=== PATIENT | male | born 1930 | race Caucasian/White ===

== ENCOUNTER 2018-06-13 14:34 | Emergency (ER) | payer MEDICARE, OTHER ==
[2018-06-13 15:04] VITALS: BP 146/70
--- NOTE | 2018-06-13 15:20 | EDM.PDOC ---
ED HPI GENERAL MEDICAL PROBLEM - General Chief Complaint: Lower Extremity Injury/Pain Stated Complaint: LT KNEE INJURY Time Seen by Provider: 06/13/18 15:06 Source of Information: Reports: Patient, Family, RN Notes Reviewed - History of Present Illness INITIAL COMMENTS - FREE TEXT/NARRATIVE: 87 year old male fell out of bed early this AM, landed on L knee and injured L small toe. was able to walk this past morning but now knee pain worsening to where he can't walk. L leg is swollen. L small toe is bruised. Also has low grade fever on arrival to ED, having chills at time of my exam. he is not coughing. Denies abd pain or voiding sx. 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 last noc Left Knee Pain Score (Numeric/FACES): 8 - Related Data Allergies Allergy/AdvReac Type Severity Reaction Status Date / Time ampicillin Allergy Cannot Verified 05/31/16 13:22 Remember hydrocodone Allergy Cannot Verified 05/31/16 13:22 Remember potassium Allergy Cannot Verified 05/31/16 13:22 Remember tramadol Allergy Cannot Verified 05/31/16 13:22 Remember Home Meds: Home Meds Benazepril HCl [Lotensin] 20 mg PO DAILY 05/19/14 [History] amLODIPine Besylate [Amlodipine Besylate] 10 mg PO DAILY 05/19/14 [History] Tamsulosin [Flomax] 0.4 mg PO BEDTIME 02/26/15 [History] Allopurinol [Zyloprim] 300 mg PO DAILY 07/07/15 [History] Multivitamin [Multivitamins] 1 tab PO DAILY 08/30/15 [History] Pantoprazole Sodium [Protonix] 40 mg PO DAILY 30 Days suspdr.pkt 09/02/15 [Rx] Aspirin 81 mg PO DAILY 09/29/15 [History] Ciprofloxacin HCl [Cipro] 500 mg PO BID #14 tablet 06/13/18 [Rx] Ezetimibe [Zetia] 10 mg PO DAILY 06/13/18 [History] Furosemide [Lasix] 40 mg PO DAILY 06/13/18 [History] Metoprolol Succinate 50 mg PO BID 06/13/18 [History] Pravastatin [Pravachol] 80 mg PO DAILY 06/13/18 [History] metFORMIN [Glucophage XR] 250 mg PO BID 06/13/18 [History] predniSONE [Prednisone] 20 mg PO BID PRN 06/13/18 [History] Past Medical History Other HEENT History: Bilateral hearing aids, glasses Cardiovascular History: Reports: CAD, High Cholesterol, Hypertension, [place] Respiratory History: Reports: Sleep Apnea Other Respiratory History: CPAP used at home, Gastrointestinal History: Reports: GERD, Hemorrhoids Genitourinary History: Reports: Renal Calculus Other Genitourinary History: Prostate cancer - seeds implanted. Musculoskeletal History: Reports: Gout, Osteoarthritis Neurological History: Reports: CVA Other Neuro History: no residual affect -improved with therapy Endocrine/Metabolic History: Reports: None Oncologic (Cancer) History: Reports: Prostate Other Oncologic History: Seeds implanted - Past Surgical History Cardiovascular Surgical History: Reports: Carotid Endarterectomy, Coronary Artery Stent GI Surgical History: Reports: Colonoscopy, Hernia, Inguinal Male Surgical History: Reports: Other (See Below) Social & Family History - Tobacco Use Smoking Status *Q: Former Smoker Used Tobacco, but Quit: Yes Month/Year Tobacco Last Used: 30 yr - Caffeine Use Caffeine Use: Reports: Coffee, Soda, Tea Other Caffeine Use: 3 cups per day - Recreational Drug Use Recreational Drug Use: No Review of Systems - Review of Systems Review Of Systems: See Below Constitutional: Reports: Chills, Fever (low grade fever on arrival to ED, not aware of prior fever) Nose: Reports: No Symptoms Mouth/Throat: Reports: No Symptoms Respiratory: Denies: Shortness of Breath, Pleuritic Chest Pain, Cough Cardiovascular: Denies: Chest Pain GI/Abdominal: Denies: Abdominal Pain, Nausea, Vomiting Musculoskeletal: Reports: Joint Pain (L knee) Skin: Reports: Bruising (L small toe) Neurological: Reports: Difficulty Walking. Denies: Numbness, Tingling ED EXAM, GENERAL - Physical Exam Exam: See Below General Appearance: Alert, Other (having shaking chills at time of my exam) Nose: Normal Inspection Throat/Mouth: Normal Inspection, Normal Oropharynx Head: Atraumatic. No: Facial Swelling Neck: Supple, Full Range of Motion Respiratory/Chest: No Respiratory Distress, Lungs Clear, Normal Breath Sounds. No: Rales, Rhonchi, Wheezing Cardiovascular: Tachycardia GI/Abdominal: Soft, Non-Tender Back Exam: No: CVA Tenderness (L), CVA Tenderness (R) Extremities: Normal Inspection, Pedal Edema (L leg, moderate), Other (moderate tenderness L knee, especially L post knee). No: Increased Warmth, Pallor, Redness Neurological: Alert, Oriented, No Motor/Sensory Deficits Skin Exam: Warm, Dry, Normal Color Course - Vital Signs Last Recorded V/S: Last Vital Signs Temp 100.1 F 06/13/18 15:02 Pulse 100 06/13/18 15:02 Resp 20 06/13/18 15:02 BP 146/70 H 06/13/18 15:02 Pulse Ox 93 L 06/13/18 15:02 - Orders/Labs/Meds Orders: Active Orders 24 hr Category Date Time Status Peripheral IV Care [RC] . DIRECTED Care 06/13/18 15:28 Active Chest 1V Frontal [CR] Stat Exams 06/13/18 15:27 Taken Knee Min 4V Lt [CR] Stat Exams 06/13/18 15:29 Taken Toes Great Toe Lt TA [CR] Stat Exams 06/13/18 15:29 Taken VL Duplex Lwr Ext Veins Ltd Lt [US] Stat Exams 06/13/18 15:28 Taken CULTURE URINE [RM] Stat Lab 06/13/18 19:16 Ordered UA W/MICROSCOPIC [URIN] Stat Lab 06/13/18 17:37 Ordered Peripheral IV Insertion Adult [OM.PC] Stat Oth 06/13/18 15:28 Ordered Labs: Laboratory Tests 06/13/18 06/13/18 06/13/18 Range/Units 15:50 15:50 15:50 WBC 12.17 H (4.23-9.07) K/mm3 RBC 4.34 L (4.63-6.08) M/mm3 Hgb 12.2 L (13.7-17.5) gm/L Hct 38.2 L (40.1-51.0) % MCV 88.0 (79.0-92.2) fl MCH 28.1 (25.7-32.2) pg MCHC 31.9 L (32.2-35.5) g/dl RDW Std Deviation 51.5 H (35.1-43.9) fL Plt Count 201 (163-337) K/mm3 MPV 11.3 (9.4-12.3) fl Neutrophils % (Manual) 88 H (40-60) % Band Neutrophils % 0 (0-10) % Lymphocytes % (Manual) 3 L (20-40) % Atypical Lymphs % 0 % Monocytes % (Manual) 9 (2-10) % Eosinophils % (Manual) 0 L (0.8-7.0) % Basophils % (Manual) 0 L (0.2-1.2) Platelet Estimate Adequate Plt Morphology Comment Normal RBC Morph Comment Normal Sodium 140 (136-145) mEq/L Potassium 4.3 (3.5-5.1) mEq/L Chloride 103 (98-107) mEq/L Carbon Dioxide 26 (21-32) mEq/L Anion Gap 15.3 H (5-15) BUN 29 H (7-18) mg/dL Creatinine 1.6 H (0.7-1.3) mg/dL Est Cr Clr Drug Dosing 26.67 mL/min Estimated GFR (MDRD) 41 (>60) mL/min BUN/Creatinine Ratio 18.1 H (14-18) Glucose 150 H (83-115) mg/dL Lactic Acid (0.4-2.0) mmol/L Calcium 9.0 (8.5-10.1) mg/dL Total Bilirubin 0.5 (0.2-1.0) mg/dL AST 28 (15-37) U/L ALT 22 (16-63) U/L Alkaline Phosphatase 87 (46-116) U/L C-Reactive Protein 8.7 H* (<1.0) mg/dL Total Protein 7.4 (6.4-8.2) g/dl Albumin 3.3 L (3.4-5.0) g/dl Globulin 4.1 gm/dL Albumin/Globulin Ratio 0.8 L (1-2) Urine Color (Yellow) Urine Appearance (Clear) Urine pH (5.0-8.0) Ur Specific Alsey (1.005-1.030) Urine Protein (Negative) Urine Glucose (UA) (Negative) Urine Ketones (Negative) Urine Occult Blood (Negative) Urine Nitrite (Negative) Urine Bilirubin (Negative) Urine Urobilinogen (0.2-1.0) Ur Leukocyte Esterase (Negative) Urine RBC (0-5) /hpf Urine WBC (0-5) /hpf Urine WBC Clumps (NOT SEEN) /hpf Ur Epithelial Cells (0-5) /hpf Urine Bacteria (FEW) /hpf Hyaline Casts (0-5) /lpf Urine Mucus (FEW) /hpf 06/13/18 06/13/18 Range/Units 15:50 17:37 WBC (4.23-9.07) K/mm3 RBC (4.63-6.08) M/mm3 Hgb (13.7-17.5) gm/L Hct (40.1-51.0) % MCV (79.0-92.2) fl MCH (25.7-32.2) pg MCHC (32.2-35.5) g/dl RDW Std Deviation (35.1-43.9) fL Plt Count (163-337) K/mm3 MPV (9.4-12.3) fl Neutrophils % (Manual) (40-60) % Band Neutrophils % (0-10) % Lymphocytes % (Manual) (20-40) % Atypical Lymphs % % Monocytes % (Manual) (2-10) % Eosinophils % (Manual) (0.8-7.0) % Basophils % (Manual) (0.2-1.2) Platelet Estimate Plt Morphology Comment RBC Morph Comment Sodium (136-145) mEq/L Potassium (3.5-5.1) mEq/L Chloride (98-107) mEq/L Carbon Dioxide (21-32) mEq/L Anion Gap (5-15) BUN (7-18) mg/dL Creatinine (0.7-1.3) mg/dL Est Cr Clr Drug Dosing mL/min Estimated GFR (MDRD) (>60) mL/min BUN/Creatinine Ratio (14-18) Glucose (83-115) mg/dL Lactic Acid 1.7 (0.4-2.0) mmol/L Calcium (8.5-10.1) mg/dL Total Bilirubin (0.2-1.0) mg/dL AST (15-37) U/L ALT (16-63) U/L Alkaline Phosphatase (46-116) U/L C-Reactive Protein (<1.0) mg/dL Total Protein (6.4-8.2) g/dl Albumin (3.4-5.0) g/dl Globulin gm/dL Albumin/Globulin Ratio (1-2) Urine Color Yellow (Yellow) Urine Appearance Clear (Clear) Urine pH 6.0 (5.0-8.0) Ur Specific Alsey 1.025 (1.005-1.030) Urine Protein 1+ H (Negative) Urine Glucose (UA) Negative (Negative) Urine Ketones Negative (Negative) Urine Occult Blood 1+ H (Negative) Urine Nitrite Negative (Negative) Urine Bilirubin Negative (Negative) Urine Urobilinogen 0.2 (0.2-1.0) Ur Leukocyte Esterase 1+ H (Negative) Urine RBC 5-10 H (0-5) /hpf Urine WBC 5-10 H (0-5) /hpf Urine WBC Clumps Few (NOT SEEN) /hpf Ur Epithelial Cells 0-5 (0-5) /hpf Urine Bacteria Few (FEW) /hpf Hyaline Casts 0-5 (0-5) /lpf Urine Mucus Few (FEW) /hpf Meds: Medications Discontinued Medications Generic Name Dose Route Start Last Admin Trade Name Freq PRN Reason Stop Dose Admin Acetaminophen 975 mg 06/13/18 15:34 06/13/18 16:08 Tylenol PO 06/13/18 15:35 975 mg NOW ONE Administration Hydromorphone HCl 0.25 mg 06/13/18 15:34 06/13/18 16:05 Dilaudid IVPUSH 06/13/18 15:35 0.25 mg ONETIME ONE Administration Ceftriaxone Sodium 1 gm/ 100 mls @ 200 mls/hr 06/13/18 18:35 06/13/18 18:50 Sodium Chloride IV 06/13/18 19:04 200 mls/hr ONETIME ONE Administration Sodium Chloride 500 mls @ 999 mls/hr 06/13/18 18:37 06/13/18 18:50 Normal Saline IV 06/13/18 19:07 999 mls/hr .BOLUS ONE Administration Sodium Chloride 10 ml 06/13/18 15:28 06/13/18 16:08 Saline Flush FLUSH 10 ml ASDIRECTED PRN Administration Keep Vein Open - Re-Assessments/Exams Free Text/Narrative Re-Assessment/Exam: 06/13/18 18:57 X rays of the knee and foot show no fx, US LLE neg for DVT. He has a low grade UTI, will give rocephin 1 gram IV and some IV fluid prior to discharge. He does feel up to going home. He does have a walker at home. Departure - Departure Time of Disposition: 19:20 Disposition: Home, Self-Care 01 Condition: Fair Clinical Impression: Fall Qualifiers: Encounter type: initial encounter Qualified Code(s): W19.XXXA - Unspecified fall, initial encounter Contusion of knee Qualifiers: Encounter type: initial encounter Laterality: left Qualified Code(s): S80.02XA - Contusion of left knee, initial encounter UTI (urinary tract infection) Qualifiers: Urinary tract infection type: acute cystitis Hematuria presence: without hematuria Qualified Code(s): N30.00 - Acute cystitis without hematuria - Discharge Information Prescriptions: Ciprofloxacin HCl [Cipro] 500 mg PO BID #14 tablet Instructions: Urinary Tract Infection, Adult Referrals: Johan Khan MD [Primary Care Provider] - Forms: ED Department Discharge Additional Instructions: drink plenty of water and tea to maintain hydration, cipro antibiotic 500 mg twice daily for 1 week. Dwight wrap L knee, use walker until knee and leg pain resolving. Follow up clinic with your regular medical provider in about 3 days if possible or first available appointment. A urine culture has been done. Results should be available in about 48 hours. Return to ED if symptoms worsening in any way. - My Orders Last 24 Hours: My Active Orders 06/13/18 15:27 Chest 1V Frontal [CR] Stat 06/13/18 15:28 Peripheral IV Care [RC] . DIRECTED VL Duplex Lwr Ext Veins Ltd Lt [US] Stat Peripheral IV Insertion Adult [OM.PC] Stat 06/13/18 15:29 Knee Min 4V Lt [CR] Stat Toes Great Toe Lt TA [CR] Stat 06/13/18 17:37 UA W/MICROSCOPIC [URIN] Stat 06/13/18 19:16 CULTURE URINE [RM] Stat - Assessment/Plan Last 24 Hours: My Active Orders 06/13/18 15:27 Chest 1V Frontal [CR] Stat 06/13/18 15:28 Peripheral IV Care [RC] . DIRECTED VL Duplex Lwr Ext Veins Ltd Lt [US] Stat Peripheral IV Insertion Adult [OM.PC] Stat 06/13/18 15:29 Knee Min 4V Lt [CR] Stat Toes Great Toe Lt TA [CR] Stat 06/13/18 17:37 UA W/MICROSCOPIC [URIN] Stat 06/13/18 19:16 CULTURE URINE [RM] Stat
[2018-06-13] MEDS ORDERED: Sodium Chloride 0.9% 10 ML Syringe FLUSH PRN (15:28)
[2018-06-13] MEDS ORDERED: HYDROmorphone 0.5 MG/0.5 ML SYRINGE IVPUSH ONE (15:34)
[2018-06-13] MEDS ORDERED: Acetaminophen 325 MG Tab PO ONE (15:34)
[2018-06-13] MEDS ORDERED: cefTRIAXone 1 GM in Sodium Chloride 0.9% 100 ML IV ONE (18:35)
[2018-06-13] MEDS ORDERED: Sodium Chloride 0.9% 500 ML IV ONE (18:37)
--- NOTE | 2018-06-15 10:02 | US ---
Left lower extremity deep venous ultrasound: Duplex and color flow imaging was obtained of the left common femoral, proximal greater saphenous, superficial femoral, popliteal, posterior tibial and peroneal veins. Right common femoral vein was also evaluated. Findings: No popliteal cyst is seen on the left side. Normal phasic flow, augmentation and compression is seen. Impression: 1. No evidence of deep venous thrombosis within the left lower extremity or within the right common femoral vein. Left popliteal fossa shows no ultrasound abnormality. Diagnostic code #1 I agree with preliminary report issued by [facility] ([facility] report finalized on 06/13/18, 6:57 PM Central Time)
--- NOTE | 2018-06-15 10:02 | CR ---
Left fifth toe: Three views of the left fifth toe were obtained. Fracture is felt to be present within the corner base of the distal phalanx as well as within the distal corner of the proximal phalanx. Intra-articular extension is noted of both fractures. Alignment appears to remain anatomic. No additional bony abnormality is seen other than osteopenia. Soft tissue swelling is noted. Impression: 1. Nondisplaced fractures as described above. 2. Osteopenia and soft tissue swelling is noted. Diagnostic code #3
--- NOTE | 2018-06-15 10:02 | CR ---
Left knee: Four portable views of the left knee were obtained. Comparison: No prior knee exam. Mild medial joint space narrowing is seen. Lateral joint space is preserved. Soft tissue swelling is noted. No joint effusion is seen. Osteopenia is noted. Minimal vascular calcification is present. No acute fracture or other abnormality is appreciated. Impression: 1. Findings as noted above. No acute bony abnormality is identified. Diagnostic code #2
--- NOTE | 2018-06-15 10:02 | CR ---
Chest: Portable view of the chest was obtained. Comparison: Prior chest x-ray of 07/08/15. Lung markings are mildly increased which appear fairly stable from previous exam. Heart size accentuated from portable technique. Tortuous thoracic aorta is seen. Bony structures appear unremarkable for the patient's age. Impression: 1. Increased lung markings are felt to be fairly stable from prior chest x-ray. Nothing acute is appreciated. Diagnostic code #2
== END 2018-06-13 19:30 | disposition home or self-care (01) ==
LOC: JD.ED 14:34
DX: S80.02XA Contusion of left knee, initial encounter (principal); N30.00 Acute cystitis without hematuria; I10 Essential (primary) hypertension; E78.00 Pure hypercholesterolemia, unspecified; I25.2 Old myocardial infarction; I25.10 Atherosclerotic heart disease of native coronary artery without angina pectoris; K21.9 Gastro-esophageal reflux disease without esophagitis; Z88.0 Allergy status to penicillin; Z88.5 Allergy status to narcotic agent; Z88.8 Allergy status to other drugs, medicaments and biological substances; Z79.899 Other long term (current) drug therapy; Z79.84 Long term (current) use of oral hypoglycemic drugs; Z86.73 Personal history of transient ischemic attack (TIA), and cerebral infarction without residual deficits; Z87.891 Personal history of nicotine dependence; W19.XXXA Unspecified fall, initial encounter
CPT/HCPCS: 36415; 71045; 73564; 73660; 80053; 81001; 83605; 85007; 85027; 86140; 87086; 93971; 96365; 96375; 99284; A9270; J0696; J1170; J7030; J7040; J7050

== ENCOUNTER 2018-11-26 12:51 | Emergency (ER) | payer MEDICARE, OTHER ==
--- NOTE | 2018-11-26 13:32 | EDM.PDOC ---
ED HPI GENERAL MEDICAL PROBLEM - General Chief Complaint: Genitourinary Problem Stated Complaint: UNABLE TO URINATE Time Seen by Provider: 11/26/18 13:32 Source of Information: Reports: Patient History Limitations: Reports: No Limitations - History of Present Illness INITIAL COMMENTS - FREE TEXT/NARRATIVE: 88-year-old male presents the ED with acute urinary retention. He was seen earlier this morning and was having trouble voiding but when she got to the ED he spontaneously was able to void. Since going home he voided twice but since that time i.e. 10:30 he has been unable to void at all. Has diffuse lower abdominal discomfort. Intermittent cramping pain. Was in the parking lot he did get a gush of urine come out of the bladder which soaked his pants. He has had previous prostate cancer treated with cesium seed implant. Doesn't have a Rain catheter twice in the past. Onset: Today Onset Date: 11/26/18 Duration: Hour(s): Location: Reports: Abdomen Quality: Reports: Ache (Diffuse lower abdominal pain with inability to pass his urine.), Pressure, Other Severity: Moderate (Occasional cramping pain) Improves with: Reports: None ( 7 on a 10) Worsens with: Reports: None Context: Reports: Other (Spontaneous occurrence). Denies: Activity, Exercise, Lifting, Sick Contact, Trauma Associated Symptoms: Reports: No Other Symptoms, Nausea/Vomiting. 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) (No recent changes to any was medications.) Lower Pelvic Pain Score (Numeric/FACES): 8 - Related Data Allergies Allergy/AdvReac Type Severity Reaction Status Date / Time ampicillin Allergy Cannot Verified 11/26/18 13:26 Remember hydrocodone Allergy Cannot Verified 11/26/18 13:26 Remember potassium Allergy Cannot Verified 11/26/18 13:26 Remember tramadol Allergy Cannot Verified 11/26/18 13:26 Remember Home Meds: Home Meds Benazepril HCl [Lotensin] 20 mg PO DAILY 05/19/14 [History] amLODIPine Besylate [Amlodipine Besylate] 10 mg PO DAILY 05/19/14 [History] Tamsulosin [Flomax] 0.4 mg PO BEDTIME 02/26/15 [History] Allopurinol [Zyloprim] 300 mg PO DAILY 07/07/15 [History] Multivitamin [Multivitamins] 1 tab PO DAILY 08/30/15 [History] Pantoprazole Sodium [Protonix] 40 mg PO DAILY 30 Days suspdr.pkt 09/02/15 [Rx] Ezetimibe [Zetia] 10 mg PO DAILY 06/13/18 [History] Furosemide [Lasix] 40 mg PO DAILY 06/13/18 [History] Metoprolol Succinate 50 mg PO BID 06/13/18 [History] Pravastatin [Pravachol] 80 mg PO DAILY 06/13/18 [History] metFORMIN [Glucophage XR] 250 mg PO BID 06/13/18 [History] predniSONE [Prednisone] 20 mg PO BID PRN 06/13/18 [History] Aspirin [Ecotrin] 81 mg PO DAILY 11/26/18 [History] Nitroglycerin [Nitrostat] 0.4 mg SL ASDIRECTED PRN 11/26/18 [History] Vit C/Gonzales & Celery Ex/Grp E [Tart Gonzales] 1 cap PO DAILY 11/26/18 [History] Past Medical History Other HEENT History: Bilateral hearing aids, glasses Cardiovascular History: Reports: CAD, High Cholesterol, Hypertension, PA, Stents (Has [address] Respiratory History: Reports: Sleep Apnea Other Respiratory History: CPAP used at home, Gastrointestinal History: Reports: GERD, Hemorrhoids Genitourinary History: Reports: Renal Calculus Other Genitourinary History: Prostate cancer - seeds implanted. Musculoskeletal History: Reports: Gout, Osteoarthritis Neurological History: Reports: CVA Other Neuro History: no residual affect -improved with therapy Endocrine/Metabolic History: Reports: None Oncologic (Cancer) History: Reports: Prostate Other Oncologic History: Seeds implanted - Past Surgical History Cardiovascular Surgical History: Reports: Carotid Endarterectomy, Coronary Artery Stent GI Surgical History: Reports: Colonoscopy, Hernia, Inguinal Male Surgical History: Reports: Other (See Below) Social & Family History - Caffeine Use Caffeine Use: Reports: Coffee, Soda, Tea Other Caffeine Use: 3 cups per day - Living Situation & Occupation Living situation: Reports: Occupation: Retired ED ROS GENERAL - Review of Systems Review Of Systems: See Below Constitutional: Reports: Fatigue (From not sleeping much last night.). Denies: Fever, Chills, Malaise, Weakness HEENT: Reports: Glasses Respiratory: Reports: Shortness of Breath. Denies: Wheezing, Pleuritic Chest Pain, Cough Cardiovascular: Reports: No Symptoms, Blood Pressure Problem Endocrine: Reports: Fatigue GI/Abdominal: Reports: Abdominal Pain, Other (Bowels work normally this morning) . Denies: Constipation (See history of present illness.), Diarrhea : Reports: Frequency, Urinary Retention Musculoskeletal: Reports: Back Pain, Joint Pain Skin: Reports: No Symptoms (Knees hips and neck at times) Neurological: Reports: No Symptoms Psychiatric: Reports: No Symptoms Hematologic/Lymphatic: Reports: No Symptoms Immunologic: Reports: No Symptoms ED EXAM, RENAL/ - Physical Exam Exam: See Below Exam Limited By: No Limitations General Appearance: Alert, WD/WN, Moderate Distress. No: Anxious Eye Exam: Bilateral Eye: Normal Inspection Throat/Mouth: Normal Inspection, Normal Lips, Normal Oropharynx, Other (Upper dentures) Neck: Normal Inspection, Supple, Non-Tender, Full Range of Motion. No: Carotid Bruit, Lymphadenopathy (L), Lymphadenopathy (R) Respiratory/Chest: No Respiratory Distress, Lungs Clear, Normal Breath Sounds, No Accessory Muscle Use, Respiratory Distress Cardiovascular: Normal Peripheral Pulses (Mild tachypnea and 18/m but sats are only 92% on room air.), Regular Rate, Rhythm, No Edema, No Gallop GI/Abdominal: No Organomegaly, Distended (Dullness to percussion up past the umbilicus with tenderness and firmness to the abdomen below the umbilicus to the suprapubic symphysis compatible with bladder distention.), Abnormal Bowel Sounds (Bowel sounds are very quiet sent.) (Male) Exam: No Hernia Extremities: Normal Inspection, Normal Range of Motion, Other Neurological: Alert, Oriented (Evidence of posterior 30 changes both knees and hips.), CN II-XII Intact, Normal Cognition Psychiatric: Normal Affect, Anxious, Other (In obvious discomfort.) EKG INTERPRETATION EKG Date: 11/26/18 Time: 18:03 Rhythm: Other (Frequent unifocal PVCs) Rate (Beats/Min): 94 [place]: Normal P-Wave: Present (Borderline first-degree AV block) QRS: Other (Upon her branch block pattern. Left ventricular hypertrophy pattern. Q waves V1 to V5 suspect old anteroseptal myocardial infarction) ST-T: Other (Decreased voltage in the limb leads.) QT: Prolonged (QT interval is borderline prolonged.) EKG Interpretation Comments: Abnormal ECG Course - Vital Signs Last Recorded V/S: Last Vital Signs Temp 36.8 C 11/26/18 17:55 Pulse 85 11/26/18 13:19 Resp 20 11/26/18 17:55 BP 135/81 11/26/18 17:55 Pulse Ox 96 11/26/18 17:55 - Orders/Labs/Meds Orders: Active Orders 24 hr Category Date Time Status Bladder Scan [RC] ASDIRECTED Care 11/26/18 13:37 Active EKG Documentation Completion [RC] STAT Care 11/26/18 17:48 Active Rain Catheter Insertion [Insert Urinary Catheter] [OM. Care 11/26/18 13:45 Ordered PC] Q24H Urinary Catheter Assessment [RC] ASDIRECTED Care 11/26/18 13:41 Active Chest 1V Frontal [CR] Stat Exams 11/26/18 17:48 Taken COMPREHENSIVE METABOLIC PN,CMP [CHEM] Stat Lab 11/26/18 18:10 Received CRP [C-REACTIVE PROTEIN] [CHEM] Stat Lab 11/26/18 18:10 Received CULTURE URINE [RM] Stat Lab 11/26/18 14:28 Received MAGNESIUM [CHEM] Stat Lab 11/26/18 18:10 Received PRO B-TYPE NATRIUR PEPT,BNPPRO [CHEM] Stat Lab 11/26/18 18:10 Received PSA SCREEN [CHEM] Stat Lab 11/26/18 18:10 Received Sodium Chloride 0.9% [Normal Saline] 1,000 ml Med 11/26/18 15:00 Active IV ASDIRECTED Medication Orders Sodium Chloride (Normal Saline) 1,000 mls @ 125 mls/hr IV ASDIRECTED ABRAHAM Last Admin: 11/26/18 15:45 Dose: 125 mls/hr Labs: Laboratory Tests 11/26/18 11/26/18 Range/Units 14:28 18:10 WBC 9.07 (4.23-9.07) K/mm3 RBC 4.43 L (4.63-6.08) M/mm3 Hgb 12.1 L (13.7-17.5) gm/L Hct 38.1 L (40.1-51.0) % MCV 86.0 (79.0-92.2) fl MCH 27.3 (25.7-32.2) pg MCHC 31.8 L (32.2-35.5) g/dl RDW Std Deviation 50.6 H (35.1-43.9) fL Plt Count 250 (163-337) K/mm3 MPV 10.4 (9.4-12.3) fl Neutrophils % (Manual) 80 H (40-60) % Band Neutrophils % 2 (0-10) % Lymphocytes % (Manual) 9 L (20-40) % Atypical Lymphs % 0 % Monocytes % (Manual) 7 (2-10) % Eosinophils % (Manual) 2 (0.8-7.0) % Basophils % (Manual) 0 L (0.2-1.2) Platelet Estimate Adequate Poikilocytosis 1+ slight Anisocytosis 1+ slight Ovalocytes 1+ slight RBC Morph Comment Not Reportable Urine Color Yellow (Yellow) Urine Appearance Slt cloudy H (Clear) Urine pH 6.0 (5.0-8.0) Ur Specific [place] 1.020 (1.005-1.030) Urine Protein 2+ H (Negative) Urine Glucose (UA) Negative (Negative) Urine Ketones Negative (Negative) Urine Occult Blood 2+ H (Negative) Urine Nitrite Negative (Negative) Urine Bilirubin Negative (Negative) Urine Urobilinogen 0.2 (0.2-1.0) Ur Leukocyte Esterase Negative (Negative) Urine RBC 75-100 H (0-5) /hpf Urine WBC 10-20 H (0-5) /hpf Urine WBC Clumps Occasional (NOT SEEN) /hpf Ur Epithelial Cells 0-5 (0-5) /hpf Urine Bacteria Few (FEW) /hpf Urine Mucus Few (FEW) /hpf Meds: Medications Generic Name Dose Route Start Last Admin Trade Name Freq PRN Reason Stop Dose Admin Sodium Chloride 1,000 mls @ 125 mls/hr 11/26/18 15:00 11/26/18 15:45 Normal Saline IV 125 mls/hr ASDIRECTED ABRAHAM Administration Discontinued Medications Generic Name Dose Route Start Last Admin Trade Name Freq PRN Reason Stop Dose Admin Fentanyl 100 mcg 11/26/18 14:56 11/26/18 16:08 Sublimaze IVPUSH 11/26/18 14:57 100 mcg ONETIME ONE Administration Fentanyl Confirm 11/26/18 17:18 Sublimaze Administered 11/26/18 17:19 Dose 100 mcg .ROUTE .STK-MED ONE Hydromorphone HCl 1 mg 11/26/18 14:55 11/26/18 15:45 Dilaudid IVPUSH 11/26/18 14:56 1 mg ONETIME ONE Administration Ceftriaxone Sodium 1 gm/ 100 mls @ 200 mls/hr 11/26/18 17:42 11/26/18 18:07 Sodium Chloride IV 11/26/18 18:11 200 mls/hr ONETIME ONE Administration Lidocaine HCl 10 ml 11/26/18 13:41 11/26/18 13:47 Xylocaine 2% Jelly MUCMEM 11/26/18 13:42 10 ml ONETIME ONE Administration Lidocaine/Epinephrine Confirm 11/26/18 17:15 Xylocaine 1% With Epinephrine 1:100,000 Administered 11/26/18 17:16 Dose 20 ml .ROUTE .STK-MED ONE Metoclopramide HCl 7.5 mg 11/26/18 14:55 11/26/18 15:45 Reglan IVPUSH 11/26/18 14:56 7.5 mg ONETIME ONE Administration Midazolam HCl 5 mg 11/26/18 14:56 Versed 1 Mg/Ml IVPUSH 11/26/18 14:57 ONETIME ONE Midazolam HCl 5 mg 11/26/18 15:45 11/26/18 16:08 Versed 5 Mg/Ml IV 11/26/18 15:46 5 mg ONETIME ONE Administration - Radiology Interpretation Free Text/Narrative:: 88-year-old male presents the ED with acute urinary retention. Patient states he was here earlier this morning with urinary retention but was able to get his bladder working and therefore he did not go home with a Rain catheter. Attempts to place a Rain catheter apparently did not meet with much success. He denies any blood per urethra. He said previous prostate cancer treated by cesium seed implant many years ago. He has had urinary retention only once in the past. Presents once again with inability to void since 10:30 this morning and has been drinking plenty of fluids. Clinically the bladder is distended up past the umbilicus. Plan urogenital to numb the urethra. Will attempt to place a 14-gauge or 16-gauge Coude tipped Rain catheter. - Re-Assessments/Exams Free Text/Narrative Re-Assessment/Exam: 11/26/18 15:05: Patient simply found it too painful to try and pass Rain catheter even with the aid of lidocaine gel per urethra. I will therefore attempt to do this under conscious sedation with the aid of Versed and fentanyl. I will begin to give him Dilaudid 1 mg IV now and Reglan 7.5 mg. 15- 20 minutes we will proceed with conscious sedation procedure with potential passage of 16-gauge coud tip Rain catheter. He is only able to drip a bit of urine. Has a constant sense of urge to void. 11/26/18: 17:20: Under conscious sedation attempts to place a coud-tipped 16- gauge and 14-gauge Rain catheter failed. Patient still expressed a good deal of pain with this attempted procedure and therefore received conscious sedation with Versed 3 mg IV and fentanyl 50 g IV. The attempt to pass a Rain catheter was then abandoned. Attempts to place a suprapubic catheter with a kit that I am not familiar with was carried out. This was done under ultrasound guidance. Local anesthetic was utilized to anesthetize the abdominal wall down to the urinary bladder. Attempted to place a dilator into the urinary bladder in 2 locations and did get urine flow but unable to aspirate continued urine and no continuous urinary flow from these very firm dilators occurred. I felt very comfortable therefore leaving this firm dilators in place and it did not appear to be providing adequate drainage of urine. You're for procedure was abandoned. I was able to enter the bladder and get mild urinary return. However attempts to place the dilators and get good return failed. I also could not aspirate a substantial amount of urine. I did not feel comfortable leaving these dilators in place as they are very rigid. Both guidewires unfortunately had fallen off the table and therefore I had to abandon the procedure since we don't have any further suprapubic catheter kits available to us. The urinalysis done earlier did reveal a urinary tract infection and urine culture has been ordered. Patient will save Rocephin 1 g IV. He will require transferred to [place] and they prefer to go to [facility] as he has seen Dr. Lawler many times in the past. I will make appropriate arrangements 11/26/18 17:57 spoke with on-call urologist Dr. Foreman at [facility] in [place] and he is accepted care. Patient is to be transferred to the ER for potential catheter placement. 11/26/18 18:24 Patient will be sent per [facility] since he only requires BLS care oxygen per nasal cannula 2 L and a saline lock. He is to be seen at the ER at [facility]. 11/26/18 18:39 chest x-ray done portably is essentially unchanged from previous chest x-rays. It gives a appearance of diffuse vascular congestion. There is a hazy infiltrate along the right hemidiaphragm which appears to be slightly elevated. His is unchanged from previous chest x-rays. This most likely represents fluid cardiac silhouette is moderately enlarged with tortuous thoracic aorta. Copy of CXR sent by PACS to [facility] in [place] [facility]. 11/26/18 18:47 Part of his labs are back. Total white count is 9.07 with 80% neutrophils and 2 band cells reported. Hemoglobin is 12.1 with hematocrit of 38.1. Platelet count is 250,000. Urinalysis showed slightly cloudy. 2+ proteinuria 2+ occult blood. Negative nitrates. Negative leukocyte esterase.. However 75-100 RBCs per high-power field and 10-20 WBCs per high-power field with white blood cell clumps appreciated. Urine culture ordered. 11/26/18 19:14 Chemistry is now back. Sodium is 141 with potassium slightly low at 3.2. Chloride 105 with a bicarbonate of 26. And a gap is 13.2. B1 was 27 with a riding of 1.4. GFR is estimated at 48. Glucose was 187. Calcium 8.5. Magnesium 2.0. Liver function normal. C-reactive protein is 2.0. BNP is 5090. Lasix was withheld at this time until a Rain catheter gets placed. Of note the BNP correlates with his chest x-ray which suggests diffuse vascular congestion. Routine 6.6 with an albumin fraction of 3.0. Say screen was less than 0.1. Departure - Departure Time of Disposition: 18:50 Disposition: DC/Tfer to Acute Hospital 02 Condition: Fair Clinical Impression: Acute urinary retention, UTI, Urinary tract infectious disease, Prostate cancer Urinary tract infection Qualifiers: Urinary tract infection type: acute cystitis Hematuria presence: without hematuria Qualified Code(s): N30.00 - Acute cystitis without hematuria - Discharge Information *PRESCRIPTION DRUG MONITORING PROGRAM REVIEWED*: Not Applicable *COPY OF PRESCRIPTION DRUG MONITORING REPORT IN PATIENT MING: Not Applicable Referrals: Johan Khan MD [Primary Care Provider] - Forms: ED Department Discharge Additional Instructions: Patient presented with acute urinary retention. Significant urgency and can only dribble a small amount of urine. Urinalysis obtained in the ED which suggested an infective process and culture was ordered. Initial bladder ultrasound suggested 550 mils in the urinary bladder. Patient was only able to dribble a small amount of urine. Attempts to place Rain catheter with the aid of lidocaine gel and conscious sedation failed. This was with the use of both a 16-gauge coud-tip as well as a 14-gauge coud tipped catheter. Attempts to place a suprapubic catheter also failed after 2 attempts. Could not sustain good urine drainage after placement of bladder dilators both a #8 in #10 Welsh were utilized. These were quite rigid and did not provide satisfactory urine drainage. Therefore patient was sent to [facility] in [place] where he is to be seen by urology services--Dr. Foreman has accepted care and will see him in the ED. I would be to attempt a Rain catheter placement in the emergency department. Patient has received Rocephin 1 g IV for suspect urinary tract infection and post procedure with multiple attempted catheterization today and suprapubic catheterization. - My Orders Last 24 Hours: My Active Orders 11/26/18 13:37 Bladder Scan [RC] ASDIRECTED 11/26/18 13:41 Urinary Catheter Assessment [RC] ASDIRECTED 11/26/18 13:45 Rain Catheter Insertion [Insert Urinary Catheter] [OM.PC] Q24H 11/26/18 14:28 CULTURE URINE [RM] Stat 11/26/18 15:00 Sodium Chloride 0.9% [Normal Saline] 1,000 ml IV ASDIRECTED 11/26/18 17:48 EKG Documentation Completion [RC] STAT Chest 1V Frontal [CR] Stat 11/26/18 18:10 COMPREHENSIVE METABOLIC PN,CMP [CHEM] Stat CRP [C-REACTIVE PROTEIN] [CHEM] Stat MAGNESIUM [CHEM] Stat PRO B-TYPE NATRIUR PEPT,BNPPRO [CHEM] Stat PSA SCREEN [CHEM] Stat - Assessment/Plan Last 24 Hours: My Active Orders 11/26/18 13:37 Bladder Scan [RC] ASDIRECTED 11/26/18 13:41 Urinary Catheter Assessment [RC] ASDIRECTED 11/26/18 13:45 Rain Catheter Insertion [Insert Urinary Catheter] [OM.PC] Q24H 11/26/18 14:28 CULTURE URINE [RM] Stat 11/26/18 15:00 Sodium Chloride 0.9% [Normal Saline] 1,000 ml IV ASDIRECTED 11/26/18 17:48 EKG Documentation Completion [RC] STAT Chest 1V Frontal [CR] Stat 11/26/18 18:10 COMPREHENSIVE METABOLIC PN,CMP [CHEM] Stat CRP [C-REACTIVE PROTEIN] [CHEM] Stat MAGNESIUM [CHEM] Stat PRO B-TYPE NATRIUR PEPT,BNPPRO [CHEM] Stat PSA SCREEN [CHEM] Stat
[2018-11-26] MEDS ORDERED: Lidocaine 2% Jelly 10 ML Urojet MUCMEM ONE (13:41)
[2018-11-26] MEDS ORDERED: Metoclopramide 10 MG/2 ML SDV IVPUSH ONE (14:55)
[2018-11-26] MEDS ORDERED: HYDROmorphone 1 MG/ML Syringe IVPUSH ONE (14:55)
[2018-11-26] MEDS ORDERED: Midazolam 1 MG/ML 5 ML SDV IVPUSH ONE ×2 (14:56→20:07)
[2018-11-26] MEDS ORDERED: fentaNYL 100 MCG/2 ML SDV IVPUSH ONE ×2 (14:56→19:52)
[2018-11-26] MEDS ORDERED: Sodium Chloride 0.9% 1,000 ML IV SCH (15:00)
[2018-11-26] MEDS ORDERED: Midazolam 5 MG/ML 5 ML MDV IV ONE (15:45)
[2018-11-26] MEDS ORDERED: Lidocaine 1% with EPINEPHrine 1:100,000 20 ML MDV ONE (17:15)
[2018-11-26] MEDS ORDERED: fentaNYL 100 MCG/2 ML SDV ONE (17:18)
[2018-11-26] MEDS ORDERED: cefTRIAXone 1 GM in Sodium Chloride 0.9% 100 ML IV ONE (17:42)
[2018-11-26 17:57] VITALS: BP 135/81
[2018-11-26] MEDS ORDERED: Lidocaine 1% with EPINEPHrine 1:100,000 20 ML MDV INJECT ONE (19:52)
[2018-11-26] MEDS ORDERED: Midazolam 1 MG/ML 2 ML SDV IVPUSH ONE (19:53)
--- NOTE | 2018-11-27 08:38 | CR ---
Chest: Portable view of the chest was obtained. Comparison: Prior chest x-ray of 06/13/18. Lung markings are increased which appear fairly stable from previous exam. Heart size at the upper limits of normal. Mild right basilar atelectasis is seen. Tortuous thoracic aorta is noted. Bony structures are grossly intact. Impression: 1. Mild right basilar atelectasis. 2. Other findings as described above appear stable from previous exam. Diagnostic code #2
== END 2018-11-26 18:55 ==
LOC: JD.ED 12:51
DX: N30.00 Acute cystitis without hematuria (principal); C61 Malignant neoplasm of prostate; I25.10 Atherosclerotic heart disease of native coronary artery without angina pectoris; E78.00 Pure hypercholesterolemia, unspecified; I10 Essential (primary) hypertension; Z95.5 Presence of coronary angioplasty implant and graft; Z88.8 Allergy status to other drugs, medicaments and biological substances; Z88.0 Allergy status to penicillin; Z88.5 Allergy status to narcotic agent; Z79.899 Other long term (current) drug therapy; R33.9 Retention of urine, unspecified; K21.9 Gastro-esophageal reflux disease without esophagitis; I25.2 Old myocardial infarction; Z88.1 Allergy status to other antibiotic agents; Z88.6 Allergy status to analgesic agent
CPT/HCPCS: 36415; 51102; 51798; 71045; 80053; 81001; 83735; 83880; 85007; 85027; 86140; 87086; 93005; 96361; 96365; 96375; 96376; 99152; 99153; 99283; 99285; G0103; J0696; J1170; J2250; J2765; J3010; J7030; J7040; 51702; 93010

== ENCOUNTER 2019-01-14 23:21 | Inpatient (IN) | payer MEDICARE, OTHER ==
[2019-01-15] MEDS ORDERED: Furosemide 40 MG/4 ML VIAL IVPUSH ONE (00:54)
--- NOTE | 2019-01-15 01:00 | EDM.PDOC ---
ED HPI GENERAL MEDICAL PROBLEM - General Chief Complaint: Respiratory Problem Stated Complaint: SHORT OF BREATH Time Seen by Provider: 01/14/19 23:46 Source of Information: Reports: Patient, Family (), RN Notes Reviewed History Limitations: Reports: No Limitations - History of Present Illness INITIAL COMMENTS - FREE TEXT/NARRATIVE: The patient states that he has felt short of breath, even at rest, for the past few days. He has orthopnea, but does not like using pillows, and so continues to sleep flat. His symptoms became worse around 22:00 tonight, while in bed, and his thought that he was wheezing, wherefore he was brought to the ED. The patient reports a slight cough productive of a tannish sputum. No recent fever, but he has had occasional chills. No recent chest pain. No recent nausea , vomiting, constipation, diarrhea, or urinary symptoms. The patient has a known history of CHF, for which she takes oral Lasix. He states that he has been urinating a lot recently, including today. The patient's PCP is Dr. Khan. The patient's Senior Windows Engineer is Dr. Lucero. The patient's Urologist is Dr. Lawler. - Related Data Allergies Allergy/AdvReac Type Severity Reaction Status Date / Time ampicillin Allergy Cannot Verified 01/14/19 23:28 Remember hydrocodone Allergy Cannot Verified 01/14/19 23:28 Remember potassium Allergy Cannot Verified 01/14/19 23:28 Remember tramadol Allergy Cannot Verified 01/14/19 23:28 Remember Home Meds: Home Meds Benazepril HCl [Lotensin] 20 mg PO DAILY 05/19/14 [History] amLODIPine Besylate [Amlodipine Besylate] 10 mg PO DAILY 05/19/14 [History] Tamsulosin [Flomax] 0.4 mg PO BEDTIME 02/26/15 [History] Allopurinol [Zyloprim] 300 mg PO DAILY 07/07/15 [History] Multivitamin [Multivitamins] 1 tab PO DAILY 08/30/15 [History] Pantoprazole Sodium [Protonix] 40 mg PO DAILY 30 Days suspdr.pkt 09/02/15 [Rx] Ezetimibe [Zetia] 10 mg PO DAILY 06/13/18 [History] Furosemide [Lasix] 40 mg PO DAILY 06/13/18 [History] Metoprolol Succinate 50 mg PO BID 06/13/18 [History] Pravastatin [Pravachol] 80 mg PO DAILY 06/13/18 [History] metFORMIN [Glucophage XR] 250 mg PO BID 06/13/18 [History] predniSONE [Prednisone] 20 mg PO BID PRN 06/13/18 [History] Aspirin [Ecotrin] 81 mg PO DAILY 11/26/18 [History] Nitroglycerin [Nitrostat] 0.4 mg SL ASDIRECTED PRN 11/26/18 [History] Vit C/Gonzales & Celery Ex/Grp E [Tart Gonzales] 1 cap PO DAILY 11/26/18 [History] Past Medical History HEENT History: Reports: Hard of Hearing, Impaired Vision Other HEENT History: Bilateral hearing aids, glasses Cardiovascular History: Reports: CAD, Heart Failure, High Cholesterol, Hypertension, NE Respiratory History: Reports: Sleep Apnea (nightly CPAP 4 or 5) Gastrointestinal History: Reports: GERD, Hemorrhoids Genitourinary History: Reports: BPH, Chronic Renal Insuffiency, Renal Calculus Musculoskeletal History: Reports: Gout (suspected), Osteoarthritis Neurological History: Reports: CVA (transient left hemiparesis, since resolved) Endocrine/Metabolic History: Reports: Diabetes, Type II Oncologic (Cancer) History: Reports: Prostate - Past Surgical History Cardiovascular Surgical History: Reports: Carotid Endarterectomy (right), Coronary Artery Stent (x 2) GI Surgical History: Reports: Colonoscopy, Hernia, Inguinal (right) Male Surgical History: Reports: Other (See Below) (Radioactive prostate seeding) Social & Family History - Tobacco Use Smoking Status *Q: Never Smoker Tobacco Use Within Last Twelve Months: Smokeless Tobacco (Quit chewing tobacco around 1984) Second Hand Smoke Exposure: No - Caffeine Use Caffeine Use: Reports: Coffee, Soda, Tea Other Caffeine Use: 3 cups per day - Alcohol Use Alcohol Use History: No - Recreational Drug Use Recreational Drug Use: No - Living Situation & Occupation Living situation: Reports: , with Spouse Occupation: Retired ED ROS GENERAL - Review of Systems Review Of Systems: ROS reveals no pertinent complaints other than HPI. ED EXAM, GENERAL - Physical Exam Exam: See Below Exam Limited By: No Limitations General Appearance: Alert, WD/WN, No Apparent Distress Eye Exam: Bilateral Eye: EOMI, Normal Inspection Ears: Normal External Exam, Hearing Grossly Normal Nose: Normal Inspection Throat/Mouth: Normal Inspection, Normal Lips, Normal Voice, No Airway Compromise Head: Atraumatic, Normocephalic Neck: Normal Inspection, Full Range of Motion Respiratory/Chest: No Respiratory Distress, Lungs Clear, Normal Breath Sounds, No Accessory Muscle Use, Other (The patient was examined while sitting up. Some wheezes were noted after he was supine for awhile.). No: Decreased Breath Sounds, Crackles, Rhonchi, Wheezing, Prolonged Expiration Cardiovascular: Normal Peripheral Pulses, Regular Rate, Rhythm, No Gallop, No JVD, No Murmur, No Rub Peripheral Pulses: 4+: Radial (L), Radial (R) GI/Abdominal: Normal Bowel Sounds, Soft, Non-Tender, No Organomegaly, No Distention, No Abnormal Bruit, No Mass, Other (Obese) (Male) Exam: Deferred Rectal (Males) Exam: Deferred Back Exam: Normal Inspection, Full Range of Motion, NT Extremities: Normal Inspection, Normal Range of Motion, Normal Capillary Refill , Other (Trace bilateral pretibial edema) Neurological: Alert, Oriented, Normal Cognition, No Motor/Sensory Deficits Psychiatric: Normal Affect Skin Exam: Warm, Dry, Intact, Normal Color, No Rash EKG INTERPRETATION EKG Date: 01/14/19 Time: 23:41 Rhythm: NSR Rate (Beats/Min): 80 [place]: Normal P-Wave: Present QRS: LBBB ST-T: Normal QT: Prolonged (QTc 494 ms) Comparison: No Change (11/26/2019) Course - Vital Signs Last Recorded V/S: Last Vital Signs Temp 36.6 C 01/14/19 23:25 Pulse 88 01/14/19 23:25 Resp 19 01/14/19 23:25 BP 130/74 01/14/19 23:25 Pulse Ox 90 L 01/14/19 23:25 - Orders/Labs/Meds Orders: Active Orders 24 hr Category Date Time Status EKG 12 Lead [EKG Documentation Completion] [RC] STAT Care 01/14/19 23:47 Active Chest 2V [CR] Stat Exams 01/14/19 23:51 Taken CULTURE BLOOD [BC] Stat Lab 01/14/19 23:51 Received CULTURE BLOOD [BC] Stat Lab 01/14/19 23:51 Received Blood Culture x2 Reflex Set [OM.PC] Stat Oth 01/14/19 23:51 Ordered Labs: Laboratory Tests 01/14/19 01/14/19 01/14/19 Range/Units 23:35 23:35 23:35 WBC 7.37 (4.23-9.07) K/mm3 RBC 4.51 L (4.63-6.08) M/mm3 Hgb 12.0 L (13.7-17.5) gm/L Hct 38.7 L (40.1-51.0) % MCV 85.8 (79.0-92.2) fl MCH 26.6 (25.7-32.2) pg MCHC 31.0 L (32.2-35.5) g/dl RDW Std Deviation 52.5 H (35.1-43.9) fL Plt Count 216 (163-337) K/mm3 MPV 10.7 (9.4-12.3) fl Neutrophils % (Manual) 68 H (40-60) % Band Neutrophils % 2 (0-10) % Lymphocytes % (Manual) 13 L (20-40) % Atypical Lymphs % 0 % Monocytes % (Manual) 11 H (2-10) % Eosinophils % (Manual) 6 (0.8-7.0) % Basophils % (Manual) 0 L (0.2-1.2) Platelet Estimate Adequate Plt Morphology Comment Normal Hypochromasia 1+ slight Anisocytosis 1+ slight Ovalocytes 1+ slight RBC Morph Comment Not Reportable D-Dimer, Quantitative 1.01 H (0.19-0.50) mg/L Puncture Site ABG pH (7.35-7.45) ABG pCO2 (35.0-45.0) mmHg ABG pO2 (80.0-100.0) mmHg ABG HCO3 (22.0-26.0) meq/L ABG O2 Saturation (96.0-97.0) % ABG Base Excess (-2-2.0) A-a Gradient mmHg O2 Delivery Device FiO2 (21.00-100.00) % Sodium 143 (136-145) mEq/L Potassium 3.7 (3.5-5.1) mEq/L Chloride 106 (98-107) mEq/L Carbon Dioxide 28 (21-32) mEq/L Anion Gap 12.7 (5-15) BUN 23 H (7-18) mg/dL Creatinine 1.4 H (0.7-1.3) mg/dL Est Cr Clr Drug Dosing 35.96 mL/min Estimated GFR (MDRD) 48 (>60) mL/min BUN/Creatinine Ratio 16.4 (14-18) Glucose 123 H (83-115) mg/dL Lactic Acid (0.4-2.0) mmol/L Calcium 9.3 (8.5-10.1) mg/dL Total Bilirubin 0.3 (0.2-1.0) mg/dL AST 19 (15-37) U/L ALT 19 (16-63) U/L Alkaline Phosphatase 79 (46-116) U/L Troponin I 0.032 (0.00-0.056) ng/mL NT-Pro-B Natriuret Pep (0-450) pg/mL Total Protein 6.8 (6.4-8.2) g/dl Albumin 3.1 L (3.4-5.0) g/dl Globulin 3.7 gm/dL Albumin/Globulin Ratio 0.8 L (1-2) 01/14/19 01/15/19 01/15/19 Range/Units 23:35 00:10 00:10 WBC (4.23-9.07) K/mm3 RBC (4.63-6.08) M/mm3 Hgb (13.7-17.5) gm/L Hct (40.1-51.0) % MCV (79.0-92.2) fl MCH (25.7-32.2) pg MCHC (32.2-35.5) g/dl RDW Std Deviation (35.1-43.9) fL Plt Count (163-337) K/mm3 MPV (9.4-12.3) fl Neutrophils % (Manual) (40-60) % Band Neutrophils % (0-10) % Lymphocytes % (Manual) (20-40) % Atypical Lymphs % % Monocytes % (Manual) (2-10) % Eosinophils % (Manual) (0.8-7.0) % Basophils % (Manual) (0.2-1.2) Platelet Estimate Plt Morphology Comment Hypochromasia Anisocytosis Ovalocytes RBC Morph Comment D-Dimer, Quantitative (0.19-0.50) mg/L Puncture Site Rt radial ABG pH 7.42 (7.35-7.45) ABG pCO2 41.1 (35.0-45.0) mmHg ABG pO2 38.0 L* (80.0-100.0) mmHg ABG HCO3 26.1 H (22.0-26.0) meq/L ABG O2 Saturation 63.5 L (96.0-97.0) % ABG Base Excess 1.9 (-2-2.0) A-a Gradient 45 mmHg O2 Delivery Device Room air FiO2 21.00 (21.00-100.00) % Sodium (136-145) mEq/L Potassium (3.5-5.1) mEq/L Chloride (98-107) mEq/L Carbon Dioxide (21-32) mEq/L Anion Gap (5-15) BUN (7-18) mg/dL Creatinine (0.7-1.3) mg/dL Est Cr Clr Drug Dosing mL/min Estimated GFR (MDRD) (>60) mL/min BUN/Creatinine Ratio (14-18) Glucose (83-115) mg/dL Lactic Acid 0.8 (0.4-2.0) mmol/L Calcium (8.5-10.1) mg/dL Total Bilirubin (0.2-1.0) mg/dL AST (15-37) U/L ALT (16-63) U/L Alkaline Phosphatase (46-116) U/L Troponin I (0.00-0.056) ng/mL NT-Pro-B Natriuret Pep 5773 H (0-450) pg/mL Total Protein (6.4-8.2) g/dl Albumin (3.4-5.0) g/dl Globulin gm/dL Albumin/Globulin Ratio (1-2) Meds: Medications Discontinued Medications Generic Name Dose Route Start Last Admin Trade Name Freq PRN Reason Stop Dose Admin Furosemide 40 mg 01/15/19 00:54 01/15/19 01:09 Lasix IVPUSH 01/15/19 00:55 40 mg NOW ONE Administration - Re-Assessments/Exams Free Text/Narrative Re-Assessment/Exam: 01/15/19 00:55 2-view chest radiograph reviewed. There is cardiomegaly and pulmonary vascular congestion, consistent with decompensated CHF. No pleural effusions. No focal infiltrate. No pneumothorax. Formal read per the Radiologist pending. The patient's ABG shows significant hypoxemia, however, this is not correlating with the patient's pulse oximeter, therefore this is likely a mixed venous sample. The patient's pro-BNP is elevated at 5773, however, the patient's BUN/Cr are elevated at 23/1.4. The patient's BUN/Cr was 27/1.4 on 11/26/2018. The patient's D-dimer is mildly elevated at 1.01, most likely due to his renal insufficiency. I do not clinically suspect a pulmonary embolus. Based on the patient's low-normal oxygen saturation and chest x-ray consistent with decompensated CHF, I have ordered 40 mg IV Lasix. 01/15/19 01:15 Test results discussed with the patient and his . As above, the patient appears to be suffering from decompensated CHF. I recommended that the patient be admitted to the hospital to make sure that his diuresis is successful, and the patient agreed. Case then discussed with Dr. Driscoll at 01:09. She agreed to admit the patient to telemetry. I will write bridge orders, that will include a basic metabolic panel and magnesium level to be drawn in the morning. Since the patient is on CPAP at home, for his HELADIO, I will also write for some CPAP tonight. Departure - Departure Time of Disposition: 01:16 Disposition: Admitted As Inpatient 67 Condition: Fair Clinical Impression: CHF exacerbation, Chronic renal insufficiency - Discharge Information *PRESCRIPTION DRUG MONITORING PROGRAM REVIEWED*: Not Applicable *COPY OF PRESCRIPTION DRUG MONITORING REPORT IN PATIENT MING: Not Applicable Referrals: Johan Khan MD [Primary Care Provider] - - My Orders Last 24 Hours: My Active Orders 01/14/19 23:47 EKG 12 Lead [EKG Documentation Completion] [RC] STAT 01/14/19 23:51 Chest 2V [CR] Stat CULTURE BLOOD [BC] Stat CULTURE BLOOD [BC] Stat Blood Culture x2 Reflex Set [OM.PC] Stat - Assessment/Plan Last 24 Hours: My Active Orders 01/14/19 23:47 EKG 12 Lead [EKG Documentation Completion] [RC] STAT 01/14/19 23:51 Chest 2V [CR] Stat CULTURE BLOOD [BC] Stat CULTURE BLOOD [BC] Stat Blood Culture x2 Reflex Set [OM.PC] Stat
[2019-01-15] MEDS: Furosemide 100 MG in Sodium Chloride 0.9% 90 ML IV SCH (03:59)
[2019-01-15] MEDS ORDERED: hydrALAZINE 20 MG/ML SDV IVPUSH PRN ×2 (06:45→09:50)
[2019-01-15] MEDS ORDERED: Metoprolol Tartrate 5 MG/5 ML SDV IVPUSH PRN (06:45)
--- NOTE | 2019-01-15 06:47 | PCM.HP ---
H&P History of Present Illness - General Date of Service: 01/15/19 Admit Problem/Dx: Admission Diagnosis/Problem Admission Diagnosis/Problem CHF, Congestive heart failure Source of Information: Patient, Old Records, Provider, RN, RN Notes Reviewed History Limitations: Reports: No Limitations - Related Data Allergies/Adverse Reactions: Allergies Allergy/AdvReac Type Severity Reaction Status Date / Time ampicillin Allergy Cannot Verified 01/15/19 03:19 Remember potassium Allergy Cannot Verified 01/15/19 03:19 Remember hydrocodone AdvReac Cannot Verified 01/15/19 03:58 Remember tramadol AdvReac Cannot Verified 01/15/19 03:58 Remember Home Medications: Home Meds Benazepril HCl [Lotensin] 20 mg PO DAILY 05/19/14 [History] amLODIPine Besylate [Amlodipine Besylate] 10 mg PO DAILY 05/19/14 [History] Tamsulosin [Flomax] 0.4 mg PO BEDTIME 02/26/15 [History] Allopurinol [Zyloprim] 300 mg PO DAILY 07/07/15 [History] Multivitamin [Multivitamins] 1 tab PO DAILY 08/30/15 [History] Pantoprazole Sodium [Protonix] 40 mg PO DAILY 30 Days suspdr.pkt 09/02/15 [Rx] Ezetimibe [Zetia] 10 mg PO DAILY 06/13/18 [History] Furosemide [Lasix] 40 mg PO DAILY 06/13/18 [History] Metoprolol Succinate 50 mg PO BID 06/13/18 [History] Pravastatin [Pravachol] 80 mg PO DAILY 06/13/18 [History] metFORMIN [Glucophage XR] 250 mg PO BID 06/13/18 [History] predniSONE [Prednisone] 20 mg PO BID PRN 06/13/18 [History] Aspirin [Ecotrin] 81 mg PO DAILY 11/26/18 [History] Nitroglycerin [Nitrostat] 0.4 mg SL ASDIRECTED PRN 11/26/18 [History] Vit C/Gonzales & Celery Ex/Grp E [Tart Gonzales] 1 cap PO DAILY 11/26/18 [History] Past Medical History HEENT History: Reports: Hard of Hearing, Impaired Vision Other HEENT History: Bilateral hearing aids, glasses Cardiovascular History: Reports: CAD, Heart Failure, High Cholesterol, Hypertension, [place] Respiratory History: Reports: Sleep Apnea Other Respiratory History: cpap used at home Gastrointestinal History: Reports: GERD, Hemorrhoids Genitourinary History: Reports: BPH, Chronic Renal Insuffiency, Renal Calculus Other Genitourinary History: Prostate cancer - seeds implanted. Musculoskeletal History: Reports: Gout, Osteoarthritis Neurological History: Reports: CVA Other Neuro History: no residual affect -improved with therapy Endocrine/Metabolic History: Reports: Diabetes, Type II Oncologic (Cancer) History: Reports: Prostate Other Oncologic History: seeds implanted - Infectious Disease History Infectious Disease History: Reports: None - Past Surgical History HEENT Surgical History: Reports: Cataract Surgery Cardiovascular Surgical History: Reports: Carotid Endarterectomy, Coronary Artery Stent GI Surgical History: Reports: Colonoscopy, Hernia, Inguinal Male Surgical History: Reports: Other (See Below) Other Male Surgeries/Procedures: prostate cancer - seeds Social & Family History - Tobacco Use Smoking Status *Q: Never Smoker Second Hand Smoke Exposure: No - Caffeine Use Caffeine Use: Reports: Coffee Other Caffeine Use: 3 cups/day - Recreational Drug Use Recreational Drug Use: No - Living Situation & Occupation Living situation: Reports: , with Spouse Occupation: Retired Exam - Vital Signs Vital Signs: Last Vital Signs Temp 97.9 F 01/14/19 23:25 Pulse 88 01/14/19 23:25 Resp 19 01/14/19 23:25 BP 130/74 01/14/19 23:25 Pulse Ox 90 L 01/14/19 23:25 Weight: 168 lb 11.68 oz - Patient Data Lab Results Last 24 hrs: Laboratory Results - last 24 hr 01/14/19 01/14/19 01/14/19 Range/Units 23:35 23:35 23:35 WBC 7.37 (4.23-9.07) K/mm3 RBC 4.51 L (4.63-6.08) M/mm3 Hgb 12.0 L (13.7-17.5) gm/L Hct 38.7 L (40.1-51.0) % MCV 85.8 (79.0-92.2) fl MCH 26.6 (25.7-32.2) pg MCHC 31.0 L (32.2-35.5) g/dl RDW Std Deviation 52.5 H (35.1-43.9) fL Plt Count 216 (163-337) K/mm3 MPV 10.7 (9.4-12.3) fl Neut % (Auto) (34.0-67.9) % Lymph % (Auto) (21.8-53.1) % Pitt % (Auto) (5.3-12.2) % Eos % (Auto) (0.8-7.0) Baso % (Auto) (0.1-1.2) % Neut # (Auto) (1.78-5.38) K/mm3 Lymph # (Auto) (1.32-3.57) K/mm3 Pitt # (Auto) (0.30-0.82) K/mm3 Eos # (Auto) (0.04-0.54) K/mm3 Baso # (Auto) (0.01-0.08) K/mm3 Neutrophils % (Manual) 68 H (40-60) % Band Neutrophils % 2 (0-10) % Lymphocytes % (Manual) 13 L (20-40) % Atypical Lymphs % 0 % Monocytes % (Manual) 11 H (2-10) % Eosinophils % (Manual) 6 (0.8-7.0) % Basophils % (Manual) 0 L (0.2-1.2) Platelet Estimate Adequate Plt Morphology Comment Normal Hypochromasia 1+ slight Anisocytosis 1+ slight Ovalocytes 1+ slight RBC Morph Comment Not Reportable D-Dimer, Quantitative 1.01 H (0.19-0.50) mg/L Puncture Site ABG pH (7.35-7.45) ABG pCO2 (35.0-45.0) mmHg ABG pO2 (80.0-100.0) mmHg ABG HCO3 (22.0-26.0) meq/L ABG O2 Saturation (96.0-97.0) % ABG Base Excess (-2-2.0) A-a Gradient mmHg O2 Delivery Device FiO2 (21.00-100.00) % Sodium 143 (136-145) mEq/L Potassium 3.7 (3.5-5.1) mEq/L Chloride 106 (98-107) mEq/L Carbon Dioxide 28 (21-32) mEq/L Anion Gap 12.7 (5-15) BUN 23 H (7-18) mg/dL Creatinine 1.4 H (0.7-1.3) mg/dL Est Cr Clr Drug Dosing 35.96 mL/min Estimated GFR (MDRD) 48 (>60) mL/min BUN/Creatinine Ratio 16.4 (14-18) Glucose 123 H (83-115) mg/dL Lactic Acid (0.4-2.0) mmol/L Calcium 9.3 (8.5-10.1) mg/dL Total Bilirubin 0.3 (0.2-1.0) mg/dL AST 19 (15-37) U/L ALT 19 (16-63) U/L Alkaline Phosphatase 79 (46-116) U/L Troponin I 0.032 (0.00-0.056) ng/mL NT-Pro-B Natriuret Pep (0-450) pg/mL Total Protein 6.8 (6.4-8.2) g/dl Albumin 3.1 L (3.4-5.0) g/dl Globulin 3.7 gm/dL Albumin/Globulin Ratio 0.8 L (1-2) Mycoplasma pneumon IgM (NEGATIVE) 01/14/19 01/14/19 01/15/19 Range/Units 23:35 23:35 00:10 WBC (4.23-9.07) K/mm3 RBC (4.63-6.08) M/mm3 Hgb (13.7-17.5) gm/L Hct (40.1-51.0) % MCV (79.0-92.2) fl MCH (25.7-32.2) pg MCHC (32.2-35.5) g/dl RDW Std Deviation (35.1-43.9) fL Plt Count (163-337) K/mm3 MPV (9.4-12.3) fl Neut % (Auto) (34.0-67.9) % Lymph % (Auto) (21.8-53.1) % Pitt % (Auto) (5.3-12.2) % Eos % (Auto) (0.8-7.0) Baso % (Auto) (0.1-1.2) % Neut # (Auto) (1.78-5.38) K/mm3 Lymph # (Auto) (1.32-3.57) K/mm3 Pitt # (Auto) (0.30-0.82) K/mm3 Eos # (Auto) (0.04-0.54) K/mm3 Baso # (Auto) (0.01-0.08) K/mm3 Neutrophils % (Manual) (40-60) % Band Neutrophils % (0-10) % Lymphocytes % (Manual) (20-40) % Atypical Lymphs % % Monocytes % (Manual) (2-10) % Eosinophils % (Manual) (0.8-7.0) % Basophils % (Manual) (0.2-1.2) Platelet Estimate Plt Morphology Comment Hypochromasia Anisocytosis Ovalocytes RBC Morph Comment D-Dimer, Quantitative (0.19-0.50) mg/L Puncture Site Rt radial ABG pH 7.42 (7.35-7.45) ABG pCO2 41.1 (35.0-45.0) mmHg ABG pO2 38.0 L* (80.0-100.0) mmHg ABG HCO3 26.1 H (22.0-26.0) meq/L ABG O2 Saturation 63.5 L (96.0-97.0) % ABG Base Excess 1.9 (-2-2.0) A-a Gradient 45 mmHg O2 Delivery Device Room air FiO2 21.00 (21.00-100.00) % Sodium (136-145) mEq/L Potassium (3.5-5.1) mEq/L Chloride (98-107) mEq/L Carbon Dioxide (21-32) mEq/L Anion Gap (5-15) BUN (7-18) mg/dL Creatinine (0.7-1.3) mg/dL Est Cr Clr Drug Dosing mL/min Estimated GFR (MDRD) (>60) mL/min BUN/Creatinine Ratio (14-18) Glucose (83-115) mg/dL Lactic Acid (0.4-2.0) mmol/L Calcium (8.5-10.1) mg/dL Total Bilirubin (0.2-1.0) mg/dL AST (15-37) U/L ALT (16-63) U/L Alkaline Phosphatase (46-116) U/L Troponin I (0.00-0.056) ng/mL NT-Pro-B Natriuret Pep 5773 H (0-450) pg/mL Total Protein (6.4-8.2) g/dl Albumin (3.4-5.0) g/dl Globulin gm/dL Albumin/Globulin Ratio (1-2) Mycoplasma pneumon IgM Negative (NEGATIVE) 01/15/19 01/15/19 Range/Units 00:10 06:15 WBC 6.64 (4.23-9.07) K/mm3 RBC 4.57 L (4.63-6.08) M/mm3 Hgb 11.9 L (13.7-17.5) gm/L Hct 39.2 L (40.1-51.0) % MCV 85.8 (79.0-92.2) fl MCH 26.0 (25.7-32.2) pg MCHC 30.4 L (32.2-35.5) g/dl RDW Std Deviation 52.8 H (35.1-43.9) fL Plt Count 220 (163-337) K/mm3 MPV 10.6 (9.4-12.3) fl Neut % (Auto) 66.7 (34.0-67.9) % Lymph % (Auto) 13.1 L (21.8-53.1) % Pitt % (Auto) 14.6 H (5.3-12.2) % Eos % (Auto) 5.1 (0.8-7.0) Baso % (Auto) 0.5 (0.1-1.2) % Neut # (Auto) 4.43 (1.78-5.38) K/mm3 Lymph # (Auto) 0.87 L (1.32-3.57) K/mm3 Pitt # (Auto) 0.97 H (0.30-0.82) K/mm3 Eos # (Auto) 0.34 (0.04-0.54) K/mm3 Baso # (Auto) 0.03 (0.01-0.08) K/mm3 Neutrophils % (Manual) (40-60) % Band Neutrophils % (0-10) % Lymphocytes % (Manual) (20-40) % Atypical Lymphs % % Monocytes % (Manual) (2-10) % Eosinophils % (Manual) (0.8-7.0) % Basophils % (Manual) (0.2-1.2) Platelet Estimate Plt Morphology Comment Hypochromasia Anisocytosis Ovalocytes RBC Morph Comment D-Dimer, Quantitative (0.19-0.50) mg/L Puncture Site ABG pH (7.35-7.45) ABG pCO2 (35.0-45.0) mmHg ABG pO2 (80.0-100.0) mmHg ABG HCO3 (22.0-26.0) meq/L ABG O2 Saturation (96.0-97.0) % ABG Base Excess (-2-2.0) A-a Gradient mmHg O2 Delivery Device FiO2 (21.00-100.00) % Sodium (136-145) mEq/L Potassium (3.5-5.1) mEq/L Chloride (98-107) mEq/L Carbon Dioxide (21-32) mEq/L Anion Gap (5-15) BUN (7-18) mg/dL Creatinine (0.7-1.3) mg/dL Est Cr Clr Drug Dosing mL/min Estimated GFR (MDRD) (>60) mL/min BUN/Creatinine Ratio (14-18) Glucose (83-115) mg/dL Lactic Acid 0.8 (0.4-2.0) mmol/L Calcium (8.5-10.1) mg/dL Total Bilirubin (0.2-1.0) mg/dL AST (15-37) U/L ALT (16-63) U/L Alkaline Phosphatase (46-116) U/L Troponin I (0.00-0.056) ng/mL NT-Pro-B Natriuret Pep (0-450) pg/mL Total Protein (6.4-8.2) g/dl Albumin (3.4-5.0) g/dl Globulin gm/dL Albumin/Globulin Ratio (1-2) Mycoplasma pneumon IgM (NEGATIVE) Result Diagrams: 01/15/19 06:15 01/14/19 23:35 [place] Results Last 24 hrs: Microbiology 01/15/19 04:04 Influenza Type A Antigen Screen - Final Nasal, Right NEGATIVE INFLUENZA A VIRUS AG Influenza Type B Antigen Screen - Final NEGATIVE INFLUENZA B VIRUS AG Orders Last 24hrs: Active Orders 24 hr Category Date Time Status Patient Status [ADT] Routine ADT 01/15/19 01:32 Active Accu Check [Blood Glucose Check, Bedside] [RC] Care 01/15/19 06:43 Ordered QIDACANDBED Cardiac Monitoring [RC] CONTINUOUS Care 01/15/19 06:40 Ordered Height and Weight [RC] DAILY Care 01/15/19 06:39 Ordered Intake and Output [RC] QSHIFT Care 01/15/19 06:40 Ordered Oxygen Therapy [RC] PRN Care 01/15/19 06:40 Ordered Pulse Oximetry [RC] PRN Care 01/15/19 06:40 Ordered Up With Assistance [RC] QSHIFT Care 01/15/19 02:20 Active VTE/DVT Education [RC] PER UNIT ROUTINE Care 01/15/19 06:40 Ordered Vital Signs [RC] Q6H Care 01/15/19 06:40 Ordered Consult to Case Management/Tie Inspector [CONS] Cons 01/15/19 06:39 Ordered Routine Consult to Diabetic Nurse Specialist [CONS] Routine Cons 01/15/19 03:25 Active Consult to Lift Builder Whole [CONS] Routine Cons 01/15/19 06:39 Ordered Consult to Spiritual Care [CONS] Routine Cons 01/15/19 06:39 Ordered OT Evaluation and Treatment [CONS] Routine Cons 01/15/19 06:39 Ordered PT Evaluation and Treatment [CONS] Routine Cons 01/15/19 06:39 Ordered 2 Gram Sodium Diet [DIET] Diet 01/15/19 Breakfast Active Fluid Restriction [DIET] Diet 01/15/19 Breakfast Active CXR [Chest 2V] [CR] Routine Exams 01/16/19 08:00 Ordered Chest 2V [CR] Stat Exams 01/14/19 23:51 Taken Echo Comp wo Cont [US] Routine Exams 01/15/19 05:30 Ordered BASIC METABOLIC PANEL,BMP [CHEM] AM Lab 01/16/19 05:11 Ordered BASIC METABOLIC PANEL,BMP [CHEM] AM Lab 01/17/19 05:11 Ordered BASIC METABOLIC PANEL,BMP [CHEM] AM Lab 01/18/19 05:11 Ordered BASIC METABOLIC PANEL,BMP [CHEM] AM Lab 01/19/19 05:11 Ordered BASIC METABOLIC PANEL,BMP [CHEM] Routine Lab 01/15/19 06:15 Received C-REACTIVE PROTEIN [CHEM] Routine Lab 01/15/19 06:15 Received CBC WITH AUTO DIFF [HEME] AM Lab 01/16/19 05:11 Ordered CBC WITH AUTO DIFF [HEME] AM Lab 01/17/19 05:11 Ordered CBC WITH AUTO DIFF [HEME] AM Lab 01/18/19 05:11 Ordered CBC WITH AUTO DIFF [HEME] AM Lab 01/19/19 05:11 Ordered CULTURE BLOOD [BC] Stat Lab 01/14/19 23:51 Received CULTURE BLOOD [BC] Stat Lab 01/14/19 23:51 Received LACTIC ACID [CHEM] Routine Lab 01/15/19 06:15 Received MAGNESIUM [CHEM] AM Lab 01/16/19 05:11 Ordered MAGNESIUM [CHEM] AM Lab 01/17/19 05:11 Ordered MAGNESIUM [CHEM] AM Lab 01/18/19 05:11 Ordered MAGNESIUM [CHEM] AM Lab 01/19/19 05:11 Ordered MAGNESIUM [CHEM] Routine Lab 01/15/19 06:15 Received PRO B-TYPE NATRIUR PEPT,BNPPRO [CHEM] DAILY Lab 01/16/19 05:11 Ordered PRO B-TYPE NATRIUR PEPT,BNPPRO [CHEM] DAILY Lab 01/17/19 05:11 Ordered PRO B-TYPE NATRIUR PEPT,BNPPRO [CHEM] DAILY Lab 01/18/19 05:11 Ordered PRO B-TYPE NATRIUR PEPT,BNPPRO [CHEM] DAILY Lab 01/19/19 05:11 Ordered PRO B-TYPE NATRIUR PEPT,BNPPRO [CHEM] Routine Lab 01/15/19 06:15 Received RESPIRATORY PANEL Routine Lab 01/15/19 06:45 Ordered TROPONIN I [CHEM] Routine Lab 01/15/19 06:15 Received Furosemide [Lasix] 100 mg Med 01/15/19 03:15 Active Sodium Chloride 0.9% [Normal Saline] 90 ml IV ASDIRECTED Insulin Lispro [HumaLOG] Med 01/15/19 07:00 Ordered See Protocol SUBCUT QIDACANDBED Metoprolol Tartrate [Lopressor] Med 01/15/19 06:45 Ordered 5 mg IVPUSH Q4H PRN hydrALAZINE [Apresoline] Med 01/15/19 06:45 Ordered 10 mg IVPUSH Q4H PRN Blood Culture x2 Reflex Set [OM.PC] Stat Oth 01/14/19 23:51 Ordered CPAP [RESPCARE] Routine Oth 01/15/19 06:16 Active Resuscitation Status Routine Resus Stat 01/15/19 02:17 Ordered Medication Orders Hydralazine HCl (Apresoline) 10 mg IVPUSH Q4H PRN PRN Reason: Hypertension Furosemide 100 mg/ Sodium (Chloride) 100 mls @ 4 mls/hr IV ASDIRECTED ABRAHAM; Protocol Last Admin: 01/15/19 03:59 Dose: 4 mg/hr, 4 mls/hr Insulin Human Lispro (Humalog) 0 unit SUBCUT QIDACANDBED ON LICENSE OF [facility]; Protocol Metoprolol Tartrate (Lopressor) 5 mg IVPUSH Q4H PRN PRN Reason: Tachycardia
[2019-01-15] MEDS: Insulin Lispro 100 UNIT/ML 10 ML VIAL SUBCUT SCH ×4 (07:48→21:03)
[2019-01-15] MEDS ORDERED: Nitroglycerin 0.4 MG Tab.SL SL PRN (07:56)
[2019-01-15] MEDS ORDERED: predniSONE 20 MG Tab PO PRN (07:56)
[2019-01-15] MEDS ORDERED: amLODIPine 10 MG Tab PO SCH (09:00)
[2019-01-15] MEDS ORDERED: Metoprolol Succinate 50 MG Tab.ER PO SCH (09:00)
[2019-01-15] MEDS: Allopurinol 100 MG Tab PO SCH (10:51)
[2019-01-15] MEDS: Multivitamins,Therapeutic Tab PO SCH (10:52)
[2019-01-15] MEDS: Aspirin 81 MG Tab.EC PO SCH (10:52)
[2019-01-15] MEDS: Enoxaparin 40 MG/0.4 ML Syringe SUBCUT SCH (10:52)
[2019-01-15] MEDS: Metoprolol Succinate 25 MG Tab.ER PO SCH ×2 (11:15→21:07)
--- NOTE | 2019-01-15 12:12 | PCM.HP ---
H&P History of Present Illness - General Date of Service: 01/15/19 Admit Problem/Dx: Admission Diagnosis/Problem Admission Diagnosis/Problem CHF, Congestive heart failure Source of Information: Patient, Family, Provider - History of Present Illness Initial Comments - Free Text/Narative: 88 year old male with PMH of CAD, PVD as well as CHF presents with progressive SOB. He described PND, orthopnea but denies pre-syncopal/syncopal episodes. There has also been no chest pain. Weight gain was unknown, he denies significant LE edema. NYHA functional class is unknown. He was last seen by his PCP less than 4 weeks ago. Cardiology provider addressed the need for a PPM /AICD in July 2018, however they are still undecided. The patient's code status is full code. Onset of Symptoms: Reports: Gradual Symptom Onset Date: 01/10/19 Duration of Symptoms: Reports: Day(s):, Getting Worse Location: Reports: Generalized Quality: Reports: Same as Previous Episode Severity: Moderate Improves with: Reports: Medication Worsens with: Reports: Movement Associated Symptoms: Reports: Cough, Malaise, Shortness of Breath, Weakness - Related Data Allergies/Adverse Reactions: Allergies Allergy/AdvReac Type Severity Reaction Status Date / Time ampicillin Allergy Cannot Verified 01/15/19 03:19 Remember potassium Allergy Cannot Verified 01/15/19 03:19 Remember hydrocodone AdvReac Cannot Verified 01/15/19 03:58 Remember tramadol AdvReac Cannot Verified 01/15/19 03:58 Remember Home Medications: Home Meds Benazepril HCl [Lotensin] 20 mg PO DAILY 05/19/14 [History] amLODIPine Besylate [Amlodipine Besylate] 10 mg PO DAILY 05/19/14 [History] Tamsulosin [Flomax] 0.4 mg PO BEDTIME 02/26/15 [History] Allopurinol [Zyloprim] 300 mg PO DAILY 07/07/15 [History] Multivitamin [Multivitamins] 1 tab PO DAILY 08/30/15 [History] Pantoprazole Sodium [Protonix] 40 mg PO DAILY 30 Days suspdr.pkt 09/02/15 [Rx] Ezetimibe [Zetia] 10 mg PO DAILY 06/13/18 [History] Furosemide [Lasix] 40 mg PO DAILY 06/13/18 [History] Metoprolol Succinate 50 mg PO BID 06/13/18 [History] Pravastatin [Pravachol] 80 mg PO DAILY 06/13/18 [History] metFORMIN [Glucophage XR] 250 mg PO BID 06/13/18 [History] predniSONE [Prednisone] 20 mg PO BID PRN 06/13/18 [History] Aspirin [Ecotrin] 81 mg PO DAILY 11/26/18 [History] Nitroglycerin [Nitrostat] 0.4 mg SL ASDIRECTED PRN 11/26/18 [History] Vit C/Gonzales & Celery Ex/Grp E [Tart Gonzales] 1 cap PO DAILY 11/26/18 [History] Past Medical History HEENT History: Reports: Hard of Hearing, Impaired Vision Other HEENT History: Bilateral hearing aids, glasses Cardiovascular History: Reports: CAD, Heart Failure, High Cholesterol, Hypertension, [place] Respiratory History: Reports: Sleep Apnea Other Respiratory History: cpap used at home Gastrointestinal History: Reports: GERD, Hemorrhoids Genitourinary History: Reports: BPH, Chronic Renal Insuffiency, Renal Calculus Other Genitourinary History: Prostate cancer - seeds implanted. Musculoskeletal History: Reports: Gout, Osteoarthritis Neurological History: Reports: CVA Other Neuro History: no residual affect -improved with therapy Endocrine/Metabolic History: Reports: Diabetes, Type II Oncologic (Cancer) History: Reports: Prostate Other Oncologic History: seeds implanted - Infectious Disease History Infectious Disease History: Reports: None - Past Surgical History HEENT Surgical History: Reports: Cataract Surgery Cardiovascular Surgical History: Reports: Carotid Endarterectomy, Coronary Artery Stent GI Surgical History: Reports: Colonoscopy, Hernia, Inguinal Male Surgical History: Reports: Other (See Below) Other Male Surgeries/Procedures: prostate cancer - seeds Social & Family History - Tobacco Use Smoking Status *Q: Never Smoker Second Hand Smoke Exposure: No - Caffeine Use Caffeine Use: Reports: Coffee Other Caffeine Use: 3 cups/day - Recreational Drug Use Recreational Drug Use: No - Living Situation & Occupation Living situation: Reports: , with Spouse Occupation: Retired H&P Review of Systems - Review of Systems: Review Of Systems: See Below General: Reports: Weakness, Fatigue, Weight Gain HEENT: Reports: No Symptoms Pulmonary: Reports: Shortness of Breath Cardiovascular: Reports: Palpitations, Lightheadedness Gastrointestinal: Reports: No Symptoms Genitourinary: Reports: No Symptoms Musculoskeletal: Reports: No Symptoms Skin: Reports: No Symptoms Psychiatric: Reports: No Symptoms Neurological: Reports: No Symptoms Hematologic/Lymphatic: Reports: No Symptoms Immunologic: Reports: No Symptoms Exam - Exam Exam: See Below - Vital Signs Vital Signs: Last Vital Signs Temp 36.4 C 01/15/19 05:18 Pulse 79 01/15/19 05:18 Resp 22 H 01/15/19 05:18 BP 130/84 01/15/19 05:18 Pulse Ox 93 L 01/15/19 05:18 Weight: 76.535 kg - Exam Quality Assessment: Supplemental Oxygen, DVT Prophylaxis General: Alert, Oriented, Cooperative, Mild Distress HEENT: EOMI, Nares Patent, Normal Nasal Septum, Pupils Equal, Pupils Reactive, PERRLA Neck: Trachea Midline Lungs: Normal Respiratory Effort, Decreased Breath Sounds, Wheezing Cardiovascular: Regular Rate GI/Abdominal Exam: Normal Bowel Sounds, Soft, Non-Tender, No Organomegaly, No Distention (Male) Exam: Deferred Rectal (Males) Exam: Deferred Back Exam: Normal Inspection Extremities: Non-Tender, Slow Capillary Refill Skin: Warm Neurological: Cranial Nerves Intact Neuro Extensive - Mental Status: Alert, Oriented x3 Neuro Extensive - Motor, Sensory, Reflexes: CN II-XII Intact Psychiatric: Alert, Normal Affect, Normal Mood - Patient Data Lab Results Last 24 hrs: Laboratory Results - last 24 hr 01/14/19 01/14/19 01/14/19 Range/Units 23:35 23:35 23:35 WBC 7.37 (4.23-9.07) K/mm3 RBC 4.51 L (4.63-6.08) M/mm3 Hgb 12.0 L (13.7-17.5) gm/L Hct 38.7 L (40.1-51.0) % MCV 85.8 (79.0-92.2) fl MCH 26.6 (25.7-32.2) pg MCHC 31.0 L (32.2-35.5) g/dl RDW Std Deviation 52.5 H (35.1-43.9) fL Plt Count 216 (163-337) K/mm3 MPV 10.7 (9.4-12.3) fl Neut % (Auto) (34.0-67.9) % Lymph % (Auto) (21.8-53.1) % Sevier % (Auto) (5.3-12.2) % Eos % (Auto) (0.8-7.0) Baso % (Auto) (0.1-1.2) % Neut # (Auto) (1.78-5.38) K/mm3 Lymph # (Auto) (1.32-3.57) K/mm3 [place] # (Auto) (0.30-0.82) K/mm3 Eos # (Auto) (0.04-0.54) K/mm3 Baso # (Auto) (0.01-0.08) K/mm3 Neutrophils % (Manual) 68 H (40-60) % Band Neutrophils % 2 (0-10) % Lymphocytes % (Manual) 13 L (20-40) % Atypical Lymphs % 0 % Monocytes % (Manual) 11 H (2-10) % Eosinophils % (Manual) 6 (0.8-7.0) % Basophils % (Manual) 0 L (0.2-1.2) Platelet Estimate Adequate Plt Morphology Comment Normal Hypochromasia 1+ slight Anisocytosis 1+ slight Ovalocytes 1+ slight RBC Morph Comment Not Reportable D-Dimer, Quantitative 1.01 H (0.19-0.50) mg/L Puncture Site ABG pH (7.35-7.45) ABG pCO2 (35.0-45.0) mmHg ABG pO2 (80.0-100.0) mmHg ABG HCO3 (22.0-26.0) meq/L ABG O2 Saturation (96.0-97.0) % ABG Base Excess (-2-2.0) A-a Gradient mmHg O2 Delivery Device FiO2 (21.00-100.00) % Sodium 143 (136-145) mEq/L Potassium 3.7 (3.5-5.1) mEq/L Chloride 106 (98-107) mEq/L Carbon Dioxide 28 (21-32) mEq/L Anion Gap 12.7 (5-15) BUN 23 H (7-18) mg/dL Creatinine 1.4 H (0.7-1.3) mg/dL Est Cr Clr Drug Dosing 35.96 mL/min Estimated GFR (MDRD) 48 (>60) mL/min BUN/Creatinine Ratio 16.4 (14-18) Glucose 123 H (83-115) mg/dL POC Glucose (83-110) mg/dL Lactic Acid (0.4-2.0) mmol/L Calcium 9.3 (8.5-10.1) mg/dL Magnesium (1.8-2.4) mg/dl Total Bilirubin 0.3 (0.2-1.0) mg/dL AST 19 (15-37) U/L ALT 19 (16-63) U/L Alkaline Phosphatase 79 (46-116) U/L Troponin I 0.032 (0.00-0.056) ng/mL C-Reactive Protein (<1.0) mg/dL NT-Pro-B Natriuret Pep (0-450) pg/mL Total Protein 6.8 (6.4-8.2) g/dl Albumin 3.1 L (3.4-5.0) g/dl Globulin 3.7 gm/dL Albumin/Globulin Ratio 0.8 L (1-2) Mycoplasma pneumon IgM (NEGATIVE) 01/14/19 01/14/19 01/15/19 Range/Units 23:35 23:35 00:10 WBC (4.23-9.07) K/mm3 RBC (4.63-6.08) M/mm3 Hgb (13.7-17.5) gm/L Hct (40.1-51.0) % MCV (79.0-92.2) fl MCH (25.7-32.2) pg MCHC (32.2-35.5) g/dl RDW Std Deviation (35.1-43.9) fL Plt Count (163-337) K/mm3 MPV (9.4-12.3) fl Neut % (Auto) (34.0-67.9) % Lymph % (Auto) (21.8-53.1) % Sevier % (Auto) (5.3-12.2) % Eos % (Auto) (0.8-7.0) Baso % (Auto) (0.1-1.2) % Neut # (Auto) (1.78-5.38) K/mm3 Lymph # (Auto) (1.32-3.57) K/mm3 Sevier # (Auto) (0.30-0.82) K/mm3 Eos # (Auto) (0.04-0.54) K/mm3 Baso # (Auto) (0.01-0.08) K/mm3 Neutrophils % (Manual) (40-60) % Band Neutrophils % (0-10) % Lymphocytes % (Manual) (20-40) % Atypical Lymphs % % Monocytes % (Manual) (2-10) % Eosinophils % (Manual) (0.8-7.0) % Basophils % (Manual) (0.2-1.2) Platelet Estimate Plt Morphology Comment Hypochromasia Anisocytosis Ovalocytes RBC Morph Comment D-Dimer, Quantitative (0.19-0.50) mg/L Puncture Site Rt radial ABG pH 7.42 (7.35-7.45) ABG pCO2 41.1 (35.0-45.0) mmHg ABG pO2 38.0 L* (80.0-100.0) mmHg ABG HCO3 26.1 H (22.0-26.0) meq/L ABG O2 Saturation 63.5 L (96.0-97.0) % ABG Base Excess 1.9 (-2-2.0) A-a Gradient 45 mmHg O2 Delivery Device Room air FiO2 21.00 (21.00-100.00) % Sodium (136-145) mEq/L Potassium (3.5-5.1) mEq/L Chloride (98-107) mEq/L Carbon Dioxide (21-32) mEq/L Anion Gap (5-15) BUN (7-18) mg/dL Creatinine (0.7-1.3) mg/dL Est Cr Clr Drug Dosing mL/min Estimated GFR (MDRD) (>60) mL/min BUN/Creatinine Ratio (14-18) Glucose (83-115) mg/dL POC Glucose (83-110) mg/dL Lactic Acid (0.4-2.0) mmol/L Calcium (8.5-10.1) mg/dL Magnesium (1.8-2.4) mg/dl Total Bilirubin (0.2-1.0) mg/dL AST (15-37) U/L ALT (16-63) U/L Alkaline Phosphatase (46-116) U/L Troponin I (0.00-0.056) ng/mL C-Reactive Protein (<1.0) mg/dL NT-Pro-B Natriuret Pep 5773 H (0-450) pg/mL Total Protein (6.4-8.2) g/dl Albumin (3.4-5.0) g/dl Globulin gm/dL Albumin/Globulin Ratio (1-2) Mycoplasma pneumon IgM Negative (NEGATIVE) 01/15/19 01/15/19 01/15/19 Range/Units 00:10 06:15 06:15 WBC 6.64 (4.23-9.07) K/mm3 RBC 4.57 L (4.63-6.08) M/mm3 Hgb 11.9 L (13.7-17.5) gm/L Hct 39.2 L (40.1-51.0) % MCV 85.8 (79.0-92.2) fl MCH 26.0 (25.7-32.2) pg MCHC 30.4 L (32.2-35.5) g/dl RDW Std Deviation 52.8 H (35.1-43.9) fL Plt Count 220 (163-337) K/mm3 MPV 10.6 (9.4-12.3) fl Neut % (Auto) 66.7 (34.0-67.9) % Lymph % (Auto) 13.1 L (21.8-53.1) % Sevier % (Auto) 14.6 H (5.3-12.2) % Eos % (Auto) 5.1 (0.8-7.0) Baso % (Auto) 0.5 (0.1-1.2) % Neut # (Auto) 4.43 (1.78-5.38) K/mm3 Lymph # (Auto) 0.87 L (1.32-3.57) K/mm3 Sevier # (Auto) 0.97 H (0.30-0.82) K/mm3 Eos # (Auto) 0.34 (0.04-0.54) K/mm3 Baso # (Auto) 0.03 (0.01-0.08) K/mm3 Neutrophils % (Manual) (40-60) % Band Neutrophils % (0-10) % Lymphocytes % (Manual) (20-40) % Atypical Lymphs % % Monocytes % (Manual) (2-10) % Eosinophils % (Manual) (0.8-7.0) % Basophils % (Manual) (0.2-1.2) Platelet Estimate Plt Morphology Comment Hypochromasia Anisocytosis Ovalocytes RBC Morph Comment D-Dimer, Quantitative (0.19-0.50) mg/L Puncture Site ABG pH (7.35-7.45) ABG pCO2 (35.0-45.0) mmHg ABG pO2 (80.0-100.0) mmHg ABG HCO3 (22.0-26.0) meq/L ABG O2 Saturation (96.0-97.0) % ABG Base Excess (-2-2.0) A-a Gradient mmHg O2 Delivery Device FiO2 (21.00-100.00) % Sodium 143 (136-145) mEq/L Potassium 3.3 L (3.5-5.1) mEq/L Chloride 105 (98-107) mEq/L Carbon Dioxide 27 (21-32) mEq/L Anion Gap 14.3 (5-15) BUN 23 H (7-18) mg/dL Creatinine 1.3 (0.7-1.3) mg/dL Est Cr Clr Drug Dosing 38.73 mL/min Estimated GFR (MDRD) 52 (>60) mL/min BUN/Creatinine Ratio 17.7 (14-18) Glucose 104 (83-115) mg/dL POC Glucose (83-110) mg/dL Lactic Acid 0.8 (0.4-2.0) mmol/L Calcium 8.9 (8.5-10.1) mg/dL Magnesium 2.0 (1.8-2.4) mg/dl Total Bilirubin (0.2-1.0) mg/dL AST (15-37) U/L ALT (16-63) U/L Alkaline Phosphatase (46-116) U/L Troponin I 0.029 (0.00-0.056) ng/mL C-Reactive Protein 1.9 H* (<1.0) mg/dL NT-Pro-B Natriuret Pep (0-450) pg/mL Total Protein (6.4-8.2) g/dl Albumin (3.4-5.0) g/dl Globulin gm/dL Albumin/Globulin Ratio (1-2) Mycoplasma pneumon IgM (NEGATIVE) 01/15/19 01/15/19 01/15/19 Range/Units 06:15 06:15 07:43 WBC (4.23-9.07) K/mm3 RBC (4.63-6.08) M/mm3 Hgb (13.7-17.5) gm/L Hct (40.1-51.0) % MCV (79.0-92.2) fl MCH (25.7-32.2) pg MCHC (32.2-35.5) g/dl RDW Std Deviation (35.1-43.9) fL Plt Count (163-337) K/mm3 MPV (9.4-12.3) fl Neut % (Auto) (34.0-67.9) % Lymph % (Auto) (21.8-53.1) % Sevier % (Auto) (5.3-12.2) % Eos % (Auto) (0.8-7.0) Baso % (Auto) (0.1-1.2) % Neut # (Auto) (1.78-5.38) K/mm3 Lymph # (Auto) (1.32-3.57) K/mm3 Sevier # (Auto) (0.30-0.82) K/mm3 Eos # (Auto) (0.04-0.54) K/mm3 Baso # (Auto) (0.01-0.08) K/mm3 Neutrophils % (Manual) (40-60) % Band Neutrophils % (0-10) % Lymphocytes % (Manual) (20-40) % Atypical Lymphs % % Monocytes % (Manual) (2-10) % Eosinophils % (Manual) (0.8-7.0) % Basophils % (Manual) (0.2-1.2) Platelet Estimate Plt Morphology Comment Hypochromasia Anisocytosis Ovalocytes RBC Morph Comment D-Dimer, Quantitative (0.19-0.50) mg/L Puncture Site ABG pH (7.35-7.45) ABG pCO2 (35.0-45.0) mmHg ABG pO2 (80.0-100.0) mmHg ABG HCO3 (22.0-26.0) meq/L ABG O2 Saturation (96.0-97.0) % ABG Base Excess (-2-2.0) A-a Gradient mmHg O2 Delivery Device FiO2 (21.00-100.00) % Sodium (136-145) mEq/L Potassium (3.5-5.1) mEq/L Chloride (98-107) mEq/L Carbon Dioxide (21-32) mEq/L Anion Gap (5-15) BUN (7-18) mg/dL Creatinine (0.7-1.3) mg/dL Est Cr Clr Drug Dosing mL/min Estimated GFR (MDRD) (>60) mL/min BUN/Creatinine Ratio (14-18) Glucose (83-115) mg/dL POC Glucose 112 H (83-110) mg/dL Lactic Acid 0.8 (0.4-2.0) mmol/L Calcium (8.5-10.1) mg/dL Magnesium (1.8-2.4) mg/dl Total Bilirubin (0.2-1.0) mg/dL AST (15-37) U/L ALT (16-63) U/L Alkaline Phosphatase (46-116) U/L Troponin I (0.00-0.056) ng/mL C-Reactive Protein (<1.0) mg/dL NT-Pro-B Natriuret Pep 6079 H (0-450) pg/mL Total Protein (6.4-8.2) g/dl Albumin (3.4-5.0) g/dl Globulin gm/dL Albumin/Globulin Ratio (1-2) Mycoplasma pneumon IgM (NEGATIVE) 01/15/19 Range/Units 10:50 WBC (4.23-9.07) K/mm3 RBC (4.63-6.08) M/mm3 Hgb (13.7-17.5) gm/L Hct (40.1-51.0) % MCV (79.0-92.2) fl MCH (25.7-32.2) pg MCHC (32.2-35.5) g/dl RDW Std Deviation (35.1-43.9) fL Plt Count (163-337) K/mm3 MPV (9.4-12.3) fl Neut % (Auto) (34.0-67.9) % Lymph % (Auto) (21.8-53.1) % Sevier % (Auto) (5.3-12.2) % Eos % (Auto) (0.8-7.0) Baso % (Auto) (0.1-1.2) % Neut # (Auto) (1.78-5.38) K/mm3 Lymph # (Auto) (1.32-3.57) K/mm3 Sevier # (Auto) (0.30-0.82) K/mm3 Eos # (Auto) (0.04-0.54) K/mm3 Baso # (Auto) (0.01-0.08) K/mm3 Neutrophils % (Manual) (40-60) % Band Neutrophils % (0-10) % Lymphocytes % (Manual) (20-40) % Atypical Lymphs % % Monocytes % (Manual) (2-10) % Eosinophils % (Manual) (0.8-7.0) % Basophils % (Manual) (0.2-1.2) Platelet Estimate Plt Morphology Comment Hypochromasia Anisocytosis Ovalocytes RBC Morph Comment D-Dimer, Quantitative (0.19-0.50) mg/L Puncture Site ABG pH (7.35-7.45) ABG pCO2 (35.0-45.0) mmHg ABG pO2 (80.0-100.0) mmHg ABG HCO3 (22.0-26.0) meq/L ABG O2 Saturation (96.0-97.0) % ABG Base Excess (-2-2.0) A-a Gradient mmHg O2 Delivery Device FiO2 (21.00-100.00) % Sodium (136-145) mEq/L Potassium (3.5-5.1) mEq/L Chloride (98-107) mEq/L Carbon Dioxide (21-32) mEq/L Anion Gap (5-15) BUN (7-18) mg/dL Creatinine (0.7-1.3) mg/dL Est Cr Clr Drug Dosing mL/min Estimated GFR (MDRD) (>60) mL/min BUN/Creatinine Ratio (14-18) Glucose (83-115) mg/dL POC Glucose 112 H (83-110) mg/dL Lactic Acid (0.4-2.0) mmol/L Calcium (8.5-10.1) mg/dL Magnesium (1.8-2.4) mg/dl Total Bilirubin (0.2-1.0) mg/dL AST (15-37) U/L ALT (16-63) U/L Alkaline Phosphatase (46-116) U/L Troponin I (0.00-0.056) ng/mL C-Reactive Protein (<1.0) mg/dL NT-Pro-B Natriuret Pep (0-450) pg/mL Total Protein (6.4-8.2) g/dl Albumin (3.4-5.0) g/dl Globulin gm/dL Albumin/Globulin Ratio (1-2) Mycoplasma pneumon IgM (NEGATIVE) Result Diagrams: 01/15/19 06:15 01/15/19 06:15 [place] Results Last 24 hrs: Microbiology 01/15/19 04:04 Influenza Type A Antigen Screen - Final Nasal, Right NEGATIVE INFLUENZA A VIRUS AG Influenza Type B Antigen Screen - Final NEGATIVE INFLUENZA B VIRUS AG Problem List Initiated/Reviewed/Updated: Yes Orders Last 24hrs: Active Orders 24 hr Category Date Time Status Patient Status [ADT] Routine ADT 01/15/19 01:32 Active Accu Check [Blood Glucose Check, Bedside] [RC] Care 01/15/19 06:43 Active QIDACANDBED Cardiac Monitoring [RC] CONTINUOUS Care 01/15/19 06:40 Active Height and Weight [RC] DAILY Care 01/15/19 06:39 Active Intake and Output [RC] QSHIFT Care 01/15/19 06:40 Active Oxygen Therapy [RC] PRN Care 01/15/19 06:40 Active Pulse Oximetry [RC] PRN Care 01/15/19 06:40 Active Up With Assistance [RC] QSHIFT Care 01/15/19 02:20 Active VTE/DVT Education [RC] BID Care 01/15/19 06:40 Active Vital Signs [RC] Q4HR Care 01/15/19 06:40 Active Consult to Case Management/High Lighter [CONS] Cons 01/15/19 06:39 Active Routine Consult to Diabetic Nurse Specialist [CONS] Routine Cons 01/15/19 03:25 Active Consult to Asphalt Tamper [CONS] Routine Cons 01/15/19 06:39 Active Consult to Spiritual Care [CONS] Routine Cons 01/15/19 06:39 Active OT Evaluation and Treatment [CONS] Routine Cons 01/15/19 06:39 Active PT Evaluation and Treatment [CONS] Routine Cons 01/15/19 06:39 Active 2 Gram Sodium Diet [DIET] Diet 01/15/19 Breakfast Active Fluid Restriction [DIET] Diet 01/15/19 Breakfast Active CXR [Chest 2V] [CR] Routine Exams 01/16/19 08:00 Ordered Chest 2V [CR] Stat Exams 01/14/19 23:51 Taken BASIC METABOLIC PANEL,BMP [CHEM] AM Lab 01/16/19 05:11 Ordered BASIC METABOLIC PANEL,BMP [CHEM] AM Lab 01/17/19 05:11 Ordered BASIC METABOLIC PANEL,BMP [CHEM] AM Lab 01/18/19 05:11 Ordered BASIC METABOLIC PANEL,BMP [CHEM] AM Lab 01/19/19 05:11 Ordered CBC WITH AUTO DIFF [HEME] AM Lab 01/16/19 05:11 Ordered CBC WITH AUTO DIFF [HEME] AM Lab 01/17/19 05:11 Ordered CBC WITH AUTO DIFF [HEME] AM Lab 01/18/19 05:11 Ordered CBC WITH AUTO DIFF [HEME] AM Lab 01/19/19 05:11 Ordered CULTURE BLOOD [BC] Stat Lab 01/14/19 23:51 Received CULTURE BLOOD [BC] Stat Lab 01/14/19 23:51 Received MAGNESIUM [CHEM] AM Lab 01/16/19 05:11 Ordered MAGNESIUM [CHEM] AM Lab 01/17/19 05:11 Ordered MAGNESIUM [CHEM] AM Lab 01/18/19 05:11 Ordered MAGNESIUM [CHEM] AM Lab 01/19/19 05:11 Ordered PRO B-TYPE NATRIUR PEPT,BNPPRO [CHEM] DAILY Lab 01/16/19 05:11 Ordered PRO B-TYPE NATRIUR PEPT,BNPPRO [CHEM] DAILY Lab 01/17/19 05:11 Ordered PRO B-TYPE NATRIUR PEPT,BNPPRO [CHEM] DAILY Lab 01/18/19 05:11 Ordered PRO B-TYPE NATRIUR PEPT,BNPPRO [CHEM] DAILY Lab 01/19/19 05:11 Ordered RESPIRATORY PANEL Routine Lab 01/15/19 11:10 Received Allopurinol [Zyloprim] Med 01/15/19 09:00 Active 300 mg PO DAILY Aspirin [Halfprin] Med 01/15/19 09:00 Active 81 mg PO DAILY Enoxaparin [Lovenox] Med 01/15/19 09:00 Active 40 mg SUBCUT DAILY Furosemide [Lasix] 100 mg Med 01/15/19 03:15 Active Sodium Chloride 0.9% [Normal Saline] 90 ml IV ASDIRECTED Insulin Lispro [HumaLOG] Med 01/15/19 07:00 Active See Protocol SUBCUT QIDACANDBED Metoprolol Succinate [Toprol XL] Med 01/15/19 11:00 Active 25 mg PO BID Metoprolol Tartrate [Lopressor] Med 01/15/19 06:45 Active 5 mg IVPUSH Q4H PRN Multivitamins,Therapeutic [Thera] Med 01/15/19 09:00 Active 1 each PO DAILY Nitroglycerin [Nitrostat] Med 01/15/19 07:56 Active 0.4 mg SL ASDIRECTED PRN Tamsulosin [Flomax] Med 01/15/19 21:00 Active 0.4 mg PO BEDTIME hydrALAZINE [Apresoline] Med 01/15/19 09:50 Active 20 mg IVPUSH Q6H PRN Blood Culture x2 Reflex Set [OM.PC] Stat Oth 01/14/19 23:51 Ordered CPAP [RESPCARE] Routine Oth 01/15/19 06:16 Active Resuscitation Status Routine Resus Stat 01/15/19 02:17 Ordered Medication Orders Allopurinol (Zyloprim) 300 mg PO DAILY [facility] Last Admin: 01/15/19 10:51 Dose: 300 mg Aspirin (Halfprin) 81 mg PO DAILY [facility] Last Admin: 01/15/19 10:52 Dose: 81 mg Enoxaparin Sodium (Lovenox) 40 mg SUBCUT DAILY [facility] Last Admin: 01/15/19 10:52 Dose: 40 mg Hydralazine HCl (Apresoline) 20 mg IVPUSH Q6H PRN PRN Reason: Hypertension Furosemide 100 mg/ Sodium (Chloride) 100 mls @ 4 mls/hr IV ASDIRECTED [facility]; Protocol Last Admin: 01/15/19 03:59 Dose: 4 mg/hr, 4 mls/hr Insulin Human Lispro (Humalog) 0 unit SUBCUT QIDACANDBED [facility]; Protocol Last Admin: 01/15/19 10:52 Dose: Not Given Admin: 01/15/19 07:48 Dose: Not Given Metoprolol Succinate (Toprol Xl) 25 mg PO BID [facility] Metoprolol Tartrate (Lopressor) 5 mg IVPUSH Q4H PRN PRN Reason: Tachycardia Multivitamins (Thera) 1 each PO DAILY [facility] Last Admin: 01/15/19 10:52 Dose: 1 each Nitroglycerin (Nitrostat) 0.4 mg SL ASDIRECTED PRN PRN Reason: Chest Pain Tamsulosin HCl (Flomax) 0.4 mg PO BEDTIME [facility] Assessment/Plan Comment:: Impression: Acute decompensated CHF Hx of CAD/FL with PCI Cardiomyopathy, LVEF currently TBD. 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
--- NOTE | 2019-01-15 12:13 | CR ---
Chest: Two views of the chest were obtained. Comparison: Prior chest x-ray of 11/26/18. Increasing lung markings noted from prior study. Heart size is normal. Tortuous thoracic aorta is seen. Surgical clips are seen within the right side of the neck. Impression: 1. Increasing lung markings from prior study either due to bronchitis or pulmonary vascular congestion. 2. Heart does not appear enlarged. Diagnostic code #3
[2019-01-15] MEDS: Spironolactone 25 MG Tab PO SCH (14:06)
[2019-01-15] MEDS ORDERED: Potassium Chloride 10 MEQ in Premix Bag 1 BAG IV SCH (14:15)
[2019-01-15] MEDS ORDERED: Potassium Chloride 20 MEQ Tab.ER PO ONE (14:45)
[2019-01-15] MEDS ORDERED: Ondansetron 4 MG/2 ML SDV IVPUSH PRN (16:26)
[2019-01-15] MEDS: Tamsulosin 0.4 MG Cap.ER PO SCH (21:08)
[2019-01-16] MEDS: Furosemide 100 MG in Sodium Chloride 0.9% 90 ML IV SCH (02:37)
[2019-01-16] MEDS: Aspirin 81 MG Tab.EC PO SCH (09:43)
[2019-01-16] MEDS: Spironolactone 25 MG Tab PO SCH (09:43)
[2019-01-16] MEDS: Insulin Lispro 100 UNIT/ML 10 ML VIAL SUBCUT SCH ×4 (09:43→21:35)
[2019-01-16] MEDS: Multivitamins,Therapeutic Tab PO SCH (09:43)
[2019-01-16] MEDS: Metoprolol Succinate 25 MG Tab.ER PO SCH ×2 (09:44→21:34)
[2019-01-16] MEDS: Allopurinol 100 MG Tab PO SCH (09:45)
[2019-01-16] MEDS: Enoxaparin 40 MG/0.4 ML Syringe SUBCUT SCH (09:46)
--- NOTE | 2019-01-16 09:46 | CR ---
Chest: 2 views of the chest were obtained. Comparison: Prior chest x-ray of 01/15/19. Parenchymal density noted within the right lung base possibly due to lobulated hemidiaphragm. Areas of increased density are noted within the left lung base possibly due small pleural effusion as well as atelectasis. Central lung markings are increased which appear slightly improved from prior exam. Heart size at the upper limits of normal. Upper mediastinum is normal. Impression: 1. Lung markings improved from previous chest x-ray but remain mildly increased. 2. Probable small left-sided pleural effusion and mild left basilar atelectasis. 3. Lobulated right hemidiaphragm being more accentuated than seen on prior study due to increased lordotic positioning on current study. Diagnostic code #3
--- NOTE | 2019-01-16 12:44 | PCM.PN ---
- General Info Date of Service: 01/16/19 Functional Status: Reports: Pain Controlled, Tolerating Diet, Ambulating, Urinating - Review of Systems General: Reports: Weakness HEENT: Reports: No Symptoms Pulmonary: Reports: Shortness of Breath Cardiovascular: Reports: No Symptoms Gastrointestinal: Reports: No Symptoms Genitourinary: Reports: No Symptoms Musculoskeletal: Reports: No Symptoms Skin: Reports: No Symptoms Neurological: Reports: No Symptoms Psychiatric: Reports: No Symptoms - Patient Data Vitals - Most Recent: Last Vital Signs Temp 36.2 C 01/16/19 07:40 Pulse 85 01/16/19 09:44 Resp 16 01/16/19 07:40 BP 116/64 01/16/19 09:44 Pulse Ox 94 L 01/16/19 07:40 Weight - Most Recent: 74.661 kg I&O - Last 24 Hours: Intake & Output 01/15/19 01/16/19 01/16/19 22:59 06:59 14:59 Intake Total 410 452 340 Output Total 823 7515 Balance -415 -7362 340 Lab Results Last 24 Hours: Laboratory Results - last 24 hr 01/15/19 01/15/19 01/15/19 Range/Units 11:10 16:30 20:53 WBC (4.23-9.07) K/mm3 RBC (4.63-6.08) M/mm3 Hgb (13.7-17.5) gm/L Hct (40.1-51.0) % MCV (79.0-92.2) fl MCH (25.7-32.2) pg MCHC (32.2-35.5) g/dl RDW Std Deviation (35.1-43.9) fL Plt Count (163-337) K/mm3 MPV (9.4-12.3) fl Neut % (Auto) (34.0-67.9) % Lymph % (Auto) (21.8-53.1) % [place] % (Auto) (5.3-12.2) % Eos % (Auto) (0.8-7.0) Baso % (Auto) (0.1-1.2) % Neut # (Auto) (1.78-5.38) K/mm3 Lymph # (Auto) (1.32-3.57) K/mm3 [place] # (Auto) (0.30-0.82) K/mm3 Eos # (Auto) (0.04-0.54) K/mm3 Baso # (Auto) (0.01-0.08) K/mm3 Manual Slide Review Sodium (136-145) mEq/L Potassium (3.5-5.1) mEq/L Chloride (98-107) mEq/L Carbon Dioxide (21-32) mEq/L Anion Gap (5-15) BUN (7-18) mg/dL Creatinine (0.7-1.3) mg/dL Est Cr Clr Drug Dosing mL/min Estimated GFR (MDRD) (>60) mL/min BUN/Creatinine Ratio (14-18) Glucose (83-115) mg/dL POC Glucose 156 H 108 (83-110) mg/dL Calcium (8.5-10.1) mg/dL Magnesium (1.8-2.4) mg/dl NT-Pro-B Natriuret Pep (0-450) pg/mL Adenovirus (PCR) Not detected (Not Detected) B. pertussis DNA (PCR) Not detected (Not Detected) B.parapertussis DNA PCR Not detected (Not Detected) C. pneumoniae DNA (PCR) Not detected (Not Detected) Coronavirus (PCR) Not detected (Not Detected) Human Metapneumovir PCR Not detected (Not Detected) Influenza A (RT-PCR) Not detected (Not Detected) Influenza B (RT-PCR) Not detected (Not Detected) M. pneumoniae (PCR) Not detected (Not Detected) Parainfluen 1,2,3,4 PCR Not detected (Not Detected) RSV (PCR) Not detected (Not Detected) Entero/Rhino (PCR) Not detected (Not Detected) 01/16/19 01/16/19 01/16/19 Range/Units 06:24 06:24 06:24 WBC 5.31 (4.23-9.07) K/mm3 RBC 4.16 L (4.63-6.08) M/mm3 Hgb 11.0 L (13.7-17.5) gm/L Hct 35.9 L (40.1-51.0) % MCV 86.3 (79.0-92.2) fl MCH 26.4 (25.7-32.2) pg MCHC 30.6 L (32.2-35.5) g/dl RDW Std Deviation 52.5 H (35.1-43.9) fL Plt Count 204 (163-337) K/mm3 MPV 10.8 (9.4-12.3) fl Neut % (Auto) 62.3 (34.0-67.9) % Lymph % (Auto) 13.2 L (21.8-53.1) % [place] % (Auto) 17.1 H (5.3-12.2) % Eos % (Auto) 7.0 (0.8-7.0) Baso % (Auto) 0.4 (0.1-1.2) % Neut # (Auto) 3.31 (1.78-5.38) K/mm3 Lymph # (Auto) 0.70 L (1.32-3.57) K/mm3 [place] # (Auto) 0.91 H (0.30-0.82) K/mm3 Eos # (Auto) 0.37 (0.04-0.54) K/mm3 Baso # (Auto) 0.02 (0.01-0.08) K/mm3 Manual Slide Review Abnormal smear Sodium 144 (136-145) mEq/L Potassium 3.6 (3.5-5.1) mEq/L Chloride 106 (98-107) mEq/L Carbon Dioxide 30 (21-32) mEq/L Anion Gap 11.6 (5-15) BUN 24 H (7-18) mg/dL Creatinine 1.3 (0.7-1.3) mg/dL Est Cr Clr Drug Dosing 38.87 mL/min Estimated GFR (MDRD) 52 (>60) mL/min BUN/Creatinine Ratio 18.5 H (14-18) Glucose 98 (83-115) mg/dL POC Glucose (83-110) mg/dL Calcium 8.3 L (8.5-10.1) mg/dL Magnesium 2.0 (1.8-2.4) mg/dl NT-Pro-B Natriuret Pep 5252 H (0-450) pg/mL Adenovirus (PCR) (Not Detected) B. pertussis DNA (PCR) (Not Detected) B.parapertussis DNA PCR (Not Detected) C. pneumoniae DNA (PCR) (Not Detected) Coronavirus (PCR) (Not Detected) Human Metapneumovir PCR (Not Detected) Influenza A (RT-PCR) (Not Detected) Influenza B (RT-PCR) (Not Detected) M. pneumoniae (PCR) (Not Detected) Parainfluen 1,2,3,4 PCR (Not Detected) RSV (PCR) (Not Detected) Entero/Rhino (PCR) (Not Detected) 01/16/19 01/16/19 Range/Units 06:29 11:34 WBC (4.23-9.07) K/mm3 RBC (4.63-6.08) M/mm3 Hgb (13.7-17.5) gm/L Hct (40.1-51.0) % MCV (79.0-92.2) fl MCH (25.7-32.2) pg MCHC (32.2-35.5) g/dl RDW Std Deviation (35.1-43.9) fL Plt Count (163-337) K/mm3 MPV (9.4-12.3) fl Neut % (Auto) (34.0-67.9) % Lymph % (Auto) (21.8-53.1) % [place] % (Auto) (5.3-12.2) % Eos % (Auto) (0.8-7.0) Baso % (Auto) (0.1-1.2) % Neut # (Auto) (1.78-5.38) K/mm3 Lymph # (Auto) (1.32-3.57) K/mm3 [place] # (Auto) (0.30-0.82) K/mm3 Eos # (Auto) (0.04-0.54) K/mm3 Baso # (Auto) (0.01-0.08) K/mm3 Manual Slide Review Sodium (136-145) mEq/L Potassium (3.5-5.1) mEq/L Chloride (98-107) mEq/L Carbon Dioxide (21-32) mEq/L Anion Gap (5-15) BUN (7-18) mg/dL Creatinine (0.7-1.3) mg/dL Est Cr Clr Drug Dosing mL/min Estimated GFR (MDRD) (>60) mL/min BUN/Creatinine Ratio (14-18) Glucose (83-115) mg/dL POC Glucose 108 116 H (83-110) mg/dL Calcium (8.5-10.1) mg/dL Magnesium (1.8-2.4) mg/dl NT-Pro-B Natriuret Pep (0-450) pg/mL Adenovirus (PCR) (Not Detected) B. pertussis DNA (PCR) (Not Detected) B.parapertussis DNA PCR (Not Detected) C. pneumoniae DNA (PCR) (Not Detected) Coronavirus (PCR) (Not Detected) Human Metapneumovir PCR (Not Detected) Influenza A (RT-PCR) (Not Detected) Influenza B (RT-PCR) (Not Detected) M. pneumoniae (PCR) (Not Detected) Parainfluen 1,2,3,4 PCR (Not Detected) RSV (PCR) (Not Detected) Entero/Rhino (PCR) (Not Detected) [place] Results Last 24 Hours: Microbiology 01/15/19 00:25 Aerobic Blood Culture - Preliminary Blood - Venous - Lab Draw NO GROWTH AFTER 1 DAY Anaerobic Blood Culture - Preliminary NO GROWTH AFTER 1 DAY 01/15/19 00:10 Aerobic Blood Culture - Preliminary Blood - Venous NO GROWTH AFTER 1 DAY Anaerobic Blood Culture - Preliminary NO GROWTH AFTER 1 DAY Med Orders - Current: Current Medications Allopurinol (Zyloprim) 300 mg PO DAILY [facility] Last Admin: 01/16/19 09:45 Dose: 300 mg Aspirin (Halfprin) 81 mg PO DAILY [facility] Last Admin: 01/16/19 09:43 Dose: 81 mg Enoxaparin Sodium (Lovenox) 40 mg SUBCUT DAILY [facility] Last Admin: 01/16/19 09:46 Dose: 40 mg Hydralazine HCl (Apresoline) 20 mg IVPUSH Q6H PRN PRN Reason: Hypertension Furosemide 100 mg/ Sodium (Chloride) 100 mls @ 4 mls/hr IV ASDIRECTED [facility]; Protocol Last Admin: 01/16/19 02:37 Dose: 4 mg/hr, 4 mls/hr Insulin Human Lispro (Humalog) 0 unit SUBCUT QIDACANDBED [facility]; Protocol Last Admin: 01/16/19 11:50 Dose: Not Given Metoprolol Succinate (Toprol Xl) 25 mg PO BID [facility] Last Admin: 01/16/19 09:44 Dose: 25 mg Metoprolol Tartrate (Lopressor) 5 mg IVPUSH Q4H PRN PRN Reason: Tachycardia Multivitamins (Thera) 1 each PO DAILY [facility] Last Admin: 01/16/19 09:43 Dose: 1 each Nitroglycerin (Nitrostat) 0.4 mg SL ASDIRECTED PRN PRN Reason: Chest Pain Ondansetron HCl (Zofran) 4 mg IVPUSH Q4HR PRN PRN Reason: Nausea/Vomiting Last Admin: 01/15/19 16:33 Dose: 4 mg Spironolactone (Aldactone) 25 mg PO DAILY [facility] Last Admin: 01/16/19 09:43 Dose: 25 mg Tamsulosin HCl (Flomax) 0.4 mg PO BEDTIME [facility] Last Admin: 01/15/19 21:08 Dose: 0.4 mg Discontinued Medications Amlodipine Besylate (Norvasc) 10 mg PO DAILY [facility] Last Admin: 01/15/19 15:53 Dose: Not Given Furosemide (Lasix) 40 mg IVPUSH NOW ONE Stop: 01/15/19 00:55 Last Admin: 01/15/19 01:09 Dose: 40 mg Hydralazine HCl (Apresoline) 10 mg IVPUSH Q4H PRN PRN Reason: Hypertension Potassium Chloride 10 meq/ (Premix) 100 mls @ 100 mls/hr IV Q1H [facility] Stop: 01/15/19 18:14 Last Admin: 01/15/19 15:54 Dose: Not Given Metoprolol Succinate (Toprol Xl) 50 mg PO BID [facility] Last Admin: 01/15/19 15:53 Dose: Not Given Potassium Chloride (Klor-Con M20) 40 meq PO ONETIME ONE Stop: 01/15/19 14:46 Last Admin: 01/15/19 15:20 Dose: 40 meq Prednisone (Prednisone) 20 mg PO BID PRN PRN Reason: gout - Exam Quality Assessment: Supplemental Oxygen, Urine Catheter, DVT Prophylaxis General: Alert, Oriented, Cooperative, No Acute Distress HEENT: Pupils Equal, Pupils Reactive, EOMI Neck: Trachea Midline Lungs: Normal Respiratory Effort, Decreased Breath Sounds Cardiovascular: Regular Rate, Irregular Rhythm GI/Abdominal Exam: Normal Bowel Sounds, Soft, Non-Tender, No Organomegaly, No Distention (Male) Exam: Deferred Back Exam: Normal Inspection Extremities: Normal Inspection, Non-Tender, Normal Capillary Refill, Pedal Edema Skin: Warm Neurological: No New Focal Deficit Psy/Mental Status: Alert, Normal Affect, Normal Mood - Problem List Review Problem List Initiated/Reviewed/Updated: Yes - My Orders Last 24 Hours: My Active Orders 01/15/19 12:30 Spironolactone [Aldactone] 25 mg PO DAILY 01/15/19 14:10 Bladder Scan [RC] ASDIRECTED 01/15/19 16:26 Ondansetron [Zofran] 4 mg IVPUSH Q4HR PRN 01/16/19 11:38 Ambulate [RC] BID 01/16/19 12:20 STREP PNEUMONIAE ANTIGEN [MREF] Routine - Plan Plan:: Impression: Acute decompensated CHF; HFrEF, LVEF <30 exacerbation of systolic heart failure ICMP, needs AICD Hx of CAD/MA with PCI PVD Chronic HELADIO/CPAP HTN HLD CKD, 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 Daily labs Home meds PCP, Card EMR DVT/GI prophylaxis Droplet isolation Consult CM/PT/OT
[2019-01-16] MEDS: Tamsulosin 0.4 MG Cap.ER PO SCH (21:34)
[2019-01-17] MEDS: Furosemide 100 MG in Sodium Chloride 0.9% 90 ML IV SCH (04:27)
[2019-01-17] MEDS: Insulin Lispro 100 UNIT/ML 10 ML VIAL SUBCUT SCH ×4 (07:09→22:53)
[2019-01-17] MEDS: Allopurinol 100 MG Tab PO SCH (09:04)
[2019-01-17] MEDS: Spironolactone 25 MG Tab PO SCH (09:05)
[2019-01-17] MEDS: Aspirin 81 MG Tab.EC PO SCH (09:07)
[2019-01-17] MEDS: Multivitamins,Therapeutic Tab PO SCH (09:07)
[2019-01-17] MEDS: Metoprolol Succinate 25 MG Tab.ER PO SCH ×2 (09:08→20:32)
[2019-01-17] MEDS: Enoxaparin 40 MG/0.4 ML Syringe SUBCUT SCH (09:09)
--- NOTE | 2019-01-17 13:05 | PCM.PN ---
- General Info Date of Service: 01/17/19 Functional Status: Reports: Pain Controlled, Tolerating Diet, Ambulating, Urinating - Review of Systems General: Reports: No Symptoms HEENT: Reports: No Symptoms Pulmonary: Reports: No Symptoms Cardiovascular: Reports: No Symptoms Gastrointestinal: Reports: No Symptoms Genitourinary: Reports: No Symptoms Musculoskeletal: Reports: No Symptoms Skin: Reports: No Symptoms Neurological: Reports: No Symptoms Psychiatric: Reports: No Symptoms - Patient Data Vitals - Most Recent: Last Vital Signs Temp 36.8 C 01/17/19 12:03 Pulse 70 01/17/19 12:03 Resp 14 01/17/19 12:03 BP 117/90 01/17/19 12:03 Pulse Ox 93 L 01/17/19 12:03 Weight - Most Recent: 73.164 kg I&O - Last 24 Hours: Intake & Output 01/16/19 01/17/19 01/17/19 22:59 06:59 14:59 Intake Total 1248 441 400 Output Total 300 1375 Balance 948 -934 400 Lab Results Last 24 Hours: Laboratory Results - last 24 hr 01/16/19 01/16/19 01/17/19 Range/Units 17:23 20:14 06:17 WBC 6.17 (4.23-9.07) K/mm3 RBC 4.52 L (4.63-6.08) M/mm3 Hgb 12.1 L (13.7-17.5) gm/L Hct 38.9 L (40.1-51.0) % MCV 86.1 (79.0-92.2) fl MCH 26.8 (25.7-32.2) pg MCHC 31.1 L (32.2-35.5) g/dl RDW Std Deviation 53.5 H (35.1-43.9) fL Plt Count 202 (163-337) K/mm3 MPV 10.5 (9.4-12.3) fl Neut % (Auto) 63.9 (34.0-67.9) % Lymph % (Auto) 13.6 L (21.8-53.1) % [place] % (Auto) 14.9 H (5.3-12.2) % Eos % (Auto) 7.1 H (0.8-7.0) Baso % (Auto) 0.3 (0.1-1.2) % Neut # (Auto) 3.94 (1.78-5.38) K/mm3 Lymph # (Auto) 0.84 L (1.32-3.57) K/mm3 [place] # (Auto) 0.92 H (0.30-0.82) K/mm3 Eos # (Auto) 0.44 (0.04-0.54) K/mm3 Baso # (Auto) 0.02 (0.01-0.08) K/mm3 Sodium (136-145) mEq/L Potassium (3.5-5.1) mEq/L Chloride (98-107) mEq/L Carbon Dioxide (21-32) mEq/L Anion Gap (5-15) BUN (7-18) mg/dL Creatinine (0.7-1.3) mg/dL Est Cr Clr Drug Dosing mL/min Estimated GFR (MDRD) (>60) mL/min BUN/Creatinine Ratio (14-18) Glucose (83-115) mg/dL POC Glucose 112 H 146 H (83-110) mg/dL Calcium (8.5-10.1) mg/dL Magnesium (1.8-2.4) mg/dl NT-Pro-B Natriuret Pep (0-450) pg/mL 01/17/19 01/17/19 01/17/19 Range/Units 06:17 06:17 06:45 WBC (4.23-9.07) K/mm3 RBC (4.63-6.08) M/mm3 Hgb (13.7-17.5) gm/L Hct (40.1-51.0) % MCV (79.0-92.2) fl MCH (25.7-32.2) pg MCHC (32.2-35.5) g/dl RDW Std Deviation (35.1-43.9) fL Plt Count (163-337) K/mm3 MPV (9.4-12.3) fl Neut % (Auto) (34.0-67.9) % Lymph % (Auto) (21.8-53.1) % [place] % (Auto) (5.3-12.2) % Eos % (Auto) (0.8-7.0) Baso % (Auto) (0.1-1.2) % Neut # (Auto) (1.78-5.38) K/mm3 Lymph # (Auto) (1.32-3.57) K/mm3 [place] # (Auto) (0.30-0.82) K/mm3 Eos # (Auto) (0.04-0.54) K/mm3 Baso # (Auto) (0.01-0.08) K/mm3 Sodium 142 (136-145) mEq/L Potassium 3.9 (3.5-5.1) mEq/L Chloride 103 (98-107) mEq/L Carbon Dioxide 31 (21-32) mEq/L Anion Gap 11.9 (5-15) BUN 30 H (7-18) mg/dL Creatinine 1.3 (0.7-1.3) mg/dL Est Cr Clr Drug Dosing 38.87 mL/min Estimated GFR (MDRD) 52 (>60) mL/min BUN/Creatinine Ratio 23.1 H (14-18) Glucose 99 (83-115) mg/dL POC Glucose 103 (83-110) mg/dL Calcium 9.2 (8.5-10.1) mg/dL Magnesium 2.2 (1.8-2.4) mg/dl NT-Pro-B Natriuret Pep 3554 H (0-450) pg/mL 01/17/19 Range/Units 10:40 WBC (4.23-9.07) K/mm3 RBC (4.63-6.08) M/mm3 Hgb (13.7-17.5) gm/L Hct (40.1-51.0) % MCV (79.0-92.2) fl MCH (25.7-32.2) pg MCHC (32.2-35.5) g/dl RDW Std Deviation (35.1-43.9) fL Plt Count (163-337) K/mm3 MPV (9.4-12.3) fl Neut % (Auto) (34.0-67.9) % Lymph % (Auto) (21.8-53.1) % [place] % (Auto) (5.3-12.2) % Eos % (Auto) (0.8-7.0) Baso % (Auto) (0.1-1.2) % Neut # (Auto) (1.78-5.38) K/mm3 Lymph # (Auto) (1.32-3.57) K/mm3 [place] # (Auto) (0.30-0.82) K/mm3 Eos # (Auto) (0.04-0.54) K/mm3 Baso # (Auto) (0.01-0.08) K/mm3 Sodium (136-145) mEq/L Potassium (3.5-5.1) mEq/L Chloride (98-107) mEq/L Carbon Dioxide (21-32) mEq/L Anion Gap (5-15) BUN (7-18) mg/dL Creatinine (0.7-1.3) mg/dL Est Cr Clr Drug Dosing mL/min Estimated GFR (MDRD) (>60) mL/min BUN/Creatinine Ratio (14-18) Glucose (83-115) mg/dL POC Glucose 121 H (83-110) mg/dL Calcium (8.5-10.1) mg/dL Magnesium (1.8-2.4) mg/dl NT-Pro-B Natriuret Pep (0-450) pg/mL [place] Results Last 24 Hours: Microbiology 01/15/19 00:25 Aerobic Blood Culture - Preliminary Blood - Venous - Lab Draw NO GROWTH AFTER 2 DAYS Anaerobic Blood Culture - Preliminary NO GROWTH AFTER 2 DAYS 01/15/19 00:10 Aerobic Blood Culture - Preliminary Blood - Venous NO GROWTH AFTER 2 DAYS Anaerobic Blood Culture - Preliminary NO GROWTH AFTER 2 DAYS Med Orders - Current: Current Medications Allopurinol (Zyloprim) 300 mg PO DAILY [facility] Last Admin: 01/17/19 09:04 Dose: 300 mg Aspirin (Halfprin) 81 mg PO DAILY [facility] Last Admin: 01/17/19 09:07 Dose: 81 mg Enoxaparin Sodium (Lovenox) 40 mg SUBCUT DAILY [facility] Last Admin: 01/17/19 09:09 Dose: 40 mg Hydralazine HCl (Apresoline) 20 mg IVPUSH Q6H PRN PRN Reason: Hypertension Furosemide 100 mg/ Sodium (Chloride) 100 mls @ 4 mls/hr IV ASDIRECTED [facility]; Protocol Last Admin: 01/17/19 04:27 Dose: 4 mg/hr, 4 mls/hr Insulin Human Lispro (Humalog) 0 unit SUBCUT QIDACANDBED [facility]; Protocol Last Admin: 01/17/19 07:09 Dose: Not Given Metoprolol Succinate (Toprol Xl) 25 mg PO BID [facility] Last Admin: 01/17/19 09:08 Dose: 25 mg Metoprolol Tartrate (Lopressor) 5 mg IVPUSH Q4H PRN PRN Reason: Tachycardia Multivitamins (Thera) 1 each PO DAILY [facility] Last Admin: 01/17/19 09:07 Dose: 1 each Nitroglycerin (Nitrostat) 0.4 mg SL ASDIRECTED PRN PRN Reason: Chest Pain Ondansetron HCl (Zofran) 4 mg IVPUSH Q4HR PRN PRN Reason: Nausea/Vomiting Last Admin: 01/15/19 16:33 Dose: 4 mg Spironolactone (Aldactone) 25 mg PO DAILY [facility] Last Admin: 01/17/19 09:05 Dose: 25 mg Tamsulosin HCl (Flomax) 0.4 mg PO BEDTIME [facility] Last Admin: 01/16/19 21:34 Dose: 0.4 mg Discontinued Medications Amlodipine Besylate (Norvasc) 10 mg PO DAILY [facility] Last Admin: 01/15/19 15:53 Dose: Not Given Furosemide (Lasix) 40 mg IVPUSH NOW ONE Stop: 01/15/19 00:55 Last Admin: 01/15/19 01:09 Dose: 40 mg Hydralazine HCl (Apresoline) 10 mg IVPUSH Q4H PRN PRN Reason: Hypertension Potassium Chloride 10 meq/ (Premix) 100 mls @ 100 mls/hr IV Q1H [facility] Stop: 01/15/19 18:14 Last Admin: 01/15/19 15:54 Dose: Not Given Metoprolol Succinate (Toprol Xl) 50 mg PO BID [facility] Last Admin: 01/15/19 15:53 Dose: Not Given Potassium Chloride (Klor-Con M20) 40 meq PO ONETIME ONE Stop: 01/15/19 14:46 Last Admin: 01/15/19 15:20 Dose: 40 meq Prednisone (Prednisone) 20 mg PO BID PRN PRN Reason: gout - Exam Quality Assessment: DVT Prophylaxis General: Alert, Oriented, Cooperative, No Acute Distress HEENT: Pupils Equal, Pupils Reactive, EOMI Neck: Trachea Midline, No JVD Lungs: Normal Respiratory Effort Cardiovascular: Regular Rate, Regular Rhythm GI/Abdominal Exam: Normal Bowel Sounds, Soft, Non-Tender, No Organomegaly, No Distention (Male) Exam: Deferred Back Exam: Normal Inspection Extremities: Normal Inspection, Non-Tender, Normal Capillary Refill Skin: Warm Neurological: No New Focal Deficit, Normal Gait, Normal Speech Psy/Mental Status: Alert, Normal Affect, Normal Mood - Problem List Review Problem List Initiated/Reviewed/Updated: Yes - My Orders Last 24 Hours: My Active Orders 01/16/19 12:20 STREP PNEUMONIAE ANTIGEN [MREF] Routine 01/17/19 12:38 Communication Order [RC] ASDIRECTED 01/18/19 07:00 CXR [Chest 2V] [CR] Routine - Plan Plan:: Impression: Acute decompensated CHF; HFrEF, LVEF <30 exacerbation of systolic heart failure ICMP, needs AICD; stop Lasix drip at 1600 hour Hx of CAD/DE with PCI PVD Chronic HELADIO/CPAP HTN HLD CKD, 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 Daily labs Home meds PCP, Card EMR DVT/GI prophylaxis Droplet isolation Consult CM/PT/OT Needs cardiology follow up.
[2019-01-17] MEDS ORDERED: Magnesium Hydroxide 400 MG/5 ML Susp 30 ML Cup PO ONE (14:28)
--- NOTE | 2019-01-17 18:25 | PCM.DCSUM1 ---
Discharge Summary - Hospital Course Free Text/Narrative:: 88 year old male was treated for acutely decompensated systolic heart failure. He was on a Lasix drip, and loss over 7 pounds. The patient has a history of CAD with most recent PCI (LAD, LCX) in 2015. His EMR states that he has moderate systolic dysfunction, however, an echo on this admission documents LVEF 28%. The patient is also known to have moderate ; he has not followed up with cardiology since the summer. The patient has a LBBB, thus may be considered for BiV-AICD; he is expected to follow up with his PCP this month, January. Primary Dx Acute decompensated CHF HFrEF, LVEF 28% NYHA functional class III CAD/PVD LBBB HELADIO on CPAP HPI Initial Comments: 88 year old male with PMH of CAD, PVD as well as CHF presents with progressive SOB. He described PND, orthopnea but denies pre-syncopal/syncopal episodes. There has also been no chest pain. Weight gain was unknown, he denies significant LE edema. NYHA functional class is unknown. He was last seen by his PCP less than 4 weeks ago. Cardiology provider addressed the need for a PPM /AICD in July 2018, however they are still undecided. The patient's code status is full code. Diagnosis: Stroke: No - Discharge Data Discharge Date: 01/18/19 Discharge Disposition: Home, Self-Care 01 Condition: Good - Patient Summary/Data Consults: Consultations 01/15/19 03:25 Consult to Diabetic Nurse Specialist [CONS] Routine 01/15/19 06:39 Consult to Case Management/Manager Investigations [CONS] Routine Consult to Pressure Control Supervisor [CONS] Routine Consult to Spiritual Care [CONS] Routine OT Evaluation and Treatment [CONS] Routine PT Evaluation and Treatment [CONS] Routine - Patient Instructions Diet: Heart Healthy Diet, Diabetic Diet Fluid Restriction: 2000 mL Activity: As Tolerated Driving: Do Not Drive Showering/Bathing: May Shower Notify Provider of: Fever, Increased Pain, Nausea and/or Vomiting - Discharge Plan *PRESCRIPTION DRUG MONITORING PROGRAM REVIEWED*: Not Applicable *COPY OF PRESCRIPTION DRUG MONITORING REPORT IN PATIENT MING: Not Applicable Prescriptions/Med Rec: Spironolactone [Aldactone] 25 mg PO DAILY #30 tablet Home Medications: Home Meds Benazepril HCl [Lotensin] 20 mg PO DAILY 05/19/14 [History] amLODIPine Besylate [Amlodipine Besylate] 10 mg PO DAILY 05/19/14 [History] Tamsulosin [Flomax] 0.4 mg PO BEDTIME 02/26/15 [History] Allopurinol [Zyloprim] 300 mg PO DAILY 07/07/15 [History] Multivitamin [Multivitamins] 1 tab PO DAILY 08/30/15 [History] Pantoprazole Sodium [Protonix] 40 mg PO DAILY 30 Days suspdr.pkt 09/02/15 [Rx] Ezetimibe [Zetia] 10 mg PO DAILY 06/13/18 [History] Furosemide [Lasix] 40 mg PO DAILY 06/13/18 [History] Metoprolol Succinate 50 mg PO BID 06/13/18 [History] Pravastatin [Pravachol] 80 mg PO DAILY 06/13/18 [History] metFORMIN [Glucophage XR] 250 mg PO BID 06/13/18 [History] predniSONE [Prednisone] 20 mg PO BID PRN 06/13/18 [History] Aspirin [Ecotrin] 81 mg PO DAILY 11/26/18 [History] Nitroglycerin [Nitrostat] 0.4 mg SL ASDIRECTED PRN 11/26/18 [History] Vit C/Gonzales & Celery Ex/Grp E [Tart Gonzales] 1 cap PO DAILY 11/26/18 [History] Spironolactone [Aldactone] 25 mg PO DAILY #30 tablet 01/17/19 [Rx] Other Amb Orders: BASIC METABOLIC PANEL,BMP [CHEM] Time Frame: 01/20/19, Facility: [facility], Location: [facility] Unit - [facility] Oxygen Therapy Mode: Room Air Patient Handouts: Biventricular Pacemaker Implantation, Chronic Kidney Disease , Adult, Heart Failure Exacerbation, Heart Failure Medicines, Heart Failure Eating Plan Referrals: Johan Khan MD [Primary Care Provider] - - Discharge Summary/Plan Comment DC Time >30 min.: No Discharge Summary/Plan Comment: Impression: Acute decompensated CHF; HFrEF, LVEF <30 exacerbation of systolic heart failure ICMP, needs AICD; stop Lasix drip at 1600 hour Hx of CAD/[place] with PCI PVD Chronic HELADIO/CPAP HTN HLD CKD, 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 Daily labs Home meds PCP, Card EMR DVT/GI prophylaxis Droplet isolation Consult CM/PT/OT Needs cardiology follow up. - General Info Date of Service: 01/15/19 Functional Status: Reports: Pain Controlled, Tolerating Diet, Ambulating - Review of Systems General: Reports: No Symptoms HEENT: Reports: No Symptoms Pulmonary: Reports: No Symptoms Cardiovascular: Reports: No Symptoms Gastrointestinal: Reports: No Symptoms Genitourinary: Reports: No Symptoms Musculoskeletal: Reports: No Symptoms Skin: Reports: No Symptoms Neurological: Reports: No Symptoms Psychiatric: Reports: No Symptoms - Patient Data Vitals - Most Recent: Last Vital Signs Temp 36.6 C 01/17/19 15:34 Pulse 69 01/17/19 15:34 Resp 18 01/17/19 15:34 BP 120/73 01/17/19 15:34 Pulse Ox 97 01/17/19 15:34 Weight - Most Recent: 73.164 kg I&O - Last 24 hours: Intake & Output 01/17/19 01/17/19 01/17/19 06:59 14:59 22:59 Intake Total 441 400 446 Output Total 1375 1040 Balance -934 400 -594 Lab Results - Last 24 hrs: Laboratory Results - last 24 hr 01/16/19 01/17/19 01/17/19 Range/Units 20:14 06:17 06:17 WBC 6.17 (4.23-9.07) K/mm3 RBC 4.52 L (4.63-6.08) M/mm3 Hgb 12.1 L (13.7-17.5) gm/L Hct 38.9 L (40.1-51.0) % MCV 86.1 (79.0-92.2) fl MCH 26.8 (25.7-32.2) pg MCHC 31.1 L (32.2-35.5) g/dl RDW Std Deviation 53.5 H (35.1-43.9) fL Plt Count 202 (163-337) K/mm3 MPV 10.5 (9.4-12.3) fl Neut % (Auto) 63.9 (34.0-67.9) % Lymph % (Auto) 13.6 L (21.8-53.1) % [place] % (Auto) 14.9 H (5.3-12.2) % Eos % (Auto) 7.1 H (0.8-7.0) Baso % (Auto) 0.3 (0.1-1.2) % Neut # (Auto) 3.94 (1.78-5.38) K/mm3 Lymph # (Auto) 0.84 L (1.32-3.57) K/mm3 [place] # (Auto) 0.92 H (0.30-0.82) K/mm3 Eos # (Auto) 0.44 (0.04-0.54) K/mm3 Baso # (Auto) 0.02 (0.01-0.08) K/mm3 Sodium 142 (136-145) mEq/L Potassium 3.9 (3.5-5.1) mEq/L Chloride 103 (98-107) mEq/L Carbon Dioxide 31 (21-32) mEq/L Anion Gap 11.9 (5-15) BUN 30 H (7-18) mg/dL Creatinine 1.3 (0.7-1.3) mg/dL Est Cr Clr Drug Dosing 38.87 mL/min Estimated GFR (MDRD) 52 (>60) mL/min BUN/Creatinine Ratio 23.1 H (14-18) Glucose 99 (83-115) mg/dL POC Glucose 146 H (83-110) mg/dL Calcium 9.2 (8.5-10.1) mg/dL Magnesium 2.2 (1.8-2.4) mg/dl NT-Pro-B Natriuret Pep (0-450) pg/mL 01/17/19 01/17/19 01/17/19 Range/Units 06:17 06:45 10:40 WBC (4.23-9.07) K/mm3 RBC (4.63-6.08) M/mm3 Hgb (13.7-17.5) gm/L Hct (40.1-51.0) % MCV (79.0-92.2) fl MCH (25.7-32.2) pg MCHC (32.2-35.5) g/dl RDW Std Deviation (35.1-43.9) fL Plt Count (163-337) K/mm3 MPV (9.4-12.3) fl Neut % (Auto) (34.0-67.9) % Lymph % (Auto) (21.8-53.1) % [place] % (Auto) (5.3-12.2) % Eos % (Auto) (0.8-7.0) Baso % (Auto) (0.1-1.2) % Neut # (Auto) (1.78-5.38) K/mm3 Lymph # (Auto) (1.32-3.57) K/mm3 [place] # (Auto) (0.30-0.82) K/mm3 Eos # (Auto) (0.04-0.54) K/mm3 Baso # (Auto) (0.01-0.08) K/mm3 Sodium (136-145) mEq/L Potassium (3.5-5.1) mEq/L Chloride (98-107) mEq/L Carbon Dioxide (21-32) mEq/L Anion Gap (5-15) BUN (7-18) mg/dL Creatinine (0.7-1.3) mg/dL Est Cr Clr Drug Dosing mL/min Estimated GFR (MDRD) (>60) mL/min BUN/Creatinine Ratio (14-18) Glucose (83-115) mg/dL POC Glucose 103 121 H (83-110) mg/dL Calcium (8.5-10.1) mg/dL Magnesium (1.8-2.4) mg/dl NT-Pro-B Natriuret Pep 3554 H (0-450) pg/mL 01/17/19 Range/Units 17:25 WBC (4.23-9.07) K/mm3 RBC (4.63-6.08) M/mm3 Hgb (13.7-17.5) gm/L Hct (40.1-51.0) % MCV (79.0-92.2) fl MCH (25.7-32.2) pg MCHC (32.2-35.5) g/dl RDW Std Deviation (35.1-43.9) fL Plt Count (163-337) K/mm3 MPV (9.4-12.3) fl Neut % (Auto) (34.0-67.9) % Lymph % (Auto) (21.8-53.1) % [place] % (Auto) (5.3-12.2) % Eos % (Auto) (0.8-7.0) Baso % (Auto) (0.1-1.2) % Neut # (Auto) (1.78-5.38) K/mm3 Lymph # (Auto) (1.32-3.57) K/mm3 [place] # (Auto) (0.30-0.82) K/mm3 Eos # (Auto) (0.04-0.54) K/mm3 Baso # (Auto) (0.01-0.08) K/mm3 Sodium (136-145) mEq/L Potassium (3.5-5.1) mEq/L Chloride (98-107) mEq/L Carbon Dioxide (21-32) mEq/L Anion Gap (5-15) BUN (7-18) mg/dL Creatinine (0.7-1.3) mg/dL Est Cr Clr Drug Dosing mL/min Estimated GFR (MDRD) (>60) mL/min BUN/Creatinine Ratio (14-18) Glucose (83-115) mg/dL POC Glucose 102 (83-110) mg/dL Calcium (8.5-10.1) mg/dL Magnesium (1.8-2.4) mg/dl NT-Pro-B Natriuret Pep (0-450) pg/mL ZEYAD Results - Last 24 hrs: Microbiology 01/15/19 00:25 Aerobic Blood Culture - Preliminary Blood - Venous - Lab Draw NO GROWTH AFTER 2 DAYS Anaerobic Blood Culture - Preliminary NO GROWTH AFTER 2 DAYS 01/15/19 00:10 Aerobic Blood Culture - Preliminary Blood - Venous NO GROWTH AFTER 2 DAYS Anaerobic Blood Culture - Preliminary NO GROWTH AFTER 2 DAYS Med Orders - Current: Current Medications Allopurinol (Zyloprim) 300 mg PO DAILY [facility] Last Admin: 01/17/19 09:04 Dose: 300 mg Aspirin (Halfprin) 81 mg PO DAILY [facility] Last Admin: 01/17/19 09:07 Dose: 81 mg Enoxaparin Sodium (Lovenox) 40 mg SUBCUT DAILY [facility] Last Admin: 01/17/19 09:09 Dose: 40 mg Hydralazine HCl (Apresoline) 20 mg IVPUSH Q6H PRN PRN Reason: Hypertension Furosemide 100 mg/ Sodium (Chloride) 100 mls @ 4 mls/hr IV ASDIRECTED [facility]; Protocol Last Admin: 01/17/19 04:27 Dose: 4 mg/hr, 4 mls/hr Insulin Human Lispro (Humalog) 0 unit SUBCUT QIDACANDBED [facility]; Protocol Last Admin: 01/17/19 17:50 Dose: Not Given Metoprolol Succinate (Toprol Xl) 25 mg PO BID [facility] Last Admin: 01/17/19 09:08 Dose: 25 mg Metoprolol Tartrate (Lopressor) 5 mg IVPUSH Q4H PRN PRN Reason: Tachycardia Multivitamins (Thera) 1 each PO DAILY [facility] Last Admin: 01/17/19 09:07 Dose: 1 each Nitroglycerin (Nitrostat) 0.4 mg SL ASDIRECTED PRN PRN Reason: Chest Pain Ondansetron HCl (Zofran) 4 mg IVPUSH Q4HR PRN PRN Reason: Nausea/Vomiting Last Admin: 01/15/19 16:33 Dose: 4 mg Spironolactone (Aldactone) 25 mg PO DAILY [facility] Last Admin: 01/17/19 09:05 Dose: 25 mg Tamsulosin HCl (Flomax) 0.4 mg PO BEDTIME [facility] Last Admin: 01/16/19 21:34 Dose: 0.4 mg Discontinued Medications Amlodipine Besylate (Norvasc) 10 mg PO DAILY [facility] Last Admin: 01/15/19 15:53 Dose: Not Given Furosemide (Lasix) 40 mg IVPUSH NOW ONE Stop: 01/15/19 00:55 Last Admin: 01/15/19 01:09 Dose: 40 mg Hydralazine HCl (Apresoline) 10 mg IVPUSH Q4H PRN PRN Reason: Hypertension Potassium Chloride 10 meq/ (Premix) 100 mls @ 100 mls/hr IV Q1H [facility] Stop: 01/15/19 18:14 Last Admin: 01/15/19 15:54 Dose: Not Given Magnesium Hydroxide (Milk Of Magnesia) 30 ml PO ONETIME ONE Stop: 01/17/19 14:29 Last Admin: 01/17/19 15:36 Dose: 30 ml Metoprolol Succinate (Toprol Xl) 50 mg PO BID [facility] Last Admin: 01/15/19 15:53 Dose: Not Given Potassium Chloride (Klor-Con M20) 40 meq PO ONETIME ONE Stop: 01/15/19 14:46 Last Admin: 01/15/19 15:20 Dose: 40 meq Prednisone (Prednisone) 20 mg PO BID PRN PRN Reason: gout - Exam Quality Assessment: Reports: DVT Prophylaxis General: Reports: Alert, Oriented, Cooperative, No Acute Distress HEENT: Reports: Pupils Equal, Pupils Reactive, EOMI Neck: Reports: Trachea Midline, No JVD Lungs: Reports: Normal Respiratory Effort Cardiovascular: Reports: Regular Rate, Regular Rhythm GI/Abdominal Exam: Normal Bowel Sounds, Soft, Non-Tender, No Organomegaly, No Distention (Male) Exam: Deferred Rectal (Males) Exam: Deferred Back Exam: Reports: Normal Inspection Extremities: Normal Inspection, Non-Tender, Normal Capillary Refill Skin: Reports: Warm Neurological: Reports: No New Focal Deficit, Normal Gait, Normal Speech Psy/Mental Status: Reports: Alert, Normal Affect, Normal Mood
[2019-01-17] MEDS: Tamsulosin 0.4 MG Cap.ER PO SCH (20:32)
[2019-01-18] MEDS: Insulin Lispro 100 UNIT/ML 10 ML VIAL SUBCUT SCH (07:01)
--- NOTE | 2019-01-18 08:38 | CR ---
Chest: Two views of the chest are obtained. Comparison: Prior chest x-ray of 01/16/19. Heart size appears within normal limits. Upper mediastinum is normal. Slightly lobulated right hemidiaphragm is seen. Lung markings are mildly increased which appear chronic. Stable blunting of the lateral left costophrenic angle is seen. No acute parenchymal change is seen. Bony structures are unremarkable. Impression: 1. Incidental findings. Nothing acute is suspected on current chest x-ray. Diagnostic code #2
[2019-01-18 09:38] VITALS: BP 113/68
[2019-01-18] MEDS: Metoprolol Succinate 25 MG Tab.ER PO SCH (09:39)
[2019-01-18] MEDS: Spironolactone 25 MG Tab PO SCH (09:39)
[2019-01-18] MEDS: Allopurinol 100 MG Tab PO SCH (09:39)
[2019-01-18] MEDS: Aspirin 81 MG Tab.EC PO SCH (09:39)
[2019-01-18] MEDS: Enoxaparin 40 MG/0.4 ML Syringe SUBCUT SCH (09:39)
[2019-01-18] MEDS: Multivitamins,Therapeutic Tab PO SCH (09:39)
== END 2019-01-18 10:27 | disposition home or self-care (01) | DRG 291 ==
LOC: JD.ED 23:21 → JD.MS 01-15 01:32
PROVIDERS: ADMIT Internal Medicine Cardiovascular Disease; ATTEND Internal Medicine Cardiovascular Disease
DX: I13.0 Hypertensive heart and chronic kidney disease with heart failure and stage 1 through stage 4 chronic kidney disease, or unspecified chronic kidney disease (principal); I50.9 Heart failure, unspecified; I50.23 Acute on chronic systolic (congestive) heart failure; N18.4 Chronic kidney disease, stage 4 (severe); G47.33 Obstructive sleep apnea (adult) (pediatric); I25.10 Atherosclerotic heart disease of native coronary artery without angina pectoris; I25.5 Ischemic cardiomyopathy; E78.00 Pure hypercholesterolemia, unspecified; N18.9 Chronic kidney disease, unspecified; K21.9 Gastro-esophageal reflux disease without esophagitis; N40.0 Benign prostatic hyperplasia without lower urinary tract symptoms; E11.22 Type 2 diabetes mellitus with diabetic chronic kidney disease; E78.5 Hyperlipidemia, unspecified; I35.0 Nonrheumatic aortic (valve) stenosis; I44.7 Left bundle-branch block, unspecified; E11.51 Type 2 diabetes mellitus with diabetic peripheral angiopathy without gangrene; I73.9 Peripheral vascular disease, unspecified; M10.9 Gout, unspecified; M19.90 Unspecified osteoarthritis, unspecified site; H54.7 Unspecified visual loss; R09.02 Hypoxemia; H91.90 Unspecified hearing loss, unspecified ear; I25.2 Old myocardial infarction; Z86.73 Personal history of transient ischemic attack (TIA), and cerebral infarction without residual deficits; Z87.442 Personal history of urinary calculi; Z85.46 Personal history of malignant neoplasm of prostate; Z95.5 Presence of coronary angioplasty implant and graft; R79.1 Abnormal coagulation profile; R06.02 Shortness of breath; R06.01 Orthopnea; R05 Cough; R06.2 Wheezing; Z79.899 Other long term (current) drug therapy; Z88.1 Allergy status to other antibiotic agents; Z88.5 Allergy status to narcotic agent; Z88.8 Allergy status to other drugs, medicaments and biological substances; Z79.84 Long term (current) use of oral hypoglycemic drugs; Z79.82 Long term (current) use of aspirin; Z79.52 Long term (current) use of systemic steroids; Z87.891 Personal history of nicotine dependence
CPT/HCPCS: 71046; 82803; 83605; 87040 ×2; 93005; 96374; 99285; J1940; 36415; 36600; 51798; 80048; 80053; 82962; 83735; 83880; 84484; 85007; 85025; 85027; 85379; 86140; 86738; 87486; 87581; 87632; 87798; 87804; 87899; 93010; 93306; 97161-GP; 97165-GO; A9270-GY; J1650; J2405; J7030

== ENCOUNTER 2021-03-31 09:57 | Inpatient (IN) | payer MEDICARE, OTHER ==
[2021-03-31] MEDS ORDERED: Sodium Chloride 0.9% 10 ML Syringe FLUSH PRN (10:16)
[2021-03-31] MEDS ORDERED: Sodium Chloride 0.9% 500 ML IV ONE (10:19)
--- NOTE | 2021-03-31 10:24 | EDM.PDOC ---
ED HPI GENERAL MEDICAL PROBLEM - General Chief Complaint: Respiratory Problem Stated Complaint: [facility] Time Seen by Provider: 03/31/21 10:06 Source of Information: Reports: Patient, EMS History Limitations: Reports: No Limitations - History of Present Illness INITIAL COMMENTS - FREE TEXT/NARRATIVE: The patient presents by [facility] for cough, low oxygen saturations and light headedness. The patient said for a couple of weeks he has had generalized weakness and fatigue. He also developed a cough. He said today was much worse. When he was up he was lightheaded. He was also diaphoretic. He denies any chest pain but he said with the 2 heart attacks he had he had no pain. He also has a history of stroke. He has no shortness of breath but his oxygen saturations were 78% when EMS got there after he moved around. They put him on oxygen and he responded nicely. He is not on any oxygen at home. He has a history of coronary artery disease, congestive heart failure, NE X 2, CVA, and sleep apnea and he uses CPAP. He does not have COPD or asthma. He has no abdominal pain, nausea or vomiting. He denies fever or chills. Onset: Gradual Duration: Week(s): Severity: Moderate Improves with: Reports: Rest Worsens with: Reports: Movement Associated Symptoms: Denies: Chest Pain, Fever/Chills, Nausea/Vomiting - Related Data Allergies Allergy/AdvReac Type Severity Reaction Status Date / Time ampicillin Allergy Cannot Verified 03/31/21 10:10 Remember hydrocodone AdvReac Cannot Verified 03/31/21 10:10 Remember tramadol AdvReac Cannot Verified 03/31/21 10:10 Remember Home Meds: Home Meds Benazepril HCl [Lotensin] 10 mg PO DAILY 05/19/14 [History] Tamsulosin [Flomax] 0.4 mg PO BEDTIME 02/26/15 [History] Allopurinol [Zyloprim] 300 mg PO DAILY 07/07/15 [History] Multivitamin [Multivitamins] 1 tab PO DAILY 08/30/15 [History] Pantoprazole Sodium [Protonix] 40 mg PO DAILY 30 Days suspdr.pkt 09/02/15 [Rx] Furosemide [Lasix] 40 mg PO DAILY 06/13/18 [History] Metoprolol Succinate 50 mg PO BID 06/13/18 [History] predniSONE [Prednisone] 20 mg PO BID PRN 06/13/18 [History] Aspirin [Ecotrin EC] 81 mg PO DAILY 11/26/18 [History] C/Sourcherry/Celery/Grape Seed [Tart [place]] 1 cap PO DAILY 11/26/18 [History] Nitroglycerin [Nitrostat] 0.4 mg SL ASDIRECTED PRN 11/26/18 [History] Spironolactone [Aldactone] 25 mg PO DAILY #30 tablet 01/17/19 [Rx] Rosuvastatin [Crestor] 20 mg PO DAILY 03/31/21 [History] Past Medical History HEENT History: Reports: Hard of Hearing, Impaired Vision Other HEENT History: Bilateral hearing aids, glasses Cardiovascular History: Reports: CAD, Heart Failure, High Cholesterol, Hypertension, NE Respiratory History: Reports: Sleep Apnea Other Respiratory History: cpap used at home Gastrointestinal History: Reports: GERD, Hemorrhoids Genitourinary History: Reports: BPH, Chronic Renal Insuffiency, Renal Calculus Other Genitourinary History: Prostate cancer - seeds implanted. Musculoskeletal History: Reports: Gout, Osteoarthritis Neurological History: Reports: CVA Other Neuro History: no residual affect -improved with therapy Endocrine/Metabolic History: Reports: Diabetes, Type II Oncologic (Cancer) History: Reports: Prostate Other Oncologic History: seeds implanted - Infectious Disease History Infectious Disease History: Reports: None - Past Surgical History HEENT Surgical History: Reports: Cataract Surgery Cardiovascular Surgical History: Reports: Carotid Endarterectomy, Coronary Arter y Stent GI Surgical History: Reports: Colonoscopy, Hernia, Inguinal Male Surgical History: Reports: Other (See Below) Other Male Surgeries/Procedures: prostate cancer - seeds Social & Family History - Caffeine Use Caffeine Use: Reports: Coffee Other Caffeine Use: 3 cups/day - Living Situation & Occupation Living situation: Reports: , with Spouse Occupation: Retired ED ROS GENERAL - Review of Systems Review Of Systems: See Below Constitutional: Reports: Malaise, Weakness, Fatigue. Denies: Fever, Chills HEENT: Reports: No Symptoms Respiratory: Reports: Cough. Denies: Shortness of Breath Cardiovascular: Reports: Lightheadedness. Denies: Chest Pain Endocrine: Reports: Fatigue GI/Abdominal: Reports: No Symptoms : Reports: No Symptoms Musculoskeletal: Reports: No Symptoms ED EXAM, GENERAL - Physical Exam Exam: See Below Exam Limited By: No Limitations General Appearance: Alert, No Apparent Distress Ears: Normal External Exam Nose: Normal Inspection Head: Atraumatic, Normocephalic Neck: Normal Inspection Respiratory/Chest: No Respiratory Distress, Decreased Breath Sounds Cardiovascular: No Edema, No Murmur, Tachycardia GI/Abdominal: Soft, Non-Tender, No Organomegaly, No Mass Back Exam: Normal Inspection Extremities: Pedal Edema Neurological: Alert, Oriented, No Motor/Sensory Deficits #1 Interpretation EKG Date: 03/31/21 Time: 10:10 Rhythm: Other (Paced rhythm) Rate (Beats/Min): 140 [place]: Normal P-Wave: Absent QRS: LBBB ST-T: Normal QT: Normal Course - Vital Signs Last Recorded V/S: Last Vital Signs Temp 96.8 F L 03/31/21 10:01 Pulse 146 H 03/31/21 10:01 Resp 18 03/31/21 10:01 BP 105/59 L 03/31/21 10:01 Pulse Ox 93 L 03/31/21 10:01 - Orders/Labs/Meds Orders: Active Orders 24 hr Category Date Time Status Cardiac Monitoring [RC] . DIRECTED Care 03/31/21 10:16 Active EKG Documentation Completion [RC] STAT Care 03/31/21 10:17 Active Oxygen Therapy [RC] PRN Care 03/31/21 10:16 Active Peripheral IV Care [RC] . DIRECTED Care 03/31/21 10:17 Active Chest 1V Frontal [CR] Stat Exams 03/31/21 10:17 Taken CULTURE BLOOD [BC] Stat Lab 03/31/21 10:39 Received CULTURE BLOOD [BC] Stat Lab 03/31/21 10:49 Received Sodium Chloride 0.9% [Saline Flush] Med 03/31/21 10:16 Active 10 ml FLUSH ASDIRECTED PRN Blood Culture x2 Reflex Set [OM.PC] Stat Oth 03/31/21 10:17 Ordered Peripheral IV Insertion Adult [OM.PC] Stat Oth 03/31/21 10:16 Ordered Medication Orders Sodium Chloride (Sodium Chloride 0.9% 10 Ml Syringe) 10 ml FLUSH ASDIRECTED PRN PRN Reason: Keep Vein Open Last Admin: 03/31/21 11:02 Dose: 10 ml Documented by: DORY Labs: Laboratory Tests 0503/31/21 03/31/21 Range/Units 10:24 10:39 10:39 WBC 7.28 (4.23-9.07) K/mm3 RBC 3.27 L (4.63-6.08) M/mm3 Hgb 9.8 L D (13.7-17.5) gm/dl Hct 32.0 L (40.1-51.0) % MCV 97.9 H D (79.0-92.2) fl MCH 30.0 (25.7-32.2) pg MCHC 30.6 L (32.2-35.5) g/dl RDW Std Deviation 55.7 H (35.1-43.9) fL Plt Count 153 L (163-337) K/mm3 MPV 11.0 (9.4-12.3) fl Neut % (Auto) 86.0 H (34.0-67.9) % Lymph % (Auto) 5.2 L (21.8-53.1) % [place] % (Auto) 7.6 (5.3-12.2) % Eos % (Auto) 0.8 (0.8-7.0) Baso % (Auto) 0.3 (0.1-1.2) % Neut # (Auto) 6.26 H (1.78-5.38) K/mm3 Lymph # (Auto) 0.38 L (1.32-3.57) K/mm3 [place] # (Auto) 0.55 (0.30-0.82) K/mm3 Eos # (Auto) 0.06 (0.04-0.54) K/mm3 Baso # (Auto) 0.02 (0.01-0.08) K/mm3 Manual Slide Review Abnormal smear PT 12.3 H (9.7-12.0) SECONDS INR 1.15 APTT 25.9 (21.7-31.4) SECONDS Sodium (136-145) mEq/L Potassium (3.5-5.1) mEq/L Chloride (98-107) mEq/L Carbon Dioxide (21-32) mEq/L Anion Gap (5-15) BUN (7-18) mg/dL Creatinine (0.7-1.3) mg/dL Est Cr Clr Drug Dosing mL/min Estimated GFR (MDRD) (>60) mL/min BUN/Creatinine Ratio (14-18) Glucose (83-115) mg/dL Lactic Acid (0.4-2.0) mmol/L Calcium (8.5-10.1) mg/dL Total Bilirubin (0.2-1.0) mg/dL AST (15-37) U/L ALT (16-63) U/L Alkaline Phosphatase (46-116) U/L Troponin I (0.00-0.056) ng/mL C-Reactive Protein (<1.0) mg/dL NT-Pro-B Natriuret Pep (0-450) pg/mL Total Protein (6.4-8.2) g/dl Albumin (3.4-5.0) g/dl Globulin gm/dL Albumin/Globulin Ratio (1-2) SARS-CoV-2 RNA (DONTE) Negative (NEGATIVE) 03/31/21 03/31/21 03/31/21 Range/Units 10:39 10:39 10:39 WBC (4.23-9.07) K/mm3 RBC (4.63-6.08) M/mm3 Hgb (13.7-17.5) gm/dl Hct (40.1-51.0) % MCV (79.0-92.2) fl MCH (25.7-32.2) pg MCHC (32.2-35.5) g/dl RDW Std Deviation (35.1-43.9) fL Plt Count (163-337) K/mm3 MPV (9.4-12.3) fl Neut % (Auto) (34.0-67.9) % Lymph % (Auto) (21.8-53.1) % [place] % (Auto) (5.3-12.2) % Eos % (Auto) (0.8-7.0) Baso % (Auto) (0.1-1.2) % Neut # (Auto) (1.78-5.38) K/mm3 Lymph # (Auto) (1.32-3.57) K/mm3 [place] # (Auto) (0.30-0.82) K/mm3 Eos # (Auto) (0.04-0.54) K/mm3 Baso # (Auto) (0.01-0.08) K/mm3 Manual Slide Review PT (9.7-12.0) SECONDS INR APTT (21.7-31.4) SECONDS Sodium 138 (136-145) mEq/L Potassium 4.5 (3.5-5.1) mEq/L Chloride 104 (98-107) mEq/L Carbon Dioxide 22 (21-32) mEq/L Anion Gap 16.5 H (5-15) BUN 39 H (7-18) mg/dL Creatinine 2.1 H (0.7-1.3) mg/dL Est Cr Clr Drug Dosing 19.19 mL/min Estimated GFR (MDRD) 30 (>60) mL/min BUN/Creatinine Ratio 18.6 H (14-18) Glucose 139 H (83-115) mg/dL Lactic Acid 1.5 (0.4-2.0) mmol/L Calcium 8.5 (8.5-10.1) mg/dL Total Bilirubin 0.3 (0.2-1.0) mg/dL AST 24 (15-37) U/L ALT 24 (16-63) U/L Alkaline Phosphatase 67 (46-116) U/L Troponin I 0.044 (0.00-0.056) ng/mL C-Reactive Protein 5.1 H* (<1.0) mg/dL NT-Pro-B Natriuret Pep > 27429 H (0-450) pg/mL Total Protein 6.7 (6.4-8.2) g/dl Albumin 3.0 L (3.4-5.0) g/dl Globulin 3.7 gm/dL Albumin/Globulin Ratio 0.8 L (1-2) SARS-CoV-2 RNA (DONTE) (NEGATIVE) Meds: Medications Generic Name Dose Route Start Last Admin Trade Name Freq PRN Reason Stop Dose Admin Sodium Chloride 10 ml 03/31/21 10:16 03/31/21 11:02 Sodium Chloride 0.9% 10 Ml Syringe FLUSH 10 ml ASDIRECTED PRN Administration Keep Vein Open Discontinued Medications Generic Name Dose Route Start Last Admin Trade Name Freq PRN Reason Stop Dose Admin Sodium Chloride 500 mls @ 1,000 mls/hr 03/31/21 10:19 03/31/21 10:50 Normal Saline IV 03/31/21 10:48 1,000 mls/hr .BOLUS ONE Administration Ceftriaxone Sodium 2 gm/ 100 mls @ 200 mls/hr 03/31/21 11:34 03/31/21 11:43 Sodium Chloride IV 03/31/21 12:03 200 mls/hr ONETIME ONE Administration - Re-Assessments/Exams Free Text/Narrative Re-Assessment/Exam: 03/31/21 10:31 I ordered oxygen, IV NS 500ml bolus, CXR, labs, blood cultures, lactic acid, and EKG. His EKG shows a paced rhythm. 03/31/21 12:29 His EKG shows a paced rhythm at 140. His CXR shows an infiltrate to the right middle lobe. His WBC was normal. His Hgb was low at 9.8. His anion gap is elevated at 16.5. His creatinine is elevated at 2.1. His glucose is elevated at 139. His troponin is normal at 0.044. His CRP is elevated at 5.1. His BNP is elevated >35,000. His COVID 19 is negative. He has pneumonia and CHF exacerbation. I feel he needs to be admitted. I called Dr Tee and he agreed to the admission. Departure - Departure Time of Disposition: 12:35 Disposition: Admitted As Inpatient 67 Condition: Fair Clinical Impression: Pneumonia Qualifiers: Pneumonia type: due to unspecified organism Laterality: right Lung location: lower lobe of lung Qualified Code(s): J18.9 - Pneumonia, unspecified organism CHF (congestive heart failure) Qualifiers: Heart failure type: unspecified Heart failure chronicity: chronic Qualified Code(s): I50.9 - Heart failure, unspecified - Discharge Information Forms: ED Department Discharge Sepsis Event Note (ED) - Evaluation Sepsis Screening Result: No Definite Risk - Focused Exam Vital Signs: Vital Signs Temp Pulse Resp BP Pulse Ox 03/31/21 10:01 96.8 F L 146 H 18 105/59 L 93 L - My Orders Last 24 Hours: My Active Orders 03/31/21 10:16 Cardiac Monitoring [RC] . DIRECTED Oxygen Therapy [RC] PRN Sodium Chloride 0.9% [Saline Flush] 10 ml FLUSH ASDIRECTED PRN Peripheral IV Insertion Adult [OM.PC] Stat 03/31/21 10:17 EKG Documentation Completion [RC] STAT Peripheral IV Care [RC] . DIRECTED Chest 1V Frontal [CR] Stat Blood Culture x2 Reflex Set [OM.PC] Stat 03/31/21 10:39 CULTURE BLOOD [BC] Stat 03/31/21 10:49 CULTURE BLOOD [BC] Stat - Assessment/Plan Last 24 Hours: My Active Orders 03/31/21 10:16 Cardiac Monitoring [RC] . DIRECTED Oxygen Therapy [RC] PRN Sodium Chloride 0.9% [Saline Flush] 10 ml FLUSH ASDIRECTED PRN Peripheral IV Insertion Adult [OM.PC] Stat 03/31/21 10:17 EKG Documentation Completion [RC] STAT Peripheral IV Care [RC] . DIRECTED Chest 1V Frontal [CR] Stat Blood Culture x2 Reflex Set [OM.PC] Stat 03/31/21 10:39 CULTURE BLOOD [BC] Stat 03/31/21 10:49 CULTURE BLOOD [BC] Stat
[2021-03-31] MEDS ORDERED: cefTRIAXone 2 GM in Sodium Chloride 0.9% 100 ML IV ONE (11:34)
[2021-03-31] MEDS ORDERED: Acetaminophen 325 MG Tab PO PRN (13:09)
[2021-03-31] MEDS ORDERED: Acetaminophen/HYDROcodone 325-5 MG Tab PO PRN (13:09)
[2021-03-31] MEDS ORDERED: Promethazine 12.5 MG in Sodium Chloride 0.9% 50 ML IV PRN ×2 (13:09→13:22)
[2021-03-31] MEDS ORDERED: Morphine 2 MG/ML SYRINGE IVPUSH PRN (13:09)
[2021-03-31] MEDS ORDERED: Docusate Sodium 100 MG Cap PO PRN (13:09)
--- NOTE | 2021-03-31 13:41 | PCM.HP.2 ---
H&P History of Present Illness - General Date of Service: 03/31/21 Admit Problem/Dx: Admission Diagnosis/Problem Admission Diagnosis/Problem Pneumonia Source of Information: Patient - History of Present Illness Initial Comments - Free Text/Narative: Patient is an 89-year-old male with a history of CHF, anemia, prostate cancer, gout, history of CVA and sleep apnea on CPAP who was brought by EMS to the ER due to worsening shortness of breath, cough, lightheadedness and generalized weakness for 4 to 5 days. Otherwise the patient denies headache, chest pain, abdominal pain, nausea, vomiting, fever, chills, or diarrhea. From his chart, he has a diabetes but patient denies having diabetes. Patient was admitted to the hospital On January 15, 2019 for CHF exacerbation. On the way to the ER, he was found to have low oxygen desaturation. In the ER, chest x-ray showed right middle lobe pneumonia. - Related Data Home Medications: Home Meds Benazepril HCl [Lotensin] 10 mg PO DAILY 05/19/14 [History] Tamsulosin [Flomax] 0.4 mg PO BEDTIME 02/26/15 [History] Allopurinol [Zyloprim] 300 mg PO DAILY 07/07/15 [History] Multivitamin [Multivitamins] 1 tab PO DAILY 08/30/15 [History] Pantoprazole Sodium [Protonix] 40 mg PO DAILY 30 Days suspdr.pkt 09/02/15 [Rx] Furosemide [Lasix] 40 mg PO DAILY 06/13/18 [History] Metoprolol Succinate 50 mg PO BID 06/13/18 [History] predniSONE [Prednisone] 20 mg PO BID PRN 06/13/18 [History] Aspirin [Ecotrin EC] 81 mg PO DAILY 11/26/18 [History] C/Sourcherry/Celery/Grape Seed [[place]] 1 cap PO DAILY 11/26/18 [History] Nitroglycerin [Nitrostat] 0.4 mg SL ASDIRECTED PRN 11/26/18 [History] Spironolactone [Aldactone] 25 mg PO DAILY #30 tablet 01/17/19 [Rx] Rosuvastatin [Crestor] 20 mg PO DAILY 03/31/21 [History] Past Medical History HEENT History: Reports: Hard of Hearing, Impaired Vision Other HEENT History: Bilateral hearing aids, glasses Cardiovascular History: Reports: CAD, Heart Failure, High Cholesterol, Hypertension, [place] Respiratory History: Reports: Sleep Apnea Other Respiratory History: cpap used at home Gastrointestinal History: Reports: GERD, Hemorrhoids Genitourinary History: Reports: BPH, Chronic Renal Insuffiency, Renal Calculus Other Genitourinary History: Prostate cancer - seeds implanted. Musculoskeletal History: Reports: Gout, Osteoarthritis Neurological History: Reports: CVA Other Neuro History: no residual affect -improved with therapy Endocrine/Metabolic History: Reports: Diabetes, Type II Oncologic (Cancer) History: Reports: Prostate Other Oncologic History: seeds implanted - Infectious Disease History Infectious Disease History: Reports: None - Past Surgical History HEENT Surgical History: Reports: Cataract Surgery Cardiovascular Surgical History: Reports: Carotid Endarterectomy, Coronary Artery Stent GI Surgical History: Reports: Colonoscopy, Hernia, Inguinal Male Surgical History: Reports: Other (See Below) Other Male Surgeries/Procedures: prostate cancer - seeds Social & Family History - Family History Family Medical History: No Pertinent Family History (Denies genetic diseases in the family) - Caffeine Use Caffeine Use: Reports: Coffee Other Caffeine Use: 3 cups/day - Living Situation & Occupation Living situation: Reports: , with Spouse Occupation: Retired H&P Review of Systems - Review of Systems: Review Of Systems: See Below General: Reports: Weakness, Fatigue HEENT: Reports: No Symptoms Pulmonary: Reports: Shortness of Breath, Cough Cardiovascular: Reports: No Symptoms Gastrointestinal: Reports: No Symptoms Genitourinary: Reports: No Symptoms Musculoskeletal: Reports: No Symptoms Skin: Reports: No Symptoms Psychiatric: Reports: No Symptoms Neurological: Reports: Dizziness Hematologic/Lymphatic: Reports: No Symptoms Immunologic: Reports: No Symptoms Exam - Exam Exam: See Below - Vital Signs Vital Signs: Last Vital Signs Temp 36.0 C L 03/31/21 10:01 Pulse 146 H 03/31/21 10:01 Resp 18 03/31/21 10:01 BP 105/59 L 03/31/21 10:01 Pulse Ox 93 L 03/31/21 10:01 Weight: 68.039 kg - Exam General: Alert, Oriented, Cooperative, Mild Distress (Due to shortness of breath) HEENT: Conjunctiva Clear, EOMI, Pupils Equal, Pupils Reactive Neck: Supple, Full Range of Motion Lungs: Normal Respiratory Effort, Crackles (Right middle and lower silver), Rhonchi (Left lower lobe) Cardiovascular: Regular Rate, Regular Rhythm, Normal S1, Normal S2 GI/Abdominal Exam: Normal Bowel Sounds, Soft, Non-Tender, No Organomegaly Extremities: Normal Inspection, Normal Range of Motion, Non-Tender, Pedal Edema (1+) Skin: Warm, Dry, Intact Neurological: Normal Speech, Normal Tone, Sensation Intact, Other (Left arm and left leg seem to be weaker than right. ) Neuro Extensive - Mental Status: Alert, Oriented x3, Normal Mood/Affect Psychiatric: Alert, Normal Affect, Normal Mood - Patient Data Lab Results Last 24 hrs: Laboratory Results - last 24 hr 03/31/21 03/31/21 03/31/21 Range/Units 10:24 10:39 10:39 WBC 7.28 (4.23-9.07) K/mm3 RBC 3.27 L (4.63-6.08) M/mm3 Hgb 9.8 L D (13.7-17.5) gm/dl Hct 32.0 L (40.1-51.0) % MCV 97.9 H D (79.0-92.2) fl MCH 30.0 (25.7-32.2) pg MCHC 30.6 L (32.2-35.5) g/dl RDW Std Deviation 55.7 H (35.1-43.9) fL Plt Count 153 L (163-337) K/mm3 MPV 11.0 (9.4-12.3) fl Neut % (Auto) 86.0 H (34.0-67.9) % Lymph % (Auto) 5.2 L (21.8-53.1) % [place] % (Auto) 7.6 (5.3-12.2) % Eos % (Auto) 0.8 (0.8-7.0) Baso % (Auto) 0.3 (0.1-1.2) % Neut # (Auto) 6.26 H (1.78-5.38) K/mm3 Lymph # (Auto) 0.38 L (1.32-3.57) K/mm3 [place] # (Auto) 0.55 (0.30-0.82) K/mm3 Eos # (Auto) 0.06 (0.04-0.54) K/mm3 Baso # (Auto) 0.02 (0.01-0.08) K/mm3 Manual Slide Review Abnormal smear PT 12.3 H (9.7-12.0) SECONDS INR 1.15 APTT 25.9 (21.7-31.4) SECONDS Sodium (136-145) mEq/L Potassium (3.5-5.1) mEq/L Chloride (98-107) mEq/L Carbon Dioxide (21-32) mEq/L Anion Gap (5-15) BUN (7-18) mg/dL Creatinine (0.7-1.3) mg/dL Est Cr Clr Drug Dosing mL/min Estimated GFR (MDRD) (>60) mL/min BUN/Creatinine Ratio (14-18) Glucose (83-115) mg/dL Lactic Acid (0.4-2.0) mmol/L Calcium (8.5-10.1) mg/dL Total Bilirubin (0.2-1.0) mg/dL AST (15-37) U/L ALT (16-63) U/L Alkaline Phosphatase (46-116) U/L Troponin I (0.00-0.056) ng/mL C-Reactive Protein (<1.0) mg/dL NT-Pro-B Natriuret Pep (0-450) pg/mL Total Protein (6.4-8.2) g/dl Albumin (3.4-5.0) g/dl Globulin gm/dL Albumin/Globulin Ratio (1-2) SARS-CoV-2 RNA (DONTE) Negative (NEGATIVE) 03/31/21 03/31/21 03/31/21 Range/Units 10:39 10:39 10:39 WBC (4.23-9.07) K/mm3 RBC (4.63-6.08) M/mm3 Hgb (13.7-17.5) gm/dl Hct (40.1-51.0) % MCV (79.0-92.2) fl MCH (25.7-32.2) pg MCHC (32.2-35.5) g/dl RDW Std Deviation (35.1-43.9) fL Plt Count (163-337) K/mm3 MPV (9.4-12.3) fl Neut % (Auto) (34.0-67.9) % Lymph % (Auto) (21.8-53.1) % [place] % (Auto) (5.3-12.2) % Eos % (Auto) (0.8-7.0) Baso % (Auto) (0.1-1.2) % Neut # (Auto) (1.78-5.38) K/mm3 Lymph # (Auto) (1.32-3.57) K/mm3 [place] # (Auto) (0.30-0.82) K/mm3 Eos # (Auto) (0.04-0.54) K/mm3 Baso # (Auto) (0.01-0.08) K/mm3 Manual Slide Review PT (9.7-12.0) SECONDS INR APTT (21.7-31.4) SECONDS Sodium 138 (136-145) mEq/L Potassium 4.5 (3.5-5.1) mEq/L Chloride 104 (98-107) mEq/L Carbon Dioxide 22 (21-32) mEq/L Anion Gap 16.5 H (5-15) BUN 39 H (7-18) mg/dL Creatinine 2.1 H (0.7-1.3) mg/dL Est Cr Clr Drug Dosing 19.19 mL/min Estimated GFR (MDRD) 30 (>60) mL/min BUN/Creatinine Ratio 18.6 H (14-18) Glucose 139 H (83-115) mg/dL Lactic Acid 1.5 (0.4-2.0) mmol/L Calcium 8.5 (8.5-10.1) mg/dL Total Bilirubin 0.3 (0.2-1.0) mg/dL AST 24 (15-37) U/L ALT 24 (16-63) U/L Alkaline Phosphatase 67 (46-116) U/L Troponin I 0.044 (0.00-0.056) ng/mL C-Reactive Protein 5.1 H* (<1.0) mg/dL NT-Pro-B Natriuret Pep > 31228 H (0-450) pg/mL Total Protein 6.7 (6.4-8.2) g/dl Albumin 3.0 L (3.4-5.0) g/dl Globulin 3.7 gm/dL Albumin/Globulin Ratio 0.8 L (1-2) SARS-CoV-2 RNA (DONTE) (NEGATIVE) Result Diagrams: 03/31/21 10:39 03/31/21 10:39 Sepsis Event Note - Evaluation Sepsis Screening Result: No Definite Risk - Focused Exam Vital Signs: Vital Signs Temp Pulse Resp BP Pulse Ox 03/31/21 10:01 36.0 C L 146 H 18 105/59 L 93 L Problem List Initiated/Reviewed/Updated: Yes Orders Last 24hrs: Active Orders 24 hr Category Date Time Status Patient Status [ADT] Routine ADT 03/31/21 12:39 Active Cardiac Monitoring [RC] . DIRECTED Care 03/31/21 10:16 Active Cardiac Monitoring [RC] CONTINUOUS Care 03/31/21 13:10 Ordered EKG Documentation Completion [RC] STAT Care 03/31/21 10:17 Active Height and Weight [RC] DAILY Care 03/31/21 13:09 Ordered Intake and Output [RC] QSHIFT Care 03/31/21 13:10 Ordered Oxygen Therapy [RC] PRN Care 03/31/21 10:16 Active Oxygen Therapy [RC] PRN Care 03/31/21 13:09 Ordered Peripheral IV Care [RC] . DIRECTED Care 03/31/21 10:17 Active Pulse Oximetry [RC] CONTINUOUS Care 03/31/21 13:10 Ordered RT Aerosol Therapy [RC] ASDIRECTED Care 03/31/21 13:12 Ordered Up With Assistance [RC] ASDIRECTED Care 03/31/21 13:09 Ordered VTE/DVT Education [RC] PER UNIT ROUTINE Care 03/31/21 13:09 Ordered Vital Signs [RC] Q4H Care 03/31/21 13:09 Ordered OT Evaluation and Treatment [CONS] Routine Cons 03/31/21 13:12 Ordered PT Evaluation and Treatment [CONS] Routine Cons 03/31/21 13:12 Ordered 2 Gram Sodium Diet [DIET] Diet 03/31/21 Dinner Ordered Chest 1V Frontal [CR] Stat Exams 03/31/21 10:17 Taken CBC WITH AUTO DIFF [HEME] DAILY Lab 04/01/21 05:00 Ordered CBC WITH AUTO DIFF [HEME] DAILY Lab 04/02/21 05:00 Ordered CBC WITH AUTO DIFF [HEME] DAILY Lab 04/03/21 05:00 Ordered CBC WITH AUTO DIFF [HEME] DAILY Lab 04/04/21 05:00 Ordered CBC WITH AUTO DIFF [HEME] DAILY Lab 04/05/21 05:00 Ordered COMPREHENSIVE METABOLIC PN,CMP [CHEM] DAILY Lab 04/01/21 05:00 Ordered COMPREHENSIVE METABOLIC PN,CMP [CHEM] DAILY Lab 04/02/21 05:00 Ordered COMPREHENSIVE METABOLIC PN,CMP [CHEM] DAILY Lab 04/03/21 05:00 Ordered COMPREHENSIVE METABOLIC PN,CMP [CHEM] DAILY Lab 04/04/21 05:00 Ordered COMPREHENSIVE METABOLIC PN,CMP [CHEM] DAILY Lab 04/05/21 05:00 Ordered CULTURE BLOOD [BC] Stat Lab 03/31/21 10:39 Received CULTURE BLOOD [BC] Stat Lab 03/31/21 10:49 Received CULTURE SPUTUM + SMEAR [RM] Stat Lab 03/31/21 13:12 Ordered MAGNESIUM [CHEM] Routine Lab 03/31/21 13:12 Ordered Acetaminophen [TylenoL] Med 03/31/21 13:09 Ordered 650 mg PO Q6H PRN Acetaminophen/HYDROcodone [[place] 325-5 MG] Med 03/31/21 13:09 Ordered 1 tab PO Q6H PRN Albuterol/Ipratropium [DuoNeb 3.0-0.5 MG/3 ML] Med 03/31/21 13:09 Ordered 3 ml NEB Q4H PRN Aspirin [Halfprin] Med 04/01/21 09:00 Ordered 81 mg PO DAILY Azithromycin [Zithromax] 500 mg Med 03/31/21 13:30 Ordered Sodium Chloride 0.9% [Normal Saline (AdvBag)] 250 ml IV Q24H Docusate Sodium [Colace] Med 03/31/21 13:09 Ordered 100 mg PO BID PRN Furosemide [Lasix] Med 03/31/21 13:30 Ordered 20 mg IVPUSH BID Heparin Sodium Med 03/31/21 13:15 Ordered 5,000 units SUBCUT Q8H Metoprolol Succinate [Toprol XL] Med 03/31/21 21:00 Ordered 50 mg PO BID Morphine Med 03/31/21 13:09 Ordered 2 mg IVPUSH Q4H PRN Multivitamin [Multivitamins] Med 04/01/21 09:00 Ordered 1 tab PO DAILY Pantoprazole Sodium [Protonix] Med 04/01/21 09:00 Ordered 40 mg PO DAILY Promethazine [Phenergan] 12.5 mg Med 03/31/21 13:22 Active Sodium Chloride 0.9% [Normal Saline] 50 ml IV Q6H Rosuvastatin [Crestor] Med 04/01/21 09:00 Ordered 20 mg PO DAILY Sodium Chloride 0.9% [Saline Flush] Med 03/31/21 10:16 Active 10 ml FLUSH ASDIRECTED PRN Spironolactone [Aldactone] Med 04/01/21 09:00 Ordered 25 mg PO DAILY Tamsulosin [Flomax] Med 03/31/21 21:00 Ordered 0.4 mg PO BEDTIME cefTRIAXone [Rocephin] 2 gm Med 03/31/21 13:30 Ordered Sodium Chloride 0.9% [Normal Saline] 100 ml IV Q24H Blood Culture x2 Reflex Set [OM.PC] Stat Oth 03/31/21 10:17 Ordered Peripheral IV Insertion Adult [OM.PC] Stat Oth 03/31/21 10:16 Ordered Resuscitation Status Routine Resus Stat 03/31/21 13:09 Ordered Medication Orders Acetaminophen (Acetaminophen 325 Mg Tab) 650 mg PO Q6H PRN PRN Reason: Pain (Mild 1-3)/fever Hydrocodone Bitart/Acetaminophen (Acetaminophen/Hydrocodone 325-5 Mg Tab) 1 tab PO Q6H PRN PRN Reason: Pain (moderate 4-6) Albuterol/Ipratropium (Albuterol/Ipratropium 3.0-0.5 Mg/3 Ml Neb Soln) 3 ml NEB Q4H PRN PRN Reason: Shortness Of Breath/wheezing Aspirin (Aspirin 81 Mg Tab.Ec) 81 mg PO DAILY ABRAHAM Docusate Sodium (Docusate Sodium 100 Mg Cap) 100 mg PO BID PRN PRN Reason: Constipation Furosemide (Furosemide 20 Mg/2 Ml Vial) 20 mg IVPUSH BIDDIURETIC ABRAHAM Heparin Sodium (Porcine) (Heparin Sodium 5,000 Units/Ml Vial) 5,000 units SUB CUT Q8H ABRAHAM Ceftriaxone Sodium 2 gm/ (Sodium Chloride) 100 mls @ 200 mls/hr IV Q24H ABRAHAM Azithromycin 500 mg/ Sodium (Chloride) 250 mls @ 250 mls/hr IV Q24H ABRAHAM Promethazine HCl 12.5 mg/ (Sodium Chloride) 50.5 mls @ 100 mls/hr IV Q6H PRN PRN Reason: Nausea/Vomiting Metoprolol Succinate (Metoprolol Succinate 50 Mg Tab.Er) 50 mg PO BID [facility] Morphine Sulfate (Morphine 2 Mg/Ml Syringe) 2 mg IVPUSH Q4H PRN PRN Reason: Pain (severe 7-10) Stop: 04/01/21 13:11 Multivitamins/Minerals/Vitamin C (Multivitamin Tab) 1 tab PO DAILY [facility] Pantoprazole Sodium (Pantoprazole 40 Mg Tab.Cr) 40 mg PO ACBREAKFAST [facility] Rosuvastatin Calcium (Rosuvastatin 10 Mg Tab) 20 mg PO DAILY [facility] Sodium Chloride (Sodium Chloride 0.9% 10 Ml Syringe) 10 ml FLUSH ASDIRECTED PRN PRN Reason: Keep Vein Open Last Admin: 03/31/21 11:02 Dose: 10 ml Documented by: DORY Spironolactone (Spironolactone 25 Mg Tab) 25 mg PO DAILY ABRAHAM Tamsulosin HCl (Tamsulosin 0.4 Mg Cap.Er) 0.4 mg PO BEDTIME ABRAHAM Assessment/Plan Comment:: Patient is an 89-year-old male with a history of CHF, anemia, prostate cancer, gout, history of CVA and sleep apnea on CPAP who was brought by EMS to the ER due to worsening shortness of breath, cough, lightheadedness and generalized weakness for 4 to 5 days. Assessment: Acute hypoxic respiratory failure Systolic CHF exacerbation Pneumonia, cap? CAD, s/p stenting Anemia Thrombocytopenia ARCHANA or ARCHANA on CKD, creatinine 1.3 on 01/18/2021 Prostate cancer Gout Hx of CVA Sleep apnea on CPAP Plan: 1. Patient will be admitted as an inpatient to telemetry. 2. Etiology for acute respiratory failure could be due to CHF exacerbation. Pulse ox and oxygen therapy to keep patient oxygen saturation greater than 92% 3. LVEF < 30 on 01/15/2019 when he was admitted to the hospital for CHF exacerbation BNP 25624 Echocardiogram Lasix 40 mg IV was given in the ER Lasix 20 mg IV twice daily Intake and output Daily weight Repeat electrolytes and renal function 4. CXR showed an infiltrate to the right middle lob. I would like to treat his pneumonia as community acquired pneumonia Azithromycin and ceftriaxone Inhalers COVID-19 negative Blood culture and sputum culture 5. Continue aspirin and statin 6. Repeat CBC in morning for anemia and thrombocytopenia 7. Avoid nephrotoxic meds. Repeat the renal function morning 8. Follow with the PCP and oncologist for prostate cancer 9. Allopurinol is on hold due to poor renal function. May resume when kidney function improved 10. Continue CPAP for sleep apnea 11. DVT prophylaxis: Heparin 12. CODE STATUS: Full 13. Disposition: PT OT - Mortality Measure Prognosis:: Poor
[2021-03-31] MEDS: guaiFENesin 100 MG/5 ML Soln 10 ML UD Cup PO PRN ×2 (14:59→22:49)
[2021-03-31] MEDS: Azithromycin 500 MG in Sodium Chloride 0.9% 250 ML IV SCH (15:02)
[2021-03-31] MEDS: Furosemide 20 MG/2 ML VIAL IVPUSH SCH (15:05)
[2021-03-31] MEDS: Heparin Sodium 5,000 Units/ML Vial SUBCUT SCH ×2 (15:12→21:23)
[2021-03-31] MEDS: Albuterol/Ipratropium 3.0-0.5 MG/3 ML Neb Soln NEB PRN (20:18)
[2021-03-31] MEDS: Metoprolol Succinate 50 MG Tab.ER PO SCH (20:34)
[2021-03-31] MEDS: Tamsulosin 0.4 MG Cap.ER PO SCH (20:38)
[2021-04-01] MEDS: Albuterol/Ipratropium 3.0-0.5 MG/3 ML Neb Soln NEB PRN ×4 (06:07→20:12)
[2021-04-01 06:33] LABS: HEMOGLOBIN A1C 6.7 %
[2021-04-01] MEDS: Heparin Sodium 5,000 Units/ML Vial SUBCUT SCH ×3 (06:49→23:03)
[2021-04-01] MEDS: Pantoprazole 40 MG Tab.CR PO SCH (06:50)
[2021-04-01] MEDS: Furosemide 20 MG/2 ML VIAL IVPUSH SCH ×2 (06:50→13:17)
[2021-04-01] MEDS ORDERED: Spironolactone 25 MG Tab PO SCH (09:00)
[2021-04-01] MEDS: Multivitamin Tab PO SCH (09:16)
[2021-04-01] MEDS: Metoprolol Succinate 50 MG Tab.ER PO SCH ×2 (09:16→20:08)
[2021-04-01] MEDS: Aspirin 81 MG Tab.EC PO SCH (09:17)
[2021-04-01] MEDS: Rosuvastatin 10 MG Tab PO SCH (09:17)
--- NOTE | 2021-04-01 09:24 | PCM.PN ---
- General Info Date of Service: 04/01/21 Subjective Update: Overnight no events reported per patient nursing staff, patient is lying in recliner in no acute distress. Patient does have some shortness of breath with ambulation. He is tolerating diuresis well. - Review of Systems General: Reports: No Symptoms HEENT: Reports: No Symptoms Pulmonary: Reports: No Symptoms Cardiovascular: Reports: Dyspnea on Exertion, Edema Gastrointestinal: Reports: No Symptoms Genitourinary: Reports: No Symptoms Musculoskeletal: Reports: No Symptoms - Patient Data Vitals - Most Recent: Last Vital Signs Temp 98.4 F 04/01/21 07:38 Pulse 109 H 04/01/21 09:16 Resp 14 04/01/21 07:38 BP 134/76 04/01/21 09:16 Pulse Ox 97 04/01/21 07:38 Weight - Most Recent: 176 lb 12.8 oz I&O - Last 24 Hours: Intake & Output 03/31/21 04/01/21 04/01/21 22:59 06:59 14:59 Intake Total 710 700 Output Total 200 400 Balance 510 300 Lab Results Last 24 Hours: Laboratory Results - last 24 hr 03/31/21 03/31/21 03/31/21 Range/Units 10:24 10:39 10:39 WBC 7.28 (4.23-9.07) K/mm3 RBC 3.27 L (4.63-6.08) M/mm3 Hgb 9.8 L D (13.7-17.5) gm/dl Hct 32.0 L (40.1-51.0) % MCV 97.9 H D (79.0-92.2) fl MCH 30.0 (25.7-32.2) pg MCHC 30.6 L (32.2-35.5) g/dl RDW Std Deviation 55.7 H (35.1-43.9) fL Plt Count 153 L (163-337) K/mm3 MPV 11.0 (9.4-12.3) fl Neut % (Auto) 86.0 H (34.0-67.9) % Lymph % (Auto) 5.2 L (21.8-53.1) % Coffey % (Auto) 7.6 (5.3-12.2) % Eos % (Auto) 0.8 (0.8-7.0) Baso % (Auto) 0.3 (0.1-1.2) % Neut # (Auto) 6.26 H (1.78-5.38) K/mm3 Lymph # (Auto) 0.38 L (1.32-3.57) K/mm3 Coffey # (Auto) 0.55 (0.30-0.82) K/mm3 Eos # (Auto) 0.06 (0.04-0.54) K/mm3 Baso # (Auto) 0.02 (0.01-0.08) K/mm3 Manual Slide Review Abnormal smear PT 12.3 H (9.7-12.0) SECONDS INR 1.15 APTT 25.9 (21.7-31.4) SECONDS Sodium (136-145) mEq/L Potassium (3.5-5.1) mEq/L Chloride (98-107) mEq/L Carbon Dioxide (21-32) mEq/L Anion Gap (5-15) BUN (7-18) mg/dL Creatinine (0.7-1.3) mg/dL Est Cr Clr Drug Dosing mL/min Estimated GFR (MDRD) (>60) mL/min BUN/Creatinine Ratio (14-18) Glucose (83-115) mg/dL Hemoglobin A1c ( - 5.6) % Lactic Acid (0.4-2.0) mmol/L Calcium (8.5-10.1) mg/dL Magnesium (1.8-2.4) mg/dl Total Bilirubin (0.2-1.0) mg/dL AST (15-37) U/L ALT (16-63) U/L Alkaline Phosphatase (46-116) U/L Troponin I (0.00-0.056) ng/mL C-Reactive Protein (<1.0) mg/dL NT-Pro-B Natriuret Pep (0-450) pg/mL Total Protein (6.4-8.2) g/dl Albumin (3.4-5.0) g/dl Globulin gm/dL Albumin/Globulin Ratio (1-2) SARS-CoV-2 RNA (DONTE) Negative (NEGATIVE) 03/31/21 03/31/21 03/31/21 Range/Units 10:39 10:39 10:39 WBC (4.23-9.07) K/mm3 RBC (4.63-6.08) M/mm3 Hgb (13.7-17.5) gm/dl Hct (40.1-51.0) % MCV (79.0-92.2) fl MCH (25.7-32.2) pg MCHC (32.2-35.5) g/dl RDW Std Deviation (35.1-43.9) fL Plt Count (163-337) K/mm3 MPV (9.4-12.3) fl Neut % (Auto) (34.0-67.9) % Lymph % (Auto) (21.8-53.1) % Coffey % (Auto) (5.3-12.2) % Eos % (Auto) (0.8-7.0) Baso % (Auto) (0.1-1.2) % Neut # (Auto) (1.78-5.38) K/mm3 Lymph # (Auto) (1.32-3.57) K/mm3 Coffey # (Auto) (0.30-0.82) K/mm3 Eos # (Auto) (0.04-0.54) K/mm3 Baso # (Auto) (0.01-0.08) K/mm3 Manual Slide Review PT (9.7-12.0) SECONDS INR APTT (21.7-31.4) SECONDS Sodium 138 (136-145) mEq/L Potassium 4.5 (3.5-5.1) mEq/L Chloride 104 (98-107) mEq/L Carbon Dioxide 22 (21-32) mEq/L Anion Gap 16.5 H (5-15) BUN 39 H (7-18) mg/dL Creatinine 2.1 H (0.7-1.3) mg/dL Est Cr Clr Drug Dosing 19.19 mL/min Estimated GFR (MDRD) 30 (>60) mL/min BUN/Creatinine Ratio 18.6 H (14-18) Glucose 139 H (83-115) mg/dL Hemoglobin A1c ( - 5.6) % Lactic Acid 1.5 (0.4-2.0) mmol/L Calcium 8.5 (8.5-10.1) mg/dL Magnesium (1.8-2.4) mg/dl Total Bilirubin 0.3 (0.2-1.0) mg/dL AST 24 (15-37) U/L ALT 24 (16-63) U/L Alkaline Phosphatase 67 (46-116) U/L Troponin I 0.044 (0.00-0.056) ng/mL C-Reactive Protein 5.1 H* (<1.0) mg/dL NT-Pro-B Natriuret Pep > 19422 H (0-450) pg/mL Total Protein 6.7 (6.4-8.2) g/dl Albumin 3.0 L (3.4-5.0) g/dl Globulin 3.7 gm/dL Albumin/Globulin Ratio 0.8 L (1-2) SARS-CoV-2 RNA (DONTE) (NEGATIVE) 03/31/21 04/01/21 04/01/21 Range/Units 10:39 04:52 04:52 WBC 8.94 (4.23-9.07) K/mm3 RBC 3.07 L (4.63-6.08) M/mm3 Hgb 9.3 L (13.7-17.5) gm/dl Hct 29.8 L (40.1-51.0) % MCV 97.1 H (79.0-92.2) fl MCH 30.3 (25.7-32.2) pg MCHC 31.2 L (32.2-35.5) g/dl RDW Std Deviation 55.6 H (35.1-43.9) fL Plt Count 129 L (163-337) K/mm3 MPV 11.8 (9.4-12.3) fl Neut % (Auto) 79.6 H (34.0-67.9) % Lymph % (Auto) 5.7 L (21.8-53.1) % Coffey % (Auto) 14.1 H (5.3-12.2) % Eos % (Auto) 0.2 L (0.8-7.0) Baso % (Auto) 0.2 (0.1-1.2) % Neut # (Auto) 7.11 H (1.78-5.38) K/mm3 Lymph # (Auto) 0.51 L (1.32-3.57) K/mm3 Coffey # (Auto) 1.26 H (0.30-0.82) K/mm3 Eos # (Auto) 0.02 L (0.04-0.54) K/mm3 Baso # (Auto) 0.02 (0.01-0.08) K/mm3 Manual Slide Review Abnormal smear PT (9.7-12.0) SECONDS INR APTT (21.7-31.4) SECONDS Sodium 140 (136-145) mEq/L Potassium 4.5 (3.5-5.1) mEq/L Chloride 106 (98-107) mEq/L Carbon Dioxide 21 (21-32) mEq/L Anion Gap 17.5 H (5-15) BUN 44 H (7-18) mg/dL Creatinine 2.1 H (0.7-1.3) mg/dL Est Cr Clr Drug Dosing 19.19 mL/min Estimated GFR (MDRD) 30 (>60) mL/min BUN/Creatinine Ratio 21.0 H (14-18) Glucose 133 H (83-115) mg/dL Hemoglobin A1c ( - 5.6) % Lactic Acid (0.4-2.0) mmol/L Calcium 8.3 L (8.5-10.1) mg/dL Magnesium 2.4 (1.8-2.4) mg/dl Total Bilirubin 0.3 (0.2-1.0) mg/dL AST 26 (15-37) U/L ALT 20 (16-63) U/L Alkaline Phosphatase 61 (46-116) U/L Troponin I (0.00-0.056) ng/mL C-Reactive Protein (<1.0) mg/dL NT-Pro-B Natriuret Pep (0-450) pg/mL Total Protein 6.6 (6.4-8.2) g/dl Albumin 3.0 L (3.4-5.0) g/dl Globulin 3.6 gm/dL Albumin/Globulin Ratio 0.8 L (1-2) SARS-CoV-2 RNA (DONTE) (NEGATIVE) 04/01/21 Range/Units 04:52 WBC (4.23-9.07) K/mm3 RBC (4.63-6.08) M/mm3 Hgb (13.7-17.5) gm/dl Hct (40.1-51.0) % MCV (79.0-92.2) fl MCH (25.7-32.2) pg MCHC (32.2-35.5) g/dl RDW Std Deviation (35.1-43.9) fL Plt Count (163-337) K/mm3 MPV (9.4-12.3) fl Neut % (Auto) (34.0-67.9) % Lymph % (Auto) (21.8-53.1) % Coffey % (Auto) (5.3-12.2) % Eos % (Auto) (0.8-7.0) Baso % (Auto) (0.1-1.2) % Neut # (Auto) (1.78-5.38) K/mm3 Lymph # (Auto) (1.32-3.57) K/mm3 Coffey # (Auto) (0.30-0.82) K/mm3 Eos # (Auto) (0.04-0.54) K/mm3 Baso # (Auto) (0.01-0.08) K/mm3 Manual Slide Review PT (9.7-12.0) SECONDS INR APTT (21.7-31.4) SECONDS Sodium (136-145) mEq/L Potassium (3.5-5.1) mEq/L Chloride (98-107) mEq/L Carbon Dioxide (21-32) mEq/L Anion Gap (5-15) BUN (7-18) mg/dL Creatinine (0.7-1.3) mg/dL Est Cr Clr Drug Dosing mL/min Estimated GFR (MDRD) (>60) mL/min BUN/Creatinine Ratio (14-18) Glucose (83-115) mg/dL Hemoglobin A1c 6.7 H ( - 5.6) % Lactic Acid (0.4-2.0) mmol/L Calcium (8.5-10.1) mg/dL Magnesium (1.8-2.4) mg/dl Total Bilirubin (0.2-1.0) mg/dL AST (15-37) U/L ALT (16-63) U/L Alkaline Phosphatase (46-116) U/L Troponin I (0.00-0.056) ng/mL C-Reactive Protein (<1.0) mg/dL NT-Pro-B Natriuret Pep (0-450) pg/mL Total Protein (6.4-8.2) g/dl Albumin (3.4-5.0) g/dl Globulin gm/dL Albumin/Globulin Ratio (1-2) SARS-CoV-2 RNA (DONTE) (NEGATIVE) [place] Results Last 24 Hours: Microbiology 03/31/21 21:00 Gram Stain - Preliminary Sputum - Expectorated Med Orders - Current: Current Medications Acetaminophen (Acetaminophen 325 Mg Tab) 650 mg PO Q6H PRN PRN Reason: Pain (Mild 1-3)/fever Hydrocodone Bitart/Acetaminophen (Acetaminophen/Hydrocodone 325-5 Mg Tab) 1 tab PO Q6H PRN PRN Reason: Pain (moderate 4-6) Last Admin: 04/01/21 00:39 Dose: 1 tab Documented by: Albuterol/Ipratropium (Albuterol/Ipratropium 3.0-0.5 Mg/3 Ml Neb Soln) 3 ml NEB Q4H PRN PRN Reason: Shortness Of Breath/wheezing Last Admin: 04/01/21 06:07 Dose: 3 ml Documented by: Aspirin (Aspirin 81 Mg Tab.Ec) 81 mg PO DAILY [facility] Last Admin: 04/01/21 09:17 Dose: 81 mg Documented by: Docusate Sodium (Docusate Sodium 100 Mg Cap) 100 mg PO BID PRN PRN Reason: Constipation Furosemide (Furosemide 20 Mg/2 Ml Vial) 20 mg IVPUSH BIDDIURETIC [facility] Last Admin: 04/01/21 06:50 Dose: 20 mg Documented by: Guaifenesin (Guaifenesin 100 Mg/5 Ml Soln 10 Ml Ud Cup) 200 mg PO Q6H PRN PRN Reason: Cough Last Admin: 03/31/21 22:49 Dose: 200 mg Documented by: Heparin Sodium (Porcine) (Heparin Sodium 5,000 Units/Ml Vial) 5,000 units SUBCUT Q8H [facility] Last Admin: 04/01/21 06:49 Dose: 5,000 units Documented by: Ceftriaxone Sodium 2 gm/ (Sodium Chloride) 100 mls @ 200 mls/hr IV Q24H [facility] Azithromycin 500 mg/ Sodium (Chloride) 250 mls @ 250 mls/hr IV Q24H [facility] Last Admin: 03/31/21 15:02 Dose: 250 mls/hr Documented by: Promethazine HCl 12.5 mg/ (Sodium Chloride) 50.5 mls @ 100 mls/hr IV Q6H PRN PRN Reason: Nausea/Vomiting Metoprolol Succinate (Metoprolol Succinate 50 Mg Tab.Er) 50 mg PO BID [facility] Last Admin: 04/01/21 09:16 Dose: 50 mg Documented by: Morphine Sulfate (Morphine 2 Mg/Ml Syringe) 2 mg IVPUSH Q4H PRN PRN Reason: Pain (severe 7-10) Stop: 04/01/21 13:11 Multivitamins/Minerals/Vitamin C (Multivitamin Tab) 1 tab PO DAILY [facility] Last Admin: 04/01/21 09:16 Dose: 1 tab Documented by: Pantoprazole Sodium (Pantoprazole 40 Mg Tab.Cr) 40 mg PO ACBREAKFAST [facility] Last Admin: 04/01/21 06:50 Dose: 40 mg Documented by: Rosuvastatin Calcium (Rosuvastatin 10 Mg Tab) 20 mg PO DAILY [facility] Last Admin: 04/01/21 09:17 Dose: 20 mg Documented by: Sodium Chloride (Sodium Chloride 0.9% 10 Ml Syringe) 10 ml FLUSH ASDIRECTED PRN PRN Reason: Keep Vein Open Last Admin: 03/31/21 11:02 Dose: 10 ml Documented by: Tamsulosin HCl (Tamsulosin 0.4 Mg Cap.Er) 0.4 mg PO BEDTIME [facility] Last Admin: 03/31/21 20:38 Dose: 0.4 mg Documented by: Discontinued Medications Sodium Chloride (Normal Saline) 500 mls @ 1,000 mls/hr IV .BOLUS ONE Stop: 03/31/21 10:48 Last Admin: 03/31/21 10:50 Dose: 1,000 mls/hr Documented by: Ceftriaxone Sodium 2 gm/ (Sodium Chloride) 100 mls @ 200 mls/hr IV ONETIME ONE Stop: 03/31/21 12:03 Last Admin: 03/31/21 11:43 Dose: 200 mls/hr Documented by: Spironolactone (Spironolactone 25 Mg Tab) 25 mg PO DAILY [facility] - Exam General: Alert, Oriented HEENT: Pupils Equal Neck: Supple Lungs: Crackles, Wheezing Cardiovascular: Regular Rate, Regular Rhythm, Murmurs (1/6 systolic murmur ) GI/Abdominal Exam: Normal Bowel Sounds, Soft, Non-Tender Extremities: Normal Inspection, Pedal Edema Skin: Warm, Dry, Intact Neurological: Normal Speech Psy/Mental Status: Alert, Normal Affect - Patient Data Lab Results Last 24 hrs: Laboratory Results - last 24 hr 03/31/21 03/31/21 03/31/21 Range/Units 10:24 10:39 10:39 WBC 7.28 (4.23-9.07) K/mm3 RBC 3.27 L (4.63-6.08) M/mm3 Hgb 9.8 L D (13.7-17.5) gm/dl Hct 32.0 L (40.1-51.0) % MCV 97.9 H D (79.0-92.2) fl MCH 30.0 (25.7-32.2) pg MCHC 30.6 L (32.2-35.5) g/dl RDW Std Deviation 55.7 H (35.1-43.9) fL Plt Count 153 L (163-337) K/mm3 MPV 11.0 (9.4-12.3) fl Neut % (Auto) 86.0 H (34.0-67.9) % Lymph % (Auto) 5.2 L (21.8-53.1) % Coffey % (Auto) 7.6 (5.3-12.2) % Eos % (Auto) 0.8 (0.8-7.0) Baso % (Auto) 0.3 (0.1-1.2) % Neut # (Auto) 6.26 H (1.78-5.38) K/mm3 Lymph # (Auto) 0.38 L (1.32-3.57) K/mm3 Coffey # (Auto) 0.55 (0.30-0.82) K/mm3 Eos # (Auto) 0.06 (0.04-0.54) K/mm3 Baso # (Auto) 0.02 (0.01-0.08) K/mm3 Manual Slide Review Abnormal smear PT 12.3 H (9.7-12.0) SECONDS INR 1.15 APTT 25.9 (21.7-31.4) SECONDS Sodium (136-145) mEq/L Potassium (3.5-5.1) mEq/L Chloride (98-107) mEq/L Carbon Dioxide (21-32) mEq/L Anion Gap (5-15) BUN (7-18) mg/dL Creatinine (0.7-1.3) mg/dL Est Cr Clr Drug Dosing mL/min Estimated GFR (MDRD) (>60) mL/min BUN/Creatinine Ratio (14-18) Glucose (83-115) mg/dL Hemoglobin A1c ( - 5.6) % Lactic Acid (0.4-2.0) mmol/L Calcium (8.5-10.1) mg/dL Magnesium (1.8-2.4) mg/dl Total Bilirubin (0.2-1.0) mg/dL AST (15-37) U/L ALT (16-63) U/L Alkaline Phosphatase (46-116) U/L Troponin I (0.00-0.056) ng/mL C-Reactive Protein (<1.0) mg/dL NT-Pro-B Natriuret Pep (0-450) pg/mL Total Protein (6.4-8.2) g/dl Albumin (3.4-5.0) g/dl Globulin gm/dL Albumin/Globulin Ratio (1-2) SARS-CoV-2 RNA (DONTE) Negative (NEGATIVE) 03/31/21 03/31/21 03/31/21 Range/Units 10:39 10:39 10:39 WBC (4.23-9.07) K/mm3 RBC (4.63-6.08) M/mm3 Hgb (13.7-17.5) gm/dl Hct (40.1-51.0) % MCV (79.0-92.2) fl MCH (25.7-32.2) pg MCHC (32.2-35.5) g/dl RDW Std Deviation (35.1-43.9) fL Plt Count (163-337) K/mm3 MPV (9.4-12.3) fl Neut % (Auto) (34.0-67.9) % Lymph % (Auto) (21.8-53.1) % Coffey % (Auto) (5.3-12.2) % Eos % (Auto) (0.8-7.0) Baso % (Auto) (0.1-1.2) % Neut # (Auto) (1.78-5.38) K/mm3 Lymph # (Auto) (1.32-3.57) K/mm3 Coffey # (Auto) (0.30-0.82) K/mm3 Eos # (Auto) (0.04-0.54) K/mm3 Baso # (Auto) (0.01-0.08) K/mm3 Manual Slide Review PT (9.7-12.0) SECONDS INR APTT (21.7-31.4) SECONDS Sodium 138 (136-145) mEq/L Potassium 4.5 (3.5-5.1) mEq/L Chloride 104 (98-107) mEq/L Carbon Dioxide 22 (21-32) mEq/L Anion Gap 16.5 H (5-15) BUN 39 H (7-18) mg/dL Creatinine 2.1 H (0.7-1.3) mg/dL Est Cr Clr Drug Dosing 19.19 mL/min Estimated GFR (MDRD) 30 (>60) mL/min BUN/Creatinine Ratio 18.6 H (14-18) Glucose 139 H (83-115) mg/dL Hemoglobin A1c ( - 5.6) % Lactic Acid 1.5 (0.4-2.0) mmol/L Calcium 8.5 (8.5-10.1) mg/dL Magnesium (1.8-2.4) mg/dl Total Bilirubin 0.3 (0.2-1.0) mg/dL AST 24 (15-37) U/L ALT 24 (16-63) U/L Alkaline Phosphatase 67 (46-116) U/L Troponin I 0.044 (0.00-0.056) ng/mL C-Reactive Protein 5.1 H* (<1.0) mg/dL NT-Pro-B Natriuret Pep > 91365 H (0-450) pg/mL Total Protein 6.7 (6.4-8.2) g/dl Albumin 3.0 L (3.4-5.0) g/dl Globulin 3.7 gm/dL Albumin/Globulin Ratio 0.8 L (1-2) SARS-CoV-2 RNA (DONTE) (NEGATIVE) 03/31/21 04/01/21 04/01/21 Range/Units 10:39 04:52 04:52 WBC 8.94 (4.23-9.07) K/mm3 RBC 3.07 L (4.63-6.08) M/mm3 Hgb 9.3 L (13.7-17.5) gm/dl Hct 29.8 L (40.1-51.0) % MCV 97.1 H (79.0-92.2) fl MCH 30.3 (25.7-32.2) pg MCHC 31.2 L (32.2-35.5) g/dl RDW Std Deviation 55.6 H (35.1-43.9) fL Plt Count 129 L (163-337) K/mm3 MPV 11.8 (9.4-12.3) fl Neut % (Auto) 79.6 H (34.0-67.9) % Lymph % (Auto) 5.7 L (21.8-53.1) % Coffey % (Auto) 14.1 H (5.3-12.2) % Eos % (Auto) 0.2 L (0.8-7.0) Baso % (Auto) 0.2 (0.1-1.2) % Neut # (Auto) 7.11 H (1.78-5.38) K/mm3 Lymph # (Auto) 0.51 L (1.32-3.57) K/mm3 Coffey # (Auto) 1.26 H (0.30-0.82) K/mm3 Eos # (Auto) 0.02 L (0.04-0.54) K/mm3 Baso # (Auto) 0.02 (0.01-0.08) K/mm3 Manual Slide Review Abnormal smear PT (9.7-12.0) SECONDS INR APTT (21.7-31.4) SECONDS Sodium 140 (136-145) mEq/L Potassium 4.5 (3.5-5.1) mEq/L Chloride 106 (98-107) mEq/L Carbon Dioxide 21 (21-32) mEq/L Anion Gap 17.5 H (5-15) BUN 44 H (7-18) mg/dL Creatinine 2.1 H (0.7-1.3) mg/dL Est Cr Clr Drug Dosing 19.19 mL/min Estimated GFR (MDRD) 30 (>60) mL/min BUN/Creatinine Ratio 21.0 H (14-18) Glucose 133 H (83-115) mg/dL Hemoglobin A1c ( - 5.6) % Lactic Acid (0.4-2.0) mmol/L Calcium 8.3 L (8.5-10.1) mg/dL Magnesium 2.4 (1.8-2.4) mg/dl Total Bilirubin 0.3 (0.2-1.0) mg/dL AST 26 (15-37) U/L ALT 20 (16-63) U/L Alkaline Phosphatase 61 (46-116) U/L Troponin I (0.00-0.056) ng/mL C-Reactive Protein (<1.0) mg/dL NT-Pro-B Natriuret Pep (0-450) pg/mL Total Protein 6.6 (6.4-8.2) g/dl Albumin 3.0 L (3.4-5.0) g/dl Globulin 3.6 gm/dL Albumin/Globulin Ratio 0.8 L (1-2) SARS-CoV-2 RNA (DONTE) (NEGATIVE) 04/01/21 Range/Units 04:52 WBC (4.23-9.07) K/mm3 RBC (4.63-6.08) M/mm3 Hgb (13.7-17.5) gm/dl Hct (40.1-51.0) % MCV (79.0-92.2) fl MCH (25.7-32.2) pg MCHC (32.2-35.5) g/dl RDW Std Deviation (35.1-43.9) fL Plt Count (163-337) K/mm3 MPV (9.4-12.3) fl Neut % (Auto) (34.0-67.9) % Lymph % (Auto) (21.8-53.1) % Coffey % (Auto) (5.3-12.2) % Eos % (Auto) (0.8-7.0) Baso % (Auto) (0.1-1.2) % Neut # (Auto) (1.78-5.38) K/mm3 Lymph # (Auto) (1.32-3.57) K/mm3 [place]y # (Auto) (0.30-0.82) K/mm3 Eos # (Auto) (0.04-0.54) K/mm3 Baso # (Auto) (0.01-0.08) K/mm3 Manual Slide Review PT (9.7-12.0) SECONDS INR APTT (21.7-31.4) SECONDS Sodium (136-145) mEq/L Potassium (3.5-5.1) mEq/L Chloride (98-107) mEq/L Carbon Dioxide (21-32) mEq/L Anion Gap (5-15) BUN (7-18) mg/dL Creatinine (0.7-1.3) mg/dL Est Cr Clr Drug Dosing mL/min Estimated GFR (MDRD) (>60) mL/min BUN/Creatinine Ratio (14-18) Glucose (83-115) mg/dL Hemoglobin A1c 6.7 H ( - 5.6) % Lactic Acid (0.4-2.0) mmol/L Calcium (8.5-10.1) mg/dL Magnesium (1.8-2.4) mg/dl Total Bilirubin (0.2-1.0) mg/dL AST (15-37) U/L ALT (16-63) U/L Alkaline Phosphatase (46-116) U/L Troponin I (0.00-0.056) ng/mL C-Reactive Protein (<1.0) mg/dL NT-Pro-B Natriuret Pep (0-450) pg/mL Total Protein (6.4-8.2) g/dl Albumin (3.4-5.0) g/dl Globulin gm/dL Albumin/Globulin Ratio (1-2) SARS-CoV-2 RNA (DONTE) (NEGATIVE) Result Diagrams: 04/01/21 04:52 04/01/21 04:52 [place] Results Last 24 hrs: Microbiology 03/31/21 21:00 Gram Stain - Preliminary Sputum - Expectorated Sepsis Event Note - Evaluation Sepsis Screening Result: No Definite Risk - Focused Exam Vital Signs: Vital Signs Temp Pulse Resp BP Pulse Ox Pulse Ox Pulse Ox 04/01/21 09:16 109 H 134/76 04/01/21 07:38 98.4 F 110 H 14 146/83 H 97 04/01/21 06:07 95 04/01/21 05:59 98 100 04/01/21 03:46 95 20 145/78 H 99 04/01/21 03:00 92 L - Problem List Review Problem List Initiated/Reviewed/Updated: Yes - Assessment Assessment:: Acute Hypoxic Respiratory Failure -Secondary to AECHF, Pneumonia -Ongoing wheezing, ? COPD given history of prior tobacco use Pneumonia -Possible RLL pneumonia -On Rocephin/Azithromycin Acute Exacerbation of CHF -HFREf, Left Vent systolic function 28% on Echo from 01/2019. 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 Ischemic Cardiomyopathy CAD -Hx of PCI Anemia -Hgb 9.3, MCV 97 Thrombocytopenia -Plt 153 -->129 -Normal INR ARCHANA -Cr 2.1, last Cr 01/2019 was 1.3 DM II -A1C 6.7 -Elevated CRP -5.1 HELADIO -CPAP Qhs Gout -No acute flare - Plan Plan:: Plan: -Pulse ox and oxygen therapy to keep patient oxygen saturation greater than 92% -Echocardiogram -Lasix 20 mg IV twice daily -Intake and output -Daily weight -Repeat electrolytes and renal function -Azithromycin and ceftriaxone -DuoNeb prn - Continue aspirin and statin -Avoid nephrotoxic meds. Repeat the renal function morning - Allopurinol is on hold due to poor renal function - Continue CPAP for sleep apnea -DVT prophylaxis: Heparin -CODE STATUS: Full - Disposition: PT OT, suspect can discharge in 24-48 hrs
[2021-04-01] MEDS: cefTRIAXone 2 GM in Sodium Chloride 0.9% 100 ML IV SCH (12:34)
[2021-04-01] MEDS: Azithromycin 500 MG in Sodium Chloride 0.9% 250 ML IV SCH (13:28)
[2021-04-01] MEDS: Tamsulosin 0.4 MG Cap.ER PO SCH (20:08)
[2021-04-02] MEDS: Albuterol/Ipratropium 3.0-0.5 MG/3 ML Neb Soln NEB PRN (04:35)
[2021-04-02] MEDS: Heparin Sodium 5,000 Units/ML Vial SUBCUT SCH ×2 (06:26→14:45)
[2021-04-02] MEDS: Furosemide 20 MG/2 ML VIAL IVPUSH SCH ×2 (06:27→14:48)
[2021-04-02] MEDS: Pantoprazole 40 MG Tab.CR PO SCH (06:30)
--- NOTE | 2021-04-02 07:11 | CR ---
Chest: Portable view of the chest was obtained. Comparison: Prior chest x-ray of 01/18/19. Increased density within the right and left lung bases are noted. This is an interval change from prior exam. Lung markings are slightly increased which are stable. Heart size and mediastinum are also stable. AICD is present. This AICD is an interval change from previous exam. No acute osseous abnormality is appreciated. Impression: 1. Increased density within both lung bases as an interval change from prior exam. Please correlate if patient has symptoms of pneumonia. 2. Interval AICD. 3. Other findings which are stable. Diagnostic code #3
[2021-04-02] MEDS: Rosuvastatin 10 MG Tab PO SCH (08:27)
[2021-04-02] MEDS: Multivitamin Tab PO SCH (08:27)
[2021-04-02] MEDS: Aspirin 81 MG Tab.EC PO SCH (08:27)
[2021-04-02] MEDS: Metoprolol Succinate 50 MG Tab.ER PO SCH (08:28)
[2021-04-02] MEDS ORDERED: Metoprolol Succinate 50 MG Tab.ER PO SCH (09:00)
--- NOTE | 2021-04-02 10:40 | PCM.DCSUM1 ---
Discharge Summary - Hospital Course Free Text/Narrative:: DC Dx: Acute Hypoxic Respiratory Failure Acute Exacerbation of CHF CAD Anemia Thrombocytopenia ARCHANA on CKD DM II -A1C 6.7 HELADIO Hospital course: Mated to secondary acute hypoxemic respiratory failure. The patient and review of his echocardiogram had ejection fraction of approximately 28%. Suspect given history of ischemic heart disease that the patient has ischemic cardiomyopathy. The patient was diuresed with Lasix 20 mg IV twice daily given history of chronic kidney disease. At time of presentation patient serum creatinine was 2.1, he did tolerate diuresis well with improvement in his serum creatinine at time of discharge to 1.9. Hospitalization the patient was continued on ARB and his history of diabetes mellitus as well as heart failure. Patient was empirically treated for a possible middle lobe pneumonia with Rocephin and azith romycin however patient had no increasing oxygen requirement, remained afebrile did not have any leukocytosis. Doubt that the patient clinically has pneumonia. The patient was seen by respiratory therapy as well as physical therapy prior to discharge. On date of discharge the patient was able to ambulate independently with no evidence of acute hypoxic respiratory failure with exertion/ambulation. The patient did not have any complaints at the time of discharge. The patient position was found to be at tachycardic although he remained in rhythm with no evidence of dysrhythmia. Patient was on metoprolol 50 mg p.o. twice daily ever this was increased to metoprolol succinate 100 mg p.o. twice daily at time of discharge. Patient does have AICD in place. Patient's beta-efra was increased to decrease his heart rate and promote diastolic filling, goal heart rate for patient with ischemic heart failure should be in the 60s. HPI Initial Comments: Patient is an 89-year-old male with a history of CHF, anemia, prostate cancer, gout, history of CVA and sleep apnea on CPAP who was brought by EMS to the ER due to worsening shortness of breath, cough, lightheadedness and generalized weakness for 4 to 5 days. Otherwise the patient denies headache, chest pain, abdominal pain, nausea, vomiting, fever, chills, or diarrhea. From his chart, he has a diabetes but patient denies having diabetes. Patient was admitted to the hospital On January 15, 2019 for CHF exacerbation. On the way to the ER, he was found to have low oxygen desaturation. In the ER, chest x-ray showed right middle lobe pneumonia. Diagnosis: Stroke: No Modified [place] Scale: No Symptoms at All Modified [place] Scale Score: 0 - Discharge Data Discharge Date: 04/02/21 Discharge Disposition: Home, Self-Care 01 Condition: Good - Referral to Home Health Primary Care Physician: Johan Khan MD - Discharge Diagnosis/Problem(s) (1) CHF (congestive heart failure) SNOMED Code(s): 72677184 ICD Code: I50.9 - HEART FAILURE, UNSPECIFIED Status: Acute Current Visit: Yes Qualifiers: Heart failure type: systolic Heart failure chronicity: acute on chronic Qualified Code(s): I50.23 - Acute on chronic systolic (congestive) heart failure - Patient Summary/Data Consults: Consultations 03/31/21 13:12 OT Evaluation and Treatment [CONS] Routine PT Evaluation and Treatment [CONS] Routine - Patient Instructions Diet: Heart Healthy Diet Fluid Restriction: 2000 mL Driving: May Drive Today Notify Provider of: Fever, Swelling and Redness, Nausea and/or Vomiting - Discharge Plan *PRESCRIPTION DRUG MONITORING PROGRAM REVIEWED*: No *COPY OF PRESCRIPTION DRUG MONITORING REPORT IN PATIENT MING: No Prescriptions/Med Rec: Metoprolol Succinate 100 mg PO BID #60 Home Medications: Home Meds Benazepril HCl [Lotensin] 10 mg PO DAILY 05/19/14 [History] Tamsulosin [Flomax] 0.4 mg PO BEDTIME 02/26/15 [History] Allopurinol [Zyloprim] 300 mg PO DAILY 07/07/15 [History] Multivitamin [Multivitamins] 1 tab PO DAILY 08/30/15 [History] Pantoprazole Sodium [Protonix] 40 mg PO DAILY 30 Days suspdr.pkt 09/02/15 [Rx] Furosemide [Lasix] 40 mg PO DAILY 06/13/18 [History] predniSONE [Prednisone] 20 mg PO BID PRN 06/13/18 [History] Aspirin [Ecotrin EC] 81 mg PO DAILY 11/26/18 [History] C/Sourcherry/Celery/Grape Seed [Tart Gonzales] 1 cap PO DAILY 11/26/18 [History] Nitroglycerin [Nitrostat] 0.4 mg SL ASDIRECTED PRN 11/26/18 [History] Rosuvastatin [Crestor] 20 mg PO DAILY 03/31/21 [History] Metoprolol Succinate 100 mg PO BID #60 04/02/21 [Rx] Oxygen Therapy Mode: Room Air Patient Handouts: Heart Failure Action Plan, Living With Heart Failure, Heart Failure Exacerbation Forms: ED Department Discharge Referrals: Johan Khan MD [Primary Care Provider] - - Discharge Summary/Plan Comment DC Time >30 min.: Yes - Patient Data Vitals - Most Recent: Last Vital Signs Temp 98.2 F 04/02/21 07:26 Pulse 113 H 04/02/21 08:28 Resp 20 04/02/21 07:26 BP 127/69 04/02/21 08:28 Pulse Ox 94 L 04/02/21 08:24 Weight - Most Recent: 175 lb 9.6 oz I&O - Last 24 hours: Intake & Output 04/01/21 04/02/21 04/02/21 22:59 06:59 14:59 Intake Total 830 400 Output Total 1000 600 Balance -170 -200 Lab Results - Last 24 hrs: Laboratory Results - last 24 hr 04/02/21 04/02/21 Range/Units 05:52 05:52 WBC 9.06 (4.23-9.07) K/mm3 RBC 2.97 L (4.63-6.08) M/mm3 Hgb 8.9 L (13.7-17.5) gm/dl Hct 29.2 L (40.1-51.0) % MCV 98.3 H (79.0-92.2) fl MCH 30.0 (25.7-32.2) pg MCHC 30.5 L (32.2-35.5) g/dl RDW Std Deviation 56.0 H (35.1-43.9) fL Plt Count 149 L (163-337) K/mm3 MPV 11.9 (9.4-12.3) fl Neut % (Auto) 79.6 H (34.0-67.9) % Lymph % (Auto) 6.2 L (21.8-53.1) % [place] % (Auto) 14.0 H (5.3-12.2) % Eos % (Auto) 0 L (0.8-7.0) Baso % (Auto) 0.1 (0.1-1.2) % Neut # (Auto) 7.21 H (1.78-5.38) K/mm3 Lymph # (Auto) 0.56 L (1.32-3.57) K/mm3 [place] # (Auto) 1.27 H (0.30-0.82) K/mm3 Eos # (Auto) 0.00 L (0.04-0.54) K/mm3 Baso # (Auto) 0.01 (0.01-0.08) K/mm3 Manual Slide Review Abnormal smear Sodium 142 (136-145) mEq/L Potassium 3.8 (3.5-5.1) mEq/L Chloride 107 (98-107) mEq/L Carbon Dioxide 24 (21-32) mEq/L Anion Gap 14.8 (5-15) BUN 45 H (7-18) mg/dL Creatinine 1.9 H (0.7-1.3) mg/dL Est Cr Clr Drug Dosing 21.21 mL/min Estimated GFR (MDRD) 34 (>60) mL/min BUN/Creatinine Ratio 23.7 H (14-18) Glucose 139 H (83-115) mg/dL Calcium 8.1 L (8.5-10.1) mg/dL Total Bilirubin 0.3 (0.2-1.0) mg/dL AST 16 (15-37) U/L ALT 20 (16-63) U/L Alkaline Phosphatase 60 (46-116) U/L Total Protein 6.2 L (6.4-8.2) g/dl Albumin 2.7 L (3.4-5.0) g/dl Globulin 3.5 gm/dL Albumin/Globulin Ratio 0.8 L (1-2) ZEYAD Results - Last 24 hrs: Microbiology 03/31/21 21:00 Gram Stain - Final Sputum - Expectorated Sputum Culture - Final 03/31/21 10:49 Aerobic Blood Culture - Preliminary Blood - Venous - Lab Draw NO GROWTH AFTER 1 DAY Anaerobic Blood Culture - Preliminary NO GROWTH AFTER 1 DAY 03/31/21 10:39 Aerobic Blood Culture - Preliminary Blood - Venous NO GROWTH AFTER 1 DAY Anaerobic Blood Culture - Preliminary NO GROWTH AFTER 1 DAY Med Orders - Current: Current Medications Acetaminophen (Acetaminophen 325 Mg Tab) 650 mg PO Q6H PRN PRN Reason: Pain (Mild 1-3)/fever Hydrocodone Bitart/Acetaminophen (Acetaminophen/Hydrocodone 325-5 Mg Tab) 1 tab PO Q6H PRN PRN Reason: Pain (moderate 4-6) Last Admin: 04/01/21 00:39 Dose: 1 tab Documented by: Albuterol/Ipratropium (Albuterol/Ipratropium 3.0-0.5 Mg/3 Ml Neb Soln) 3 ml NEB Q4H PRN PRN Reason: Shortness Of Breath/wheezing Last Admin: 04/02/21 04:35 Dose: 3 ml Documented by: Aspirin (Aspirin 81 Mg Tab.Ec) 81 mg PO DAILY [facility] Last Admin: 04/02/21 08:27 Dose: 81 mg Documented by: Docusate Sodium (Docusate Sodium 100 Mg Cap) 100 mg PO BID PRN PRN Reason: Constipation Furosemide (Furosemide 20 Mg/2 Ml Vial) 20 mg IVPUSH BIDDIURETIC [facility] Last Admin: 04/02/21 06:27 Dose: 20 mg Documented by: Guaifenesin (Guaifenesin 100 Mg/5 Ml Soln 10 Ml Ud Cup) 200 mg PO Q6H PRN PRN Reason: Cough Last Admin: 03/31/21 22:49 Dose: 200 mg Documented by: Heparin Sodium (Porcine) (Heparin Sodium 5,000 Units/Ml Vial) 5,000 units SUBCUT Q8H [facility] Last Admin: 04/02/21 06:26 Dose: 5,000 units Documented by: Ceftriaxone Sodium 2 gm/ (Sodium Chloride) 100 mls @ 200 mls/hr IV Q24H [facility] Last Admin: 04/01/21 12:34 Dose: 200 mls/hr Documented by: Azithromycin 500 mg/ Sodium (Chloride) 250 mls @ 250 mls/hr IV Q24H [facility] Last Admin: 04/01/21 13:28 Dose: 250 mls/hr Documented by: Promethazine HCl 12.5 mg/ (Sodium Chloride) 50.5 mls @ 100 mls/hr IV Q6H PRN PRN Reason: Nausea/Vomiting Metoprolol Succinate (Metoprolol Succinate 50 Mg Tab.Er) 75 mg PO BID [facility] Last Admin: 04/02/21 10:33 Dose: Not Given Documented by: Multivitamins/Minerals/Vitamin C (Multivitamin Tab) 1 tab PO DAILY [facility] Last Admin: 04/02/21 08:27 Dose: 1 tab Documented by: Pantoprazole Sodium (Pantoprazole 40 Mg Tab.Cr) 40 mg PO ACBREAKFAST [facility] Last Admin: 04/02/21 06:30 Dose: 40 mg Documented by: Rosuvastatin Calcium (Rosuvastatin 10 Mg Tab) 20 mg PO DAILY [facility] Last Admin: 04/02/21 08:27 Dose: 20 mg Documented by: Sodium Chloride (Sodium Chloride 0.9% 10 Ml Syringe) 10 ml FLUSH ASDIRECTED PRN PRN Reason: Keep Vein Open Last Admin: 03/31/21 11:02 Dose: 10 ml Documented by: Tamsulosin HCl (Tamsulosin 0.4 Mg Cap.Er) 0.4 mg PO BEDTIME [facility] Last Admin: 04/01/21 20:08 Dose: 0.4 mg Documented by: Discontinued Medications Sodium Chloride (Normal Saline) 500 mls @ 1,000 mls/hr IV .BOLUS ONE Stop: 03/31/21 10:48 Last Admin: 03/31/21 10:50 Dose: 1,000 mls/hr Documented by: Ceftriaxone Sodium 2 gm/ (Sodium Chloride) 100 mls @ 200 mls/hr IV ONETIME ONE Stop: 03/31/21 12:03 Last Admin: 03/31/21 11:43 Dose: 200 mls/hr Documented by: Metoprolol Succinate (Metoprolol Succinate 50 Mg Tab.Er) 50 mg PO BID [facility] Last Admin: 04/02/21 08:28 Dose: 50 mg Documented by: Morphine Sulfate (Morphine 2 Mg/Ml Syringe) 2 mg IVPUSH Q4H PRN PRN Reason: Pain (severe 7-10) Stop: 04/01/21 13:11 Spironolactone (Spironolactone 25 Mg Tab) 25 mg PO DAILY [facility]
[2021-04-02] MEDS: cefTRIAXone 2 GM in Sodium Chloride 0.9% 100 ML IV SCH (11:49)
[2021-04-02 12:39] VITALS: BP 142/83; PULSE 104
== END 2021-04-02 14:55 | disposition home or self-care (01) | DRG 291 ==
LOC: JD.ED 09:57 → JD.MS 12:39
PROVIDERS: ADMIT Internal Medicine; ATTEND Internal Medicine
DX: J18.9 Pneumonia, unspecified organism (principal); I13.0 Hypertensive heart and chronic kidney disease with heart failure and stage 1 through stage 4 chronic kidney disease, or unspecified chronic kidney disease; I50.23 Acute on chronic systolic (congestive) heart failure; H91.93 Unspecified hearing loss, bilateral; J96.01 Acute respiratory failure with hypoxia; N17.9 Acute kidney failure, unspecified; I25.10 Atherosclerotic heart disease of native coronary artery without angina pectoris; D64.9 Anemia, unspecified; D69.6 Thrombocytopenia, unspecified; N18.9 Chronic kidney disease, unspecified; E11.22 Type 2 diabetes mellitus with diabetic chronic kidney disease; G47.33 Obstructive sleep apnea (adult) (pediatric); I25.5 Ischemic cardiomyopathy; I50.9 Heart failure, unspecified; M10.9 Gout, unspecified; Z88.6 Allergy status to analgesic agent; H54.7 Unspecified visual loss; H91.90 Unspecified hearing loss, unspecified ear; E78.00 Pure hypercholesterolemia, unspecified; K21.9 Gastro-esophageal reflux disease without esophagitis; N40.0 Benign prostatic hyperplasia without lower urinary tract symptoms; M19.90 Unspecified osteoarthritis, unspecified site; Z98.49 Cataract extraction status, unspecified eye; Z95.5 Presence of coronary angioplasty implant and graft; Z87.442 Personal history of urinary calculi; Z88.1 Allergy status to other antibiotic agents; Z97.4 Presence of external hearing-aid; I25.2 Old myocardial infarction; Z85.46 Personal history of malignant neoplasm of prostate; Z95.810 Presence of automatic (implantable) cardiac defibrillator; Z86.73 Personal history of transient ischemic attack (TIA), and cerebral infarction without residual deficits; Z79.52 Long term (current) use of systemic steroids; Z79.899 Other long term (current) drug therapy; Z79.82 Long term (current) use of aspirin; Z88.5 Allergy status to narcotic agent; Z20.822 Contact with and (suspected) exposure to COVID-19
CPT/HCPCS: 36415; 71045; 80053; 83605; 83735; 83880; 84484; 85025; 85610; 85730; 86140; 87040 ×2; 93005; 96365; 99285; J0696; J7030; U0002; 83036; 87070; 87205; 93010; 93306; 94640; 94762; 97162-GP; 99284; A9270-GY; J0456; J1644; J1940; J7050; J7620-GY

== ENCOUNTER 2021-04-08 07:31 | Inpatient (IN) | payer MEDICARE, OTHER ==
[2021-04-08] MEDS ORDERED: Sodium Chloride 0.9% 10 ML Syringe FLUSH PRN (08:18)
--- NOTE | 2021-04-08 08:34 | PCM.SN.2 ---
- Free Text/Narrative Note: 04/08/21 -[phone] IV started times 1 attempt 20 guage right forearm. Flushes well. GustavoNA
[2021-04-08] MEDS ORDERED: Pantoprazole 40 MG Vial IVPUSH ONE (08:39)
--- NOTE | 2021-04-08 08:53 | EDM.PDOC ---
ED HPI GENERAL MEDICAL PROBLEM - General Chief Complaint: Gastrointestinal Problem Stated Complaint: BLOOD IN STOOL Time Seen by Provider: 04/08/21 08:00 Source of Information: Reports: Patient, Family (), RN Notes Reviewed - History of Present Illness INITIAL COMMENTS - FREE TEXT/NARRATIVE: 89 yr old male with onset of "black tarry looking" diarrhea about 4 to 5 days ago. Just discharged home days ago from hospitalization for pneumonia/CHF. He was treated with IV rocephin and zithromax in the hospital but did not go home on abx. He did recieve lovenox injections while in the hospital. He a pparently had an episode or episodes of a fib while in the hospital. He had a follow up visit with his Regulator Inspector this past 3 days ago who prescribed and started him on eliquis at that time. His states his stools were black even before it was prescribed or started. Has not ever had GI bleeding in the past. No nausea or vomiting. Has been eating but having many episodes of above described diarrhea daily for the last few days. No current chest pain or difficulty breathing. Occasional cough but much improved from a week ago. Neck Pain Score (Numeric/FACES): 7 - Related Data Allergies Allergy/AdvReac Type Severity Reaction Status Date / Time No Known Allergies Allergy Verified 04/08/21 07:49 Home Meds: Home Meds Benazepril HCl [Lotensin] 10 mg PO DAILY 05/19/14 [History] Tamsulosin [Flomax] 0.4 mg PO BEDTIME 02/26/15 [History] Allopurinol [Zyloprim] 300 mg PO DAILY 07/07/15 [History] Multivitamin [Multivitamins] 1 tab PO DAILY 08/30/15 [History] Pantoprazole Sodium [Protonix] 40 mg PO DAILY 30 Days suspdr.pkt 09/02/15 [Rx] Furosemide [Lasix] 40 mg PO DAILY 06/13/18 [History] predniSONE [Prednisone] 20 mg PO BID PRN 06/13/18 [History] Aspirin [Ecotrin EC] 81 mg PO DAILY 11/26/18 [History] C/Sourcherry/Celery/Grape Seed [Tart Gonzales] 1 cap PO DAILY 11/26/18 [History] Nitroglycerin [Nitrostat] 0.4 mg SL ASDIRECTED PRN 11/26/18 [History] Rosuvastatin [Crestor] 20 mg PO DAILY 03/31/21 [History] Metoprolol Succinate 100 mg PO BID #60 tab.er.24h 04/02/21 [Rx] Apixaban [Eliquis] 2.5 mg PO BID 04/08/21 [History] Past Medical History HEENT History: Reports: Hard of Hearing, Impaired Vision Other HEENT History: Bilateral hearing aids, glasses, upper/lower partial dentures Cardiovascular History: Reports: CAD, Heart Failure, High Cholesterol, Hypertension, [place] Respiratory History: Reports: Sleep Apnea Other Respiratory History: cpap used at home Gastrointestinal History: Reports: GERD, Hemorrhoids Genitourinary History: Reports: BPH, Chronic Renal Insuffiency, Renal Calculus Other Genitourinary History: Prostate cancer - seeds implanted. Musculoskeletal History: Reports: Gout, Osteoarthritis Neurological History: Reports: CVA Other Neuro History: no residual affect -improved with therapy Endocrine/Metabolic History: Reports: Diabetes, Type II Oncologic (Cancer) History: Reports: Prostate Other Oncologic History: seeds implanted - Infectious Disease History Infectious Disease History: Reports: None - Past Surgical History HEENT Surgical History: Reports: Cataract Surgery Other HEENT Surgeries/Procedures: bi-lat Cardiovascular Surgical History: Reports: Carotid Endarterectomy, Coronary Artery Stent GI Surgical History: Reports: Colonoscopy, Hernia, Inguinal Male Surgical History: Reports: Other (See Below) Other Male Surgeries/Procedures: prostate cancer - seeds Social & Family History - Family History Family Medical History: No Pertinent Family History - Tobacco Use Tobacco Use Status *Q: Never Tobacco User - Caffeine Use Caffeine Use: Reports: Coffee Other Caffeine Use: 3 cups/day - Living Situation & Occupation Living situation: Reports: , with Spouse Occupation: Retired ED ROS GENERAL - Review of Systems Review Of Systems: See Below Constitutional: Denies: Fever, Chills, Diaphoresis HEENT: Reports: No Symptoms Respiratory: Reports: Cough (improving). Denies: Shortness of Breath Cardiovascular: Reports: Lightheadedness (occasional when standing). Denies: Chest Pain GI/Abdominal: Reports: Diarrhea, Melena (frequent dark watery stools for at least the last few days). Denies: Abdominal Pain, Nausea, Vomiting Musculoskeletal: Denies: Back Pain, Leg Pain Skin: Reports: No Symptoms Neurological: Reports: Weakness (mild generalized). Denies: Trouble Speaking ED EXAM, GI/ABD - Physical Exam Exam: See Below General Appearance: Alert, No Apparent Distress Eyes: Bilateral: Normal Appearance Throat/Mouth: Normal Inspection Head: Atraumatic Neck: Supple Respiratory/Chest: No Respiratory Distress, Lungs Clear, Normal Breath Sounds Cardiovascular: Regular Rate, Rhythm, Systolic Murmur GI/Abdominal Exam: Soft, Non-Tender, Distended (mild). No: Guarding Rectal (Males) Exam: Heme + Stool (dark brown/black, moderately heme pos) Extremities: Normal Inspection, Pedal Edema (trace bilat). No: Leg Pain, Increased Warmth, Redness Skin Exam: Warm, Dry, Normal Color #1 Interpretation EKG Date: 04/08/21 Rhythm: Other (atrial paced rythm) Rate (Beats/Min): 82 [place]: Normal P-Wave: Present QRS: Other (q waves inf. leads) Course - Vital Signs Last Recorded V/S: Last Vital Signs Temp 97.2 F 04/08/21 07:45 Pulse 81 04/08/21 07:45 Resp 20 04/08/21 07:45 BP 128/71 04/08/21 07:45 Pulse Ox 97 04/08/21 07:45 - Orders/Labs/Meds Orders: Active Orders 24 hr Category Date Time Status EKG 12 Lead [EKG Documentation Completion] [RC] STAT Care 04/08/21 08:20 Active Peripheral IV Care [RC] . DIRECTED Care 04/08/21 08:20 Active C DIFFICILE PCR W/REFLEX [MOLEC] Stat Lab 04/08/21 09:29 Ordered Lactated Ringers [Ringers, Lactated] 1,000 ml Med 04/08/21 10:45 Active IV ASDIRECTED Sodium Chloride 0.9% [Saline Flush] Med 04/08/21 08:18 Active 10 ml FLUSH ASDIRECTED PRN Peripheral IV Insertion Adult [OM.PC] Stat Oth 04/08/21 08:20 Ordered Medication Orders Lactated Ringer's (Ringers, Lactated) 1,000 mls @ 150 mls/hr IV ASDIRECTED ABRAHAM Last Admin: 04/08/21 10:41 Dose: 150 mls/hr Documented by: SCHMKAT Sodium Chloride (Sodium Chloride 0.9% 10 Ml Syringe) 10 ml FLUSH ASDIRECTED PRN PRN Reason: Keep Vein Open Last Admin: 04/08/21 08:33 Dose: 10 ml Documented by: RONAN Labs: Laboratory Tests 04/08/21 04/08/21 04/08/21 Range/Units 08:30 08:30 08:30 WBC 9.01 (4.23-9.07) K/mm3 RBC 3.00 L (4.63-6.08) M/mm3 Hgb 8.7 L (13.7-17.5) gm/dl Hct 28.1 L (40.1-51.0) % MCV 93.7 H D (79.0-92.2) fl MCH 29.0 (25.7-32.2) pg MCHC 31.0 L (32.2-35.5) g/dl RDW Std Deviation 54.0 H (35.1-43.9) fL Plt Count 217 (163-337) K/mm3 MPV 11.1 (9.4-12.3) fl Neut % (Auto) 81.1 H (34.0-67.9) % Lymph % (Auto) 6.5 L (21.8-53.1) % [place] % (Auto) 10.3 (5.3-12.2) % Eos % (Auto) 1.8 (0.8-7.0) Baso % (Auto) 0.2 (0.1-1.2) % Neut # (Auto) 7.30 H (1.78-5.38) K/mm3 Lymph # (Auto) 0.59 L (1.32-3.57) K/mm3 [place] # (Auto) 0.93 H (0.30-0.82) K/mm3 Eos # (Auto) 0.16 (0.04-0.54) K/mm3 Baso # (Auto) 0.02 (0.01-0.08) K/mm3 Manual Slide Review Abnormal smear PT 13.6 H (9.7-12.0) SECONDS INR 1.28 APTT 32.5 H (21.7-31.4) SECONDS Sodium 141 (136-145) mEq/L Potassium 4.2 (3.5-5.1) mEq/L Chloride 106 (98-107) mEq/L Carbon Dioxide 23 (21-32) mEq/L Anion Gap 16.2 H (5-15) BUN 88 H D (7-18) mg/dL Creatinine 2.6 H (0.7-1.3) mg/dL Est Cr Clr Drug Dosing 15.50 mL/min Estimated GFR (MDRD) 23 (>60) mL/min BUN/Creatinine Ratio 33.8 H (14-18) Glucose 135 H (83-115) mg/dL Calcium 8.0 L (8.5-10.1) mg/dL Total Bilirubin 0.3 (0.2-1.0) mg/dL AST 55 H (15-37) U/L ALT 93 H (16-63) U/L Alkaline Phosphatase 101 (46-116) U/L Total Protein 6.0 L (6.4-8.2) g/dl Albumin 2.5 L (3.4-5.0) g/dl Globulin 3.5 gm/dL Albumin/Globulin Ratio 0.7 L (1-2) SARS-CoV-2 RNA (DONTE) (NEGATIVE) Blood Type Gel Antibody Screen 04/08/21 04/08/21 Range/Units 08:30 09:07 WBC (4.23-9.07) K/mm3 RBC (4.63-6.08) M/mm3 Hgb (13.7-17.5) gm/dl Hct (40.1-51.0) % MCV (79.0-92.2) fl MCH (25.7-32.2) pg MCHC (32.2-35.5) g/dl RDW Std Deviation (35.1-43.9) fL Plt Count (163-337) K/mm3 MPV (9.4-12.3) fl Neut % (Auto) (34.0-67.9) % Lymph % (Auto) (21.8-53.1) % [place] % (Auto) (5.3-12.2) % Eos % (Auto) (0.8-7.0) Baso % (Auto) (0.1-1.2) % Neut # (Auto) (1.78-5.38) K/mm3 Lymph # (Auto) (1.32-3.57) K/mm3 [place] # (Auto) (0.30-0.82) K/mm3 Eos # (Auto) (0.04-0.54) K/mm3 Baso # (Auto) (0.01-0.08) K/mm3 Manual Slide Review PT (9.7-12.0) SECONDS INR APTT (21.7-31.4) SECONDS Sodium (136-145) mEq/L Potassium (3.5-5.1) mEq/L Chloride (98-107) mEq/L Carbon Dioxide (21-32) mEq/L Anion Gap (5-15) BUN (7-18) mg/dL Creatinine (0.7-1.3) mg/dL Est Cr Clr Drug Dosing mL/min Estimated GFR (MDRD) (>60) mL/min BUN/Creatinine Ratio (14-18) Glucose (83-115) mg/dL Calcium (8.5-10.1) mg/dL Total Bilirubin (0.2-1.0) mg/dL AST (15-37) U/L ALT (16-63) U/L Alkaline Phosphatase (46-116) U/L Total Protein (6.4-8.2) g/dl Albumin (3.4-5.0) g/dl Globulin gm/dL Albumin/Globulin Ratio (1-2) SARS-CoV-2 RNA (DONTE) Negative (NEGATIVE) Blood Type A POSITIVE Gel Antibody Screen Negative Meds: Medications Generic Name Dose Route Start Last Admin Trade Name Freq PRN Reason Stop Dose Admin Lactated Ringer's 1,000 mls @ 150 mls/hr 04/08/21 10:45 04/08/21 10:41 Ringers, Lactated IV 150 mls/hr ASDIRECTED ABRAHAM Administration Sodium Chloride 10 ml 04/08/21 08:18 04/08/21 08:33 Sodium Chloride 0.9% 10 Ml Syringe FLUSH 10 ml ASDIRECTED PRN Administration Keep Vein Open Discontinued Medications Generic Name Dose Route Start Last Admin Trade Name Freq PRN Reason Stop Dose Admin Pantoprazole Sodium 40 mg 04/08/21 08:39 04/08/21 08:56 Pantoprazole 40 Mg Vial IVPUSH 04/08/21 08:40 40 mg ONETIME ONE Administration Departure - Departure Time of Disposition: 09:31 Disposition: Refer to Observation Condition: Serious Clinical Impression: Renal insufficiency GI bleed Qualifiers: GI bleed type/associated pathology: unspecified gastrointestinal hemorrhage type Qualified Code(s): K92.2 - Gastrointestinal hemorrhage, unspecified Diarrhea Qualifiers: Diarrhea type: unspecified type Qualified Code(s): R19.7 - Diarrhea, unspecified - Discharge Information Referrals: Johan Khan MD [Primary Care Provider] - Forms: ED Department Discharge Sepsis Event Note (ED) - Evaluation Sepsis Screening Result: No Definite Risk - Focused Exam Vital Signs: Vital Signs Temp Pulse Resp BP Pulse Ox 04/08/21 07:45 97.2 F 81 20 128/71 97 ED Communication - Discussed Case With (1) Discussed Case With (1): Admitting Provider (decision to admit at about 0940) - My Orders Last 24 Hours: My Active Orders 04/08/21 08:18 Sodium Chloride 0.9% [Saline Flush] 10 ml FLUSH ASDIRECTED PRN 04/08/21 08:20 EKG 12 Lead [EKG Documentation Completion] [RC] STAT Peripheral IV Care [RC] . DIRECTED Peripheral IV Insertion Adult [OM.PC] Stat 04/08/21 09:29 C DIFFICILE PCR W/REFLEX [MOLEC] Stat 04/08/21 10:45 Lactated Ringers [Ringers, Lactated] 1,000 ml IV ASDIRECTED - Assessment/Plan Last 24 Hours: My Active Orders 04/08/21 08:18 Sodium Chloride 0.9% [Saline Flush] 10 ml FLUSH ASDIRECTED PRN 04/08/21 08:20 EKG 12 Lead [EKG Documentation Completion] [RC] STAT Peripheral IV Care [RC] . DIRECTED Peripheral IV Insertion Adult [OM.PC] Stat 04/08/21 09:29 C DIFFICILE PCR W/REFLEX [MOLEC] Stat 04/08/21 10:45 Lactated Ringers [Ringers, Lactated] 1,000 ml IV ASDIRECTED
[2021-04-08] MEDS ORDERED: Lactated Ringers 1,000 ML IV SCH (10:45)
[2021-04-08] MEDS ORDERED: Morphine 2 MG/ML SYRINGE IVPUSH PRN (11:54)
[2021-04-08] MEDS ORDERED: Acetaminophen 325 MG Tab PO PRN (11:54)
[2021-04-08] MEDS ORDERED: Promethazine 12.5 MG in Sodium Chloride 0.9% 50 ML IV PRN (11:54)
[2021-04-08] MEDS ORDERED: Albuterol/Ipratropium 3.0-0.5 MG/3 ML Neb Soln NEB PRN (11:54)
[2021-04-08] MEDS ORDERED: traMADol 50 MG Tab PO PRN (12:00)
[2021-04-08] MEDS ORDERED: hydrALAZINE 20 MG/ML SDV IVPUSH PRN (12:04)
--- NOTE | 2021-04-08 12:11 | PCM.HP.2 ---
H&P History of Present Illness - General Date of Service: 04/08/21 Admit Problem/Dx: Admission Diagnosis/Problem Admission Diagnosis/Problem Hemorrhage of colon Source of Information: Patient, Other (his chart) - History of Present Illness Initial Comments - Free Text/Narative: Patient is an 89-year-old male with a history of CHF, anemia, prostate cancer, gout, history of CVA and sleep apnea on CPAP who presented to the ER due black stool. Patient was admitted to our hospital on March 31, 2021 due to CHF exacerbation and possible pneumonia. In the hospital, he was found to have atrial fibrillation for which he was treated with therapeutic Lovenox. He was discharged from the hospital on April 02 (Friday). He saw his photographer apprentice on (4 days ago) who initiated Eliquis for him. As per , he has been having black stool for 4 to 5 days. No history of GI bleeding. Otherwise he denies headache, dizziness, chest pain, abdominal pain, nausea, vomiting, or dysuria. In the ER, hemoglobin 8.3. General surgeon Dr. Key was consulted. Neck Pain Score (Numeric/FACES): 7 - Related Data Allergies/Adverse Reactions: Allergies Allergy/AdvReac Type Severity Reaction Status Date / Time No Known Allergies Allergy Verified 04/08/21 07:49 Home Medications: Home Meds Benazepril HCl [Lotensin] 10 mg PO DAILY 05/19/14 [History] Tamsulosin [Flomax] 0.4 mg PO BEDTIME 02/26/15 [History] Allopurinol [Zyloprim] 300 mg PO DAILY 07/07/15 [History] Multivitamin [Multivitamins] 1 tab PO DAILY 08/30/15 [History] Pantoprazole Sodium [Protonix] 40 mg PO DAILY 30 Days suspdr.pkt 09/02/15 [Rx] Furosemide [Lasix] 40 mg PO DAILY 06/13/18 [History] predniSONE [Prednisone] 20 mg PO BID PRN 06/13/18 [History] Aspirin [Ecotrin EC] 81 mg PO DAILY 11/26/18 [History] C/Sourcherry/Celery/Grape Seed [Tart [place]] 1 cap PO DAILY 11/26/18 [History] Nitroglycerin [Nitrostat] 0.4 mg SL ASDIRECTED PRN 11/26/18 [History] Rosuvastatin [Crestor] 20 mg PO DAILY 03/31/21 [History] Metoprolol Succinate 100 mg PO BID #60 tab.er.24h 04/02/21 [Rx] Apixaban [Eliquis] 2.5 mg PO BID 04/08/21 [History] Past Medical History HEENT History: Reports: Hard of Hearing, Impaired Vision Other HEENT History: Bilateral hearing aids, glasses, upper/lower partial dentures Cardiovascular History: Reports: CAD, Heart Failure, High Cholesterol, Hypertension, AR Respiratory History: Reports: Sleep Apnea Other Respiratory History: cpap used at home Gastrointestinal History: Reports: GERD, Hemorrhoids Genitourinary History: Reports: BPH, Chronic Renal Insuffiency, Renal Calculus Other Genitourinary History: Prostate cancer - seeds implanted. Musculoskeletal History: Reports: Gout, Osteoarthritis Neurological History: Reports: CVA Other Neuro History: no residual affect -improved with therapy Endocrine/Metabolic History: Reports: Diabetes, Type II Oncologic (Cancer) History: Reports: Prostate Other Oncologic History: seeds implanted - Infectious Disease History Infectious Disease History: Reports: None - Past Surgical History HEENT Surgical History: Reports: Cataract Surgery Other HEENT Surgeries/Procedures: bi-lat Cardiovascular Surgical History: Reports: Carotid Endarterectomy, Coronary Artery Stent GI Surgical History: Reports: Colonoscopy, Hernia, Inguinal Male Surgical History: Reports: Other (See Below) Other Male Surgeries/Procedures: prostate cancer - seeds Social & Family History - Family History Family Medical History: No Pertinent Family History (Denies genetic diseases in the family) - Tobacco Use Tobacco Use Status *Q: Never Tobacco User - Caffeine Use Caffeine Use: Reports: Coffee Other Caffeine Use: 3 cups/day - Living Situation & Occupation Living situation: Reports: , with Spouse Occupation: Retired H&P Review of Systems - Review of Systems: Review Of Systems: See Below General: Reports: No Symptoms HEENT: Reports: No Symptoms Pulmonary: Reports: Shortness of Breath, Cough Cardiovascular: Reports: No Symptoms Gastrointestinal: Reports: Black Stool Genitourinary: Reports: No Symptoms Musculoskeletal: Reports: No Symptoms Skin: Reports: No Symptoms Psychiatric: Reports: No Symptoms Neurological: Reports: No Symptoms Hematologic/Lymphatic: Reports: No Symptoms Immunologic: Reports: No Symptoms Exam - Exam Exam: See Below - Vital Signs Vital Signs: Last Vital Signs Temp 36.2 C 04/08/21 07:45 Pulse 81 04/08/21 07:45 Resp 20 04/08/21 07:45 BP 128/71 04/08/21 07:45 Pulse Ox 97 04/08/21 07:45 Weight: 76.657 kg - Exam General: Alert, Oriented, Cooperative HEENT: Conjunctiva Clear, EOMI, Pupils Equal, Pupils Reactive Neck: Supple, Trachea Midline, Full Range of Motion Lungs: Decreased Breath Sounds, Wheezing (Mild expiratory wheezing bilateral) Cardiovascular: Irregular Rhythm GI/Abdominal Exam: Normal Bowel Sounds, Soft, Non-Tender, No Organomegaly Extremities: Normal Inspection, Normal Range of Motion, Non-Tender, Pedal Edema (1+) Skin: Warm, Dry, Intact Neurological: Cranial Nerves Intact, Reflexes Equal Bilateral, Strength Equal Bilateral, Normal Speech, Normal Tone, Sensation Intact Neuro Extensive - Mental Status: Alert, Oriented x3, Normal Mood/Affect Psychiatric: Normal Mood - Patient Data Lab Results Last 24 hrs: Laboratory Results - last 24 hr 04/08/21 04/08/21 04/08/21 Range/Units 08:30 08:30 08:30 WBC 9.01 (4.23-9.07) K/mm3 RBC 3.00 L (4.63-6.08) M/mm3 Hgb 8.7 L (13.7-17.5) gm/dl Hct 28.1 L (40.1-51.0) % MCV 93.7 H D (79.0-92.2) fl MCH 29.0 (25.7-32.2) pg MCHC 31.0 L (32.2-35.5) g/dl RDW Std Deviation 54.0 H (35.1-43.9) fL Plt Count 217 (163-337) K/mm3 MPV 11.1 (9.4-12.3) fl Neut % (Auto) 81.1 H (34.0-67.9) % Lymph % (Auto) 6.5 L (21.8-53.1) % [place] % (Auto) 10.3 (5.3-12.2) % Eos % (Auto) 1.8 (0.8-7.0) Baso % (Auto) 0.2 (0.1-1.2) % Neut # (Auto) 7.30 H (1.78-5.38) K/mm3 Lymph # (Auto) 0.59 L (1.32-3.57) K/mm3 [place] # (Auto) 0.93 H (0.30-0.82) K/mm3 Eos # (Auto) 0.16 (0.04-0.54) K/mm3 Baso # (Auto) 0.02 (0.01-0.08) K/mm3 Manual Slide Review Abnormal smear PT 13.6 H (9.7-12.0) SECONDS INR 1.28 APTT 32.5 H (21.7-31.4) SECONDS Sodium 141 (136-145) mEq/L Potassium 4.2 (3.5-5.1) mEq/L Chloride 106 (98-107) mEq/L Carbon Dioxide 23 (21-32) mEq/L Anion Gap 16.2 H (5-15) BUN 88 H D (7-18) mg/dL Creatinine 2.6 H (0.7-1.3) mg/dL Est Cr Clr Drug Dosing 15.50 mL/min Estimated GFR (MDRD) 23 (>60) mL/min BUN/Creatinine Ratio 33.8 H (14-18) Glucose 135 H (83-115) mg/dL Calcium 8.0 L (8.5-10.1) mg/dL Total Bilirubin 0.3 (0.2-1.0) mg/dL AST 55 H (15-37) U/L ALT 93 H (16-63) U/L Alkaline Phosphatase 101 (46-116) U/L Total Protein 6.0 L (6.4-8.2) g/dl Albumin 2.5 L (3.4-5.0) g/dl Globulin 3.5 gm/dL Albumin/Globulin Ratio 0.7 L (1-2) SARS-CoV-2 RNA (DONTE) (NEGATIVE) Blood Type Gel Antibody Screen 04/08/21 04/08/21 Range/Units 08:30 09:07 WBC (4.23-9.07) K/mm3 RBC (4.63-6.08) M/mm3 Hgb (13.7-17.5) gm/dl Hct (40.1-51.0) % MCV (79.0-92.2) fl MCH (25.7-32.2) pg MCHC (32.2-35.5) g/dl RDW Std Deviation (35.1-43.9) fL Plt Count (163-337) K/mm3 MPV (9.4-12.3) fl Neut % (Auto) (34.0-67.9) % Lymph % (Auto) (21.8-53.1) % [place] % (Auto) (5.3-12.2) % Eos % (Auto) (0.8-7.0) Baso % (Auto) (0.1-1.2) % Neut # (Auto) (1.78-5.38) K/mm3 Lymph # (Auto) (1.32-3.57) K/mm3 [place] # (Auto) (0.30-0.82) K/mm3 Eos # (Auto) (0.04-0.54) K/mm3 Baso # (Auto) (0.01-0.08) K/mm3 Manual Slide Review PT (9.7-12.0) SECONDS INR APTT (21.7-31.4) SECONDS Sodium (136-145) mEq/L Potassium (3.5-5.1) mEq/L Chloride (98-107) mEq/L Carbon Dioxide (21-32) mEq/L Anion Gap (5-15) BUN (7-18) mg/dL Creatinine (0.7-1.3) mg/dL Est Cr Clr Drug Dosing mL/min Estimated GFR (MDRD) (>60) mL/min BUN/Creatinine Ratio (14-18) Glucose (83-115) mg/dL Calcium (8.5-10.1) mg/dL Total Bilirubin (0.2-1.0) mg/dL AST (15-37) U/L ALT (16-63) U/L Alkaline Phosphatase (46-116) U/L Total Protein (6.4-8.2) g/dl Albumin (3.4-5.0) g/dl Globulin gm/dL Albumin/Globulin Ratio (1-2) SARS-CoV-2 RNA (DONTE) Negative (NEGATIVE) Blood Type A POSITIVE Gel Antibody Screen Negative Result Diagrams: 04/08/21 08:30 04/08/21 08:30 Sepsis Event Note - Evaluation Sepsis Screening Result: No Definite Risk - Focused Exam Vital Signs: Vital Signs Temp Pulse Resp BP Pulse Ox 04/08/21 07:45 36.2 C 81 20 128/71 97 Problem List Initiated/Reviewed/Updated: Yes Orders Last 24hrs: Active Orders 24 hr Category Date Time Status Admission Status [Patient Status] [ADT] Routine ADT 04/08/21 11:44 Active Ambulate [RC] ASDIRECTED Care 04/08/21 11:54 Ordered Antiembolic Devices [RC] PER UNIT ROUTINE Care 04/08/21 11:56 Ordered Cardiac Monitoring [RC] CONTINUOUS Care 04/08/21 11:55 Ordered EKG 12 Lead [EKG Documentation Completion] [RC] STAT Care 04/08/21 08:20 Active Height and Weight [RC] DAILY Care 04/08/21 11:54 Ordered Intake and Output [RC] QSHIFT Care 04/08/21 11:55 Ordered Oxygen Therapy [RC] PRN Care 04/08/21 11:54 Ordered Peripheral IV Care [RC] . DIRECTED Care 04/08/21 08:20 Active Pulse Oximetry [RC] CONTINUOUS Care 04/08/21 11:55 Ordered RT Aerosol Therapy [RC] ASDIRECTED Care 04/08/21 11:57 Ordered VTE/DVT Education [RC] PER UNIT ROUTINE Care 04/08/21 11:54 Ordered Vital Signs [RC] Q4H Care 04/08/21 11:54 Ordered Clear Liquid Diet [DIET] Diet 04/08/21 Lunch Ordered C DIFFICILE PCR W/REFLEX [MOLEC] Stat Lab 04/08/21 09:29 Ordered CBC WITH AUTO DIFF [HEME] DAILY Lab 04/09/21 05:00 Ordered CBC WITH AUTO DIFF [HEME] DAILY Lab 04/10/21 05:00 Ordered CBC WITH AUTO DIFF [HEME] DAILY Lab 04/11/21 05:00 Ordered CBC WITH AUTO DIFF [HEME] DAILY Lab 04/12/21 05:00 Ordered CBC WITH AUTO DIFF [HEME] DAILY Lab 04/13/21 05:00 Ordered CBC WITH AUTO DIFF [HEME] Routine Lab 04/08/21 18:00 Ordered COMPREHENSIVE METABOLIC PN,CMP [CHEM] DAILY Lab 04/09/21 05:00 Ordered COMPREHENSIVE METABOLIC PN,CMP [CHEM] DAILY Lab 04/10/21 05:00 Ordered COMPREHENSIVE METABOLIC PN,CMP [CHEM] DAILY Lab 04/11/21 05:00 Ordered COMPREHENSIVE METABOLIC PN,CMP [CHEM] DAILY Lab 04/12/21 05:00 Ordered COMPREHENSIVE METABOLIC PN,CMP [CHEM] DAILY Lab 04/13/21 05:00 Ordered MAGNESIUM [CHEM] Routine Lab 04/09/21 05:00 Ordered PTT,PARTIAL THROMBOPLSTIN TIME [COAG] Routine Lab 04/09/21 05:00 Ordered TROPONIN I [CHEM] Routine Lab 04/09/21 05:00 Ordered Acetaminophen [TylenoL] Med 04/08/21 11:54 Ordered 650 mg PO Q6H PRN Albuterol/Ipratropium [DuoNeb 3.0-0.5 MG/3 ML] Med 04/08/21 11:54 Ordered 3 ml NEB Q4H PRN Lactated Ringers [Ringers, Lactated] 1,000 ml Med 04/08/21 10:45 Stop Req IV ASDIRECTED Metoprolol Succinate [Toprol XL] Med 04/08/21 12:15 Ordered 100 mg PO BID Morphine Med 04/08/21 11:54 Ordered 2 mg IVPUSH Q4H PRN Pantoprazole Sodium [Protonix] Med 04/08/21 12:15 Ordered 40 mg PO DAILY Promethazine [Phenergan] 12.5 mg Med 04/08/21 11:54 Ordered Sodium Chloride 0.9% [Normal Saline] 50 ml IV Q6H Rosuvastatin [Crestor] Med 04/08/21 12:15 Ordered 20 mg PO DAILY Sodium Chloride 0.9% [Saline Flush] Med 04/08/21 08:18 Active 10 ml FLUSH ASDIRECTED PRN Tamsulosin [Flomax] Med 04/08/21 21:00 Ordered 0.4 mg PO BEDTIME hydrALAZINE [Apresoline] Med 04/08/21 12:04 Ordered 10 mg IVPUSH Q4H PRN methylPREDNISolone Sod Succ [Solu-MEDROL] Med 04/08/21 12:00 Ordered 40 mg IVPUSH Q8H traMADol [Ultram] Med 04/08/21 12:00 Ordered 50 mg PO Q6H PRN Peripheral IV Insertion Adult [OM.PC] Stat Oth 04/08/21 08:20 Ordered Sequential Compression Device [OM.PC] Per Unit Routine Oth 04/08/21 11:55 Ordered Resuscitation Status Routine Resus Stat 04/08/21 11:54 Ordered Medication Orders Acetaminophen (Acetaminophen 325 Mg Tab) 650 mg PO Q6H PRN PRN Reason: Pain (Mild 1-3)/fever Albuterol/Ipratropium (Albuterol/Ipratropium 3.0-0.5 Mg/3 Ml Neb Soln) 3 ml NEB Q4H PRN PRN Reason: Shortness Of Breath/wheezing Hydralazine HCl (Hydralazine 20 Mg/Ml Sdv) 10 mg IVPUSH Q4H PRN PRN Reason: Hypertension Lactated Ringer's (Ringers, Lactated) 1,000 mls @ 150 mls/hr IV ASDIRECTED ABRAHAM Last Admin: 04/08/21 10:41 Dose: 150 mls/hr Documented by: CHRISTIANO Promethazine HCl 12.5 mg/ (Sodium Chloride) 50.5 mls @ 100 mls/hr IV Q6H PRN PRN Reason: Nausea/Vomiting Methylprednisolone Sodium Succinate (Methylprednisolone Sodium Succinate 40 Mg/1 Ml Sdv) 40 mg IVPUSH Q8H [facility] Metoprolol Succinate (Metoprolol Succinate 50 Mg Tab.Er) 100 mg PO BID [facility] Morphine Sulfate (Morphine 2 Mg/Ml Syringe) 2 mg IVPUSH Q4H PRN PRN Reason: Pain (severe 7-10) Stop: 04/09/21 11:56 Non-Formulary Medication (Pantoprazole Sodium [Protonix]) 40 mg PO DAILY [facility] Rosuvastatin Calcium (Rosuvastatin 10 Mg Tab) 20 mg PO DAILY [facility] Sodium Chloride (Sodium Chloride 0.9% 10 Ml Syringe) 10 ml FLUSH ASDIRECTED PRN PRN Reason: Keep Vein Open Last Admin: 04/08/21 08:33 Dose: 10 ml Documented by: RONAN Tamsulosin HCl (Tamsulosin 0.4 Mg Cap.Er) 0.4 mg PO BEDTIME [facility]RAHAM Tramadol HCl (Tramadol 50 Mg Tab) 50 mg PO Q6H PRN PRN Reason: Pain (moderate 4-6) Assessment/Plan Comment:: Patient is an 89-year-old male with a history of CHF, anemia, prostate cancer, gout, history of CVA and sleep apnea on CPAP who presented to the ER due black stool. Assessment: GI bleeding -possibly Lovenox and Eliquis induced -Hemoglobin 8.3 in the ER -No history of GI bleeding -BUN/creatinine ratio 33.8, possible upper GI bleeding -Vital signs are stable Acute blood loss on chronic anemia -Hb 8.7 today. 8.9 on 04/02/2021 -MCV 93.7, MCHC 35.0 -Platelets 217 Systolic CHF -LVEF approximately 28% on January 15, 2019 when he was admitted to the hospital for CHF exacerbation. -AICD in place -May have mild volume overload CAD, status post stenting -Continue statin -Aspirin is on hold due to GI bleeding ARCHANA or ARCHANA on CKD, -Creatinine 2.6 on admission today -creatinine 1.3 on January 18, 2021 -Has been on Lasix including home lasix 40mg dialy Prostate cancer -Follow with the PCP and oncologist/urologist Gout -Allopurinol is on hold due to poor renal function. It will be resumed when renal function improved Transaminitis -total bilirubin 0.3, Alk phos 101 -Could be due to cardiohepatic syndrome History of CVA Sleep apnea on CPAP -Continue statin -Continue CPAP Plan: 1. Clear liquid. Repeat HH in 12 hours. Pantoprazole 40 mg daily Aspirin and Eliquis are on hold General surgeon Dr. Key is on board 2. Monitor HH. Will transfuse him if hemoglobin <7.0 3. Avoid nephrotoxic meds. benazepril is on hold. Repeat the renal function in morning 4. Repeat liver function in morning 5. Continue home CPAP. DVT prophylaxis: SCD. No pharmacological DVT prophylaxis due to GI bleeding. CODE STATUS: Full Disposition: Possibly 1 or 2 days - Mortality Measure Prognosis:: Good
[2021-04-08] MEDS: methylPREDNISolone Sodium Succinate 40 MG/1 ML SDV IVPUSH SCH ×2 (13:37→20:11)
[2021-04-08] MEDS: METOPROLOL SUCCINATE 100 MG PO SCH ×2 (13:38→20:11)
--- NOTE | 2021-04-08 16:41 | PCM.SN.2 ---
- Free Text/Narrative Note: Pt was found to have non-sustained VT this afternoon. His troponin came back, 0.088 and mag 2.6. He denies having cheat pain. Vital signs are acceptable. SVEN Bingham and I met pt and family in his room. I explained his condition. Pt would like to stay to have medical treatment and not like to be transferred to higher level hospital for further workup and treatment. Family was in agreement with him. Pt would also like to maintain full code. Lipitor 40mg daily. I did not order aspirin or plavix considering his bleeding status.
[2021-04-08] MEDS: Tamsulosin 0.4 MG Cap.ER *PT OWN MED PO SCH (17:45)
[2021-04-08] MEDS ORDERED: Rosuvastatin 20 MG Tab *PT OWN MED PO SCH (18:00)
[2021-04-08] MEDS: atorvaSTATin 40 MG Tab PO SCH (20:11)
[2021-04-09] MEDS: methylPREDNISolone Sodium Succinate 40 MG/1 ML SDV IVPUSH SCH ×3 (04:50→20:16)
[2021-04-09] MEDS ORDERED: PANTOPRAZOLE 40 MG PO SCH (06:00)
[2021-04-09] MEDS: METOPROLOL SUCCINATE 100 MG PO SCH ×2 (08:17→20:16)
--- NOTE | 2021-04-09 15:27 | PCM.PN ---
- General Info Date of Service: 04/09/21 Admission Dx/Problem (Free Text): Admission Diagnosis/Problem Admission Diagnosis/Problem Hemorrhage of colon Subjective Update: Patient is an 89-year-old male with a history of CHF, anemia, prostate cancer, gout, history of CVA and sleep apnea on CPAP who presented to the ER due black stool. Patient feels fine. Patient had black watery diarrhea x 4 last night. Denies chest pain, nausea, vomiting, or dizziness. He is on room air. Hemoglobin 9.1, platelets 2 3 Creatinine 2.2 Mag 2.7 Troponin 0.088, 0.066, 0.077, 0.060 - Review of Systems Systems Review Comment:: General: Reports: No Symptoms HEENT: Reports: No Symptoms Pulmonary: Reports: Shortness of Breath, Cough Cardiovascular: Reports: No Symptoms Gastrointestinal: Reports: Black Stool Genitourinary: Reports: No Symptoms Musculoskeletal: Reports: No Symptoms Skin: Reports: No Symptoms Psychiatric: Reports: No Symptoms Neurological: Reports: No Symptoms Hematologic/Lymphatic: Reports: No Symptoms Immunologic: Reports: No Symptoms - Patient Data Vitals - Most Recent: Last Vital Signs Temp 36.9 C 04/09/21 11:57 Pulse 74 04/09/21 11:57 Resp 14 04/09/21 11:57 BP 108/66 04/09/21 11:57 Pulse Ox 95 04/09/21 14:00 Weight - Most Recent: 80.739 kg I&O - Last 24 Hours: Intake & Output 04/09/21 04/09/21 04/09/21 06:59 14:59 22:59 Intake Total 500 600 Output Total 400 Balance 100 600 Lab Results Last 24 Hours: Laboratory Results - last 24 hr 04/08/21 04/08/21 04/08/21 Range/Units 08:30 08:30 18:05 WBC 9.01 8.22 (4.23-9.07) K/mm3 RBC 3.00 L 3.15 L (4.63-6.08) M/mm3 Hgb 8.7 L 9.3 L (13.7-17.5) gm/dl Hct 28.1 L 29.7 L (40.1-51.0) % MCV 93.7 H D 94.3 H (79.0-92.2) fl MCH 29.0 29.5 (25.7-32.2) pg MCHC 31.0 L 31.3 L (32.2-35.5) g/dl RDW Std Deviation 54.0 H 54.7 H (35.1-43.9) fL Plt Count 217 223 (163-337) K/mm3 MPV 11.1 10.9 (9.4-12.3) fl Neut % (Auto) 81.1 H 95.2 H (34.0-67.9) % Lymph % (Auto) 6.5 L 2.3 L (21.8-53.1) % [place] % (Auto) 10.3 2.2 L (5.3-12.2) % Eos % (Auto) 1.8 0.1 L (0.8-7.0) Baso % (Auto) 0.2 0.1 (0.1-1.2) % Neut # (Auto) 7.30 H 7.82 H (1.78-5.38) K/mm3 Lymph # (Auto) 0.59 L 0.19 L (1.32-3.57) K/mm3 [place] # (Auto) 0.93 H 0.18 L (0.30-0.82) K/mm3 Eos # (Auto) 0.16 0.01 L (0.04-0.54) K/mm3 Baso # (Auto) 0.02 0.01 (0.01-0.08) K/mm3 Manual Slide Review Abnormal smear Abnormal smear APTT (21.7-31.4) SECONDS Sodium (136-145) mEq/L Potassium (3.5-5.1) mEq/L Chloride (98-107) mEq/L Carbon Dioxide (21-32) mEq/L Anion Gap (5-15) BUN (7-18) mg/dL Creatinine (0.7-1.3) mg/dL Est Cr Clr Drug Dosing mL/min Estimated GFR (MDRD) (>60) mL/min BUN/Creatinine Ratio (14-18) Glucose (83-115) mg/dL Calcium (8.5-10.1) mg/dL Magnesium 2.6 H (1.8-2.4) mg/dl Total Bilirubin (0.2-1.0) mg/dL AST (15-37) U/L ALT (16-63) U/L Alkaline Phosphatase (46-116) U/L Troponin I 0.088 H* (0.00-0.056) ng/mL Total Protein (6.4-8.2) g/dl Albumin (3.4-5.0) g/dl Globulin gm/dL Albumin/Globulin Ratio (1-2) C.difficile 027-NAP1-B1 C. difficile Tox (PCR) 04/08/21 04/09/21 04/09/21 Range/Units 22:00 05:35 05:35 WBC 4.88 (4.23-9.07) K/mm3 RBC 3.11 L (4.63-6.08) M/mm3 Hgb 9.1 L (13.7-17.5) gm/dl Hct 29.4 L (40.1-51.0) % MCV 94.5 H (79.0-92.2) fl MCH 29.3 (25.7-32.2) pg MCHC 31.0 L (32.2-35.5) g/dl RDW Std Deviation 54.6 H (35.1-43.9) fL Plt Count 203 (163-337) K/mm3 MPV 11.5 (9.4-12.3) fl Neut % (Auto) 90.7 H (34.0-67.9) % Lymph % (Auto) 6.4 L (21.8-53.1) % [place] % (Auto) 2.7 L (5.3-12.2) % Eos % (Auto) 0 L (0.8-7.0) Baso % (Auto) 0.0 L (0.1-1.2) % Neut # (Auto) 4.43 (1.78-5.38) K/mm3 Lymph # (Auto) 0.31 L (1.32-3.57) K/mm3 [place] # (Auto) 0.13 L (0.30-0.82) K/mm3 Eos # (Auto) 0.00 L (0.04-0.54) K/mm3 Baso # (Auto) 0.00 L (0.01-0.08) K/mm3 Manual Slide Review Abnormal smear APTT 30.0 (21.7-31.4) SECONDS Sodium (136-145) mEq/L Potassium (3.5-5.1) mEq/L Chloride (98-107) mEq/L Carbon Dioxide (21-32) mEq/L Anion Gap (5-15) BUN (7-18) mg/dL Creatinine (0.7-1.3) mg/dL Est Cr Clr Drug Dosing mL/min Estimated GFR (MDRD) (>60) mL/min BUN/Creatinine Ratio (14-18) Glucose (83-115) mg/dL Calcium (8.5-10.1) mg/dL Magnesium (1.8-2.4) mg/dl Total Bilirubin (0.2-1.0) mg/dL AST (15-37) U/L ALT (16-63) U/L Alkaline Phosphatase (46-116) U/L Troponin I 0.066 H* (0.00-0.056) ng/mL Total Protein (6.4-8.2) g/dl Albumin (3.4-5.0) g/dl Globulin gm/dL Albumin/Globulin Ratio (1-2) C.difficile 027-NAP1-B1 C. difficile Tox (PCR) 04/09/21 04/09/21 04/09/21 Range/Units 05:35 11:34 14:00 WBC (4.23-9.07) K/mm3 RBC (4.63-6.08) M/mm3 Hgb (13.7-17.5) gm/dl Hct (40.1-51.0) % MCV (79.0-92.2) fl MCH (25.7-32.2) pg MCHC (32.2-35.5) g/dl RDW Std Deviation (35.1-43.9) fL Plt Count (163-337) K/mm3 MPV (9.4-12.3) fl Neut % (Auto) (34.0-67.9) % Lymph % (Auto) (21.8-53.1) % [place] % (Auto) (5.3-12.2) % Eos % (Auto) (0.8-7.0) Baso % (Auto) (0.1-1.2) % Neut # (Auto) (1.78-5.38) K/mm3 Lymph # (Auto) (1.32-3.57) K/mm3 [place] # (Auto) (0.30-0.82) K/mm3 Eos # (Auto) (0.04-0.54) K/mm3 Baso # (Auto) (0.01-0.08) K/mm3 Manual Slide Review APTT (21.7-31.4) SECONDS Sodium 142 (136-145) mEq/L Potassium 4.6 (3.5-5.1) mEq/L Chloride 107 (98-107) mEq/L Carbon Dioxide 23 (21-32) mEq/L Anion Gap 16.6 H (5-15) BUN 71 H (7-18) mg/dL Creatinine 2.2 H (0.7-1.3) mg/dL Est Cr Clr Drug Dosing 18.32 mL/min Estimated GFR (MDRD) 28 (>60) mL/min BUN/Creatinine Ratio 32.3 H (14-18) Glucose 187 H (83-115) mg/dL Calcium 8.2 L (8.5-10.1) mg/dL Magnesium 2.7 H (1.8-2.4) mg/dl Total Bilirubin 0.4 (0.2-1.0) mg/dL AST 32 (15-37) U/L ALT 77 H (16-63) U/L Alkaline Phosphatase 92 (46-116) U/L Troponin I 0.077 H* 0.060 H* (0.00-0.056) ng/mL Total Protein 6.1 L (6.4-8.2) g/dl Albumin 2.5 L (3.4-5.0) g/dl Globulin 3.6 gm/dL Albumin/Globulin Ratio 0.7 L (1-2) C.difficile 027-NAP1-B1 Presumptive negative C. difficile Tox (PCR) Negative Med Orders - Current: Current Medications Acetaminophen (Acetaminophen 325 Mg Tab) 650 mg PO Q6H PRN PRN Reason: Pain (Mild 1-3)/fever Albuterol/Ipratropium (Albuterol/Ipratropium 3.0-0.5 Mg/3 Ml Neb Soln) 3 ml NEB Q4H PRN PRN Reason: Shortness Of Breath/wheezing Last Admin: 04/08/21 14:31 Dose: 3 ml Documented by: Atorvastatin Calcium (Atorvastatin 40 Mg Tab) 40 mg PO BEDTIME [facility] Last Admin: 04/08/21 20:11 Dose: 40 mg Documented by: Hydralazine HCl (Hydralazine 20 Mg/Ml Sdv) 10 mg IVPUSH Q4H PRN PRN Reason: Hypertension Promethazine HCl 12.5 mg/ (Sodium Chloride) 50.5 mls @ 100 mls/hr IV Q6H PRN PRN Reason: Nausea/Vomiting Methylprednisolone Sodium Succinate (Methylprednisolone Sodium Succinate 40 Mg/1 Ml Sdv) 40 mg IVPUSH Q8H [facility] Last Admin: 04/09/21 12:10 Dose: 40 mg Documented by: Metoprolol Succinate 100 Mg Tab.Er *Pt Own Med* 0 each PO BID [facility] Last Admin: 04/09/21 08:17 Dose: 1 each Documented by: Pantoprazole 40 Mg (Tab *Pt Own Med*) 0 each PO ACBREAKFAST [facility] Last Admin: 04/09/21 07:05 Dose: 1 each Documented by: Tamsulosin 0.4 Mg (Cap.Er *Pt Own Med*) 0 each PO DAILY@1800 [facility] Last Admin: 04/08/21 17:45 Dose: 1 each Documented by: Sodium Chloride (Sodium Chloride 0.9% 10 Ml Syringe) 10 ml FLUSH ASDIRECTED PRN PRN Reason: Keep Vein Open Last Admin: 04/08/21 08:33 Dose: 10 ml Documented by: Tramadol HCl (Tramadol 50 Mg Tab) 50 mg PO Q6H PRN PRN Reason: Pain (moderate 4-6) Discontinued Medications Lactated Ringer's (Ringers, Lactated) 1,000 mls @ 150 mls/hr IV ASDIRECTED [facility] Last Admin: 04/08/21 10:41 Dose: 150 mls/hr Documented by: Morphine Sulfate (Morphine 2 Mg/Ml Syringe) 2 mg IVPUSH Q4H PRN PRN Reason: Pain (severe 7-10) Stop: 04/09/21 11:56 Pantoprazole Sodium (Pantoprazole 40 Mg Vial) 40 mg IVPUSH ONETIME ONE Stop: 04/08/21 08:40 Last Admin: 04/08/21 08:56 Dose: 40 mg Documented by: Rosuvastatin 20 Mg (Tab *Pt Own Med*) 0 each PO DAILY@1800 [facility] - Exam Physical Findings Comments:: General: Alert, Oriented, Cooperative HEENT: Conjunctiva Clear, EOMI, Pupils Equal, Pupils Reactive Neck: Supple, Trachea Midline, Full Range of Motion Lungs: Decreased Breath Sounds, Wheezing (Mild expiratory wheezing bilateral) Cardiovascular: Irregular Rhythm GI/Abdominal Exam: Normal Bowel Sounds, Soft, Non-Tender, No Organomegaly Extremities: Normal Inspection, Normal Range of Motion, Non-Tender, Pedal Edema (1+) Skin: Warm, Dry, Intact Neurological: Cranial Nerves Intact, Reflexes Equal Bilateral, Strength Equal Bilateral, Normal Speech, Normal Tone, Sensation Intact Neuro Extensive - Mental Status: Alert, Oriented x3, Normal Mood/Affect Psychiatric: Normal Mood - Patient Data Lab Results Last 24 hrs: Laboratory Results - last 24 hr 04/08/21 04/08/21 04/08/21 Range/Units 08:30 08:30 18:05 WBC 9.01 8.22 (4.23-9.07) K/mm3 RBC 3.00 L 3.15 L (4.63-6.08) M/mm3 Hgb 8.7 L 9.3 L (13.7-17.5) gm/dl Hct 28.1 L 29.7 L (40.1-51.0) % MCV 93.7 H D 94.3 H (79.0-92.2) fl MCH 29.0 29.5 (25.7-32.2) pg MCHC 31.0 L 31.3 L (32.2-35.5) g/dl RDW Std Deviation 54.0 H 54.7 H (35.1-43.9) fL Plt Count 217 223 (163-337) K/mm3 MPV 11.1 10.9 (9.4-12.3) fl Neut % (Auto) 81.1 H 95.2 H (34.0-67.9) % Lymph % (Auto) 6.5 L 2.3 L (21.8-53.1) % [place] % (Auto) 10.3 2.2 L (5.3-12.2) % Eos % (Auto) 1.8 0.1 L (0.8-7.0) Baso % (Auto) 0.2 0.1 (0.1-1.2) % Neut # (Auto) 7.30 H 7.82 H (1.78-5.38) K/mm3 Lymph # (Auto) 0.59 L 0.19 L (1.32-3.57) K/mm3 [place] # (Auto) 0.93 H 0.18 L (0.30-0.82) K/mm3 Eos # (Auto) 0.16 0.01 L (0.04-0.54) K/mm3 Baso # (Auto) 0.02 0.01 (0.01-0.08) K/mm3 Manual Slide Review Abnormal smear Abnormal smear APTT (21.7-31.4) SECONDS Sodium (136-145) mEq/L Potassium (3.5-5.1) mEq/L Chloride (98-107) mEq/L Carbon Dioxide (21-32) mEq/L Anion Gap (5-15) BUN (7-18) mg/dL Creatinine (0.7-1.3) mg/dL Est Cr Clr Drug Dosing mL/min Estimated GFR (MDRD) (>60) mL/min BUN/Creatinine Ratio (14-18) Glucose (83-115) mg/dL Calcium (8.5-10.1) mg/dL Magnesium 2.6 H (1.8-2.4) mg/dl Total Bilirubin (0.2-1.0) mg/dL AST (15-37) U/L ALT (16-63) U/L Alkaline Phosphatase (46-116) U/L Troponin I 0.088 H* (0.00-0.056) ng/mL Total Protein (6.4-8.2) g/dl Albumin (3.4-5.0) g/dl Globulin gm/dL Albumin/Globulin Ratio (1-2) C.difficile 027-NAP1-B1 C. difficile Tox (PCR) 04/08/21 04/09/21 04/09/21 Range/Units 22:00 05:35 05:35 WBC 4.88 (4.23-9.07) K/mm3 RBC 3.11 L (4.63-6.08) M/mm3 Hgb 9.1 L (13.7-17.5) gm/dl Hct 29.4 L (40.1-51.0) % MCV 94.5 H (79.0-92.2) fl MCH 29.3 (25.7-32.2) pg MCHC 31.0 L (32.2-35.5) g/dl RDW Std Deviation 54.6 H (35.1-43.9) fL Plt Count 203 (163-337) K/mm3 MPV 11.5 (9.4-12.3) fl Neut % (Auto) 90.7 H (34.0-67.9) % Lymph % (Auto) 6.4 L (21.8-53.1) % [place] % (Auto) 2.7 L (5.3-12.2) % Eos % (Auto) 0 L (0.8-7.0) Baso % (Auto) 0.0 L (0.1-1.2) % Neut # (Auto) 4.43 (1.78-5.38) K/mm3 Lymph # (Auto) 0.31 L (1.32-3.57) K/mm3 [place] # (Auto) 0.13 L (0.30-0.82) K/mm3 Eos # (Auto) 0.00 L (0.04-0.54) K/mm3 Baso # (Auto) 0.00 L (0.01-0.08) K/mm3 Manual Slide Review Abnormal smear APTT 30.0 (21.7-31.4) SECONDS Sodium (136-145) mEq/L Potassium (3.5-5.1) mEq/L Chloride (98-107) mEq/L Carbon Dioxide (21-32) mEq/L Anion Gap (5-15) BUN (7-18) mg/dL Creatinine (0.7-1.3) mg/dL Est Cr Clr Drug Dosing mL/min Estimated GFR (MDRD) (>60) mL/min BUN/Creatinine Ratio (14-18) Glucose (83-115) mg/dL Calcium (8.5-10.1) mg/dL Magnesium (1.8-2.4) mg/dl Total Bilirubin (0.2-1.0) mg/dL AST (15-37) U/L ALT (16-63) U/L Alkaline Phosphatase (46-116) U/L Troponin I 0.066 H* (0.00-0.056) ng/mL Total Protein (6.4-8.2) g/dl Albumin (3.4-5.0) g/dl Globulin gm/dL Albumin/Globulin Ratio (1-2) C.difficile 027-NAP1-B1 C. difficile Tox (PCR) 04/09/21 04/09/21 04/09/21 Range/Units 05:35 11:34 14:00 WBC (4.23-9.07) K/mm3 RBC (4.63-6.08) M/mm3 Hgb (13.7-17.5) gm/dl Hct (40.1-51.0) % MCV (79.0-92.2) fl MCH (25.7-32.2) pg MCHC (32.2-35.5) g/dl RDW Std Deviation (35.1-43.9) fL Plt Count (163-337) K/mm3 MPV (9.4-12.3) fl Neut % (Auto) (34.0-67.9) % Lymph % (Auto) (21.8-53.1) % [place] % (Auto) (5.3-12.2) % Eos % (Auto) (0.8-7.0) Baso % (Auto) (0.1-1.2) % Neut # (Auto) (1.78-5.38) K/mm3 Lymph # (Auto) (1.32-3.57) K/mm3 [place] # (Auto) (0.30-0.82) K/mm3 Eos # (Auto) (0.04-0.54) K/mm3 Baso # (Auto) (0.01-0.08) K/mm3 Manual Slide Review APTT (21.7-31.4) SECONDS Sodium 142 (136-145) mEq/L Potassium 4.6 (3.5-5.1) mEq/L Chloride 107 (98-107) mEq/L Carbon Dioxide 23 (21-32) mEq/L Anion Gap 16.6 H (5-15) BUN 71 H (7-18) mg/dL Creatinine 2.2 H (0.7-1.3) mg/dL Est Cr Clr Drug Dosing 18.32 mL/min Estimated GFR (MDRD) 28 (>60) mL/min BUN/Creatinine Ratio 32.3 H (14-18) Glucose 187 H (83-115) mg/dL Calcium 8.2 L (8.5-10.1) mg/dL Magnesium 2.7 H (1.8-2.4) mg/dl Total Bilirubin 0.4 (0.2-1.0) mg/dL AST 32 (15-37) U/L ALT 77 H (16-63) U/L Alkaline Phosphatase 92 (46-116) U/L Troponin I 0.077 H* 0.060 H* (0.00-0.056) ng/mL Total Protein 6.1 L (6.4-8.2) g/dl Albumin 2.5 L (3.4-5.0) g/dl Globulin 3.6 gm/dL Albumin/Globulin Ratio 0.7 L (1-2) C.difficile 027-NAP1-B1 Presumptive negative C. difficile Tox (PCR) Negative Result Diagrams: 04/09/21 05:35 04/09/21 05:35 Sepsis Event Note - Evaluation Sepsis Screening Result: No Definite Risk - Focused Exam Vital Signs: Vital Signs Temp Pulse Resp BP Pulse Ox Pulse Ox 04/09/21 14:00 95 04/09/21 13:00 95 04/09/21 11:57 36.9 C 74 14 108/66 100 04/09/21 08:15 36.3 C 72 14 107/79 100 04/09/21 03:41 36.3 C 72 20 137/70 99 - Problem List Review Problem List Initiated/Reviewed/Updated: Yes - My Orders Last 24 Hours: My Active Orders 04/08/21 18:00 Patient's Own Medication [Ptom] 0 each PO DAILY@1800 04/08/21 21:00 atorvaSTATin [Lipitor] 40 mg PO BEDTIME 04/09/21 06:00 Patient's Own Medication [Ptom] 0 each PO ACBREAKFAST 04/09/21 Lunch Clear Liquid Diet [DIET] 04/10/21 05:00 CBC WITH AUTO DIFF [HEME] DAILY COMPREHENSIVE METABOLIC PN,CMP [CHEM] DAILY 04/11/21 05:00 CBC WITH AUTO DIFF [HEME] DAILY COMPREHENSIVE METABOLIC PN,CMP [CHEM] DAILY 04/12/21 05:00 CBC WITH AUTO DIFF [HEME] DAILY COMPREHENSIVE METABOLIC PN,CMP [CHEM] DAILY 04/13/21 05:00 CBC WITH AUTO DIFF [HEME] DAILY COMPREHENSIVE METABOLIC PN,CMP [CHEM] DAILY - Plan Plan:: Patient is an 89-year-old male with a history of CHF, anemia, prostate cancer, gout, history of CVA and sleep apnea on CPAP who presented to the ER due black stool. Assessment: GI bleeding -possibly Lovenox and Eliquis induced -Hemoglobin 8.3 in the ER -No history of GI bleeding -BUN/creatinine ratio 33.8 on admission, possible upper GI bleeding -Vital signs are stable Acute blood loss on chronic anemia -Hb 9.1 today. 8.9 on 04/02/2021 -MCV 93.7, MCHC 35.0 on admission -Platelets 217 on admission Systolic CHF -LVEF approximately 28% on January 15, 2019 when he was admitted to the hospital for CHF exacerbation. -AICD in place -May have mild volume overload CAD, status post stenting -Continue statin -Aspirin is on hold due to GI bleeding ARCHANA or ARCHANA on CKD, -Creatinine 2.6 on admission today -creatinine 1.3 on January 18, 2021 -Has been on Lasix 40mg dialy Prostate cancer -Follow with the PCP and oncologist/urologist Gout -Allopurinol is on hold due to poor renal function. It will be resumed when renal function improved Transaminitis -total bilirubin 0.3 and Alk phos 101 on admission -Could be due to cardiohepatic syndrome History of CVA Sleep apnea on CPAP -Continue statin -Continue CPAP Plan: 1. Clear liquid. Repeat HH in 12 hours. Pantoprazole 40 mg twice daily Aspirin and Eliquis are on hold General surgeon Dr. Key is on board 2. Monitor HH. Will transfuse him if hemoglobin <7.0 3. Avoid nephrotoxic meds. benazepril is on hold. Repeat the renal function in morning 4. Repeat liver function in morning 5. Continue home CPAP. DVT prophylaxis: SCD. No pharmacological DVT prophylaxis due to GI bleeding. CODE STATUS: Full Disposition: Possibly 1 or 2 days
[2021-04-09] MEDS ORDERED: Pantoprazole 40 MG Tab.CR PO SCH (16:00)
[2021-04-09] MEDS: Tamsulosin 0.4 MG Cap.ER *PT OWN MED PO SCH (17:42)
[2021-04-09] MEDS: atorvaSTATin 40 MG Tab PO SCH (20:15)
[2021-04-10] MEDS: methylPREDNISolone Sodium Succinate 40 MG/1 ML SDV IVPUSH SCH (03:03)
[2021-04-10] MEDS: METOPROLOL SUCCINATE 100 MG PO SCH (08:18)
[2021-04-10] MEDS ORDERED: PANTOPRAZOLE 40 MG PO SCH (09:00)
[2021-04-10] MEDS ORDERED: Furosemide 20 MG/2 ML VIAL IVPUSH ONE (11:09)
[2021-04-10] MEDS ORDERED: Sodium Chloride 0.9% 1,000 ML IV STA (15:15)
--- NOTE | 2021-04-10 15:17 | PCM.PN ---
- General Info Date of Service: 04/10/21 Admission Dx/Problem (Free Text): Admission Diagnosis/Problem Admission Diagnosis/Problem Hemorrhage of colon Subjective Update: Patient is an 89-year-old male with a history of CHF, anemia, prostate cancer, gout, history of CVA and sleep apnea on CPAP who presented to the ER due black stool. Patient feels fine. Patient had black diarrhea x 2 last night. Denies chest pain, nausea, vomiting, or dizziness. He is on room air. Hemoglobin 9.2 Creatinine 2.3 Mag 2.8 - Review of Systems Systems Review Comment:: General: Reports: No Symptoms HEENT: Reports: No Symptoms Pulmonary: Reports: Shortness of Breath, Cough Cardiovascular: Reports: No Symptoms Gastrointestinal: Reports: Black Stool Genitourinary: Reports: No Symptoms Musculoskeletal: Reports: No Symptoms Skin: Reports: No Symptoms Psychiatric: Reports: No Symptoms Neurological: Reports: No Symptoms Hematologic/Lymphatic: Reports: No Symptoms Immunologic: Reports: No Symptoms - Patient Data Vitals - Most Recent: Last Vital Signs Temp 36.4 C 04/10/21 11:27 Pulse 72 04/10/21 11:27 Resp 16 04/10/21 11:27 BP 135/91 H 04/10/21 11:27 Pulse Ox 100 04/10/21 11:27 Weight - Most Recent: 81.193 kg I&O - Last 24 Hours: Intake & Output 04/10/21 04/10/21 04/10/21 06:59 14:59 22:59 Intake Total 550 400 Output Total 250 Balance 300 400 Lab Results Last 24 Hours: Laboratory Results - last 24 hr 04/10/21 04/10/21 04/10/21 Range/Units 06:00 06:00 06:00 WBC 5.93 (4.23-9.07) K/mm3 RBC 3.18 L (4.63-6.08) M/mm3 Hgb 9.2 L (13.7-17.5) gm/dl Hct 30.1 L (40.1-51.0) % MCV 94.7 H (79.0-92.2) fl MCH 28.9 (25.7-32.2) pg MCHC 30.6 L (32.2-35.5) g/dl RDW Std Deviation 54.5 H (35.1-43.9) fL Plt Count 229 (163-337) K/mm3 MPV 11.6 (9.4-12.3) fl Neut % (Auto) 92.1 H (34.0-67.9) % Lymph % (Auto) 5.2 L (21.8-53.1) % [place] % (Auto) 2.5 L (5.3-12.2) % Eos % (Auto) 0 L (0.8-7.0) Baso % (Auto) 0.0 L (0.1-1.2) % Neut # (Auto) 5.46 H (1.78-5.38) K/mm3 Lymph # (Auto) 0.31 L (1.32-3.57) K/mm3 [place] # (Auto) 0.15 L (0.30-0.82) K/mm3 Eos # (Auto) 0.00 L (0.04-0.54) K/mm3 Baso # (Auto) 0.00 L (0.01-0.08) K/mm3 Manual Slide Review Abnormal smear Sodium 138 (136-145) mEq/L Potassium 4.6 (3.5-5.1) mEq/L Chloride 105 (98-107) mEq/L Carbon Dioxide 23 (21-32) mEq/L Anion Gap 14.6 (5-15) BUN 82 H (7-18) mg/dL Creatinine 2.3 H (0.7-1.3) mg/dL Est Cr Clr Drug Dosing 17.52 mL/min Estimated GFR (MDRD) 27 (>60) mL/min BUN/Creatinine Ratio 35.7 H (14-18) Glucose 176 H (70-99) mg/dL Calcium 8.1 L (8.5-10.1) mg/dL Magnesium 2.8 H (1.8-2.4) mg/dL Total Bilirubin 0.4 (0.2-1.0) mg/dL AST 18 (15-37) U/L ALT 66 H (16-63) U/L Alkaline Phosphatase 83 (46-116) U/L Total Protein 6.1 L (6.4-8.2) g/dl Albumin 2.5 L (3.4-5.0) g/dl Globulin 3.6 gm/dL Albumin/Globulin Ratio 0.7 L (1-2) Med Orders - Current: Current Medications Acetaminophen (Acetaminophen 325 Mg Tab) 650 mg PO Q6H PRN PRN Reason: Pain (Mild 1-3)/fever Albuterol/Ipratropium (Albuterol/Ipratropium 3.0-0.5 Mg/3 Ml Neb Soln) 3 ml NEB Q4H PRN PRN Reason: Shortness Of Breath/wheezing Last Admin: 04/08/21 14:31 Dose: 3 ml Documented by: Atorvastatin Calcium (Atorvastatin 40 Mg Tab) 40 mg PO BEDTIME [facility] Last Admin: 04/09/21 20:15 Dose: 40 mg Documented by: Hydralazine HCl (Hydralazine 20 Mg/Ml Sdv) 10 mg IVPUSH Q4H PRN PRN Reason: Hypertension Promethazine HCl 12.5 mg/ (Sodium Chloride) 50.5 mls @ 100 mls/hr IV Q6H PRN PRN Reason: Nausea/Vomiting Metoprolol Succinate (Metoprolol Succinate 50 Mg Tab.Er) 100 mg PO BID [facility] Pantoprazole Sodium (Pantoprazole 40 Mg Tab.Cr) 40 mg PO BIDAC [facility] Prednisone (Prednisone 10 Mg Tab) 30 mg PO ONETIME ONE Stop: 04/11/21 09:01 Sodium Chloride (Sodium Chloride 0.9% 10 Ml Syringe) 10 ml FLUSH ASDIRECTED PRN PRN Reason: Keep Vein Open Last Admin: 04/08/21 08:33 Dose: 10 ml Documented by: Tamsulosin HCl (Tamsulosin 0.4 Mg Cap.Er) 0.4 mg PO DAILY@1800 [facility] Tramadol HCl (Tramadol 50 Mg Tab) 50 mg PO Q6H PRN PRN Reason: Pain (moderate 4-6) Discontinued Medications Furosemide (Furosemide 20 Mg/2 Ml Vial) 20 mg IVPUSH ONETIME ONE Stop: 04/10/21 11:10 Last Admin: 04/10/21 12:11 Dose: 20 mg Documented by: Lactated Ringer's (Ringers, Lactated) 1,000 mls @ 150 mls/hr IV ASDIRECTED [facility] Last Admin: 04/08/21 10:41 Dose: 150 mls/hr Documented by: Methylprednisolone Sodium Succinate (Methylprednisolone Sodium Succinate 40 Mg/1 Ml Sdv) 40 mg IVPUSH Q8H [facility] Last Admin: 04/10/21 03:03 Dose: 40 mg Documented by: Morphine Sulfate (Morphine 2 Mg/Ml Syringe) 2 mg IVPUSH Q4H PRN PRN Reason: Pain (severe 7-10) Stop: 04/09/21 11:56 Pantoprazole Sodium (Pantoprazole 40 Mg Vial) 40 mg IVPUSH ONETIME ONE Stop: 04/08/21 08:40 Last Admin: 04/08/21 08:56 Dose: 40 mg Documented by: Metoprolol Succinate 100 Mg Tab.Er *Pt Own Med* 0 each PO BID [facility] Last Admin: 04/10/21 08:18 Dose: 1 each Documented by: Pantoprazole 40 Mg (Tab *Pt Own Med*) 0 each PO ACBREAKFAST [facility] Last Admin: 04/09/21 07:05 Dose: 1 each Documented by: Rosuvastatin 20 Mg (Tab *Pt Own Med*) 0 each PO DAILY@1800 [facility] Tamsulosin 0.4 Mg (Cap.Er *Pt Own Med*) 0 each PO DAILY@1800 [facility] Last Admin: 04/09/21 17:42 Dose: 1 each Documented by: Pantoprazole 40 Mg (Tab *Pt Own Med*) 0 each PO BIDAC [facility] Last Admin: 04/10/21 08:18 Dose: 1 each Documented by: - Exam Physical Findings Comments:: General: Alert, Oriented, Cooperative HEENT: Conjunctiva Clear, EOMI, Pupils Equal, Pupils Reactive Neck: Supple, Trachea Midline, Full Range of Motion Lungs: Decreased Breath Sounds, Wheezing (Mild expiratory wheezing bilateral) Cardiovascular: Irregular Rhythm GI/Abdominal Exam: Normal Bowel Sounds, Soft, Non-Tender, No Organomegaly Extremities: Normal Inspection, Normal Range of Motion, Non-Tender, Pedal Edema (1+) Skin: Warm, Dry, Intact Neurological: Cranial Nerves Intact, Reflexes Equal Bilateral, Strength Equal Bilateral, Normal Speech, Normal Tone, Sensation Intact Neuro Extensive - Mental Status: Alert, Oriented x3, Normal Mood/Affect Psychiatric: Normal Mood - Patient Data Lab Results Last 24 hrs: Laboratory Results - last 24 hr 04/10/21 04/10/21 04/10/21 Range/Units 06:00 06:00 06:00 WBC 5.93 (4.23-9.07) K/mm3 RBC 3.18 L (4.63-6.08) M/mm3 Hgb 9.2 L (13.7-17.5) gm/dl Hct 30.1 L (40.1-51.0) % MCV 94.7 H (79.0-92.2) fl MCH 28.9 (25.7-32.2) pg MCHC 30.6 L (32.2-35.5) g/dl RDW Std Deviation 54.5 H (35.1-43.9) fL Plt Count 229 (163-337) K/mm3 MPV 11.6 (9.4-12.3) fl Neut % (Auto) 92.1 H (34.0-67.9) % Lymph % (Auto) 5.2 L (21.8-53.1) % [place] % (Auto) 2.5 L (5.3-12.2) % Eos % (Auto) 0 L (0.8-7.0) Baso % (Auto) 0.0 L (0.1-1.2) % Neut # (Auto) 5.46 H (1.78-5.38) K/mm3 Lymph # (Auto) 0.31 L (1.32-3.57) K/mm3 [place] # (Auto) 0.15 L (0.30-0.82) K/mm3 Eos # (Auto) 0.00 L (0.04-0.54) K/mm3 Baso # (Auto) 0.00 L (0.01-0.08) K/mm3 Manual Slide Review Abnormal smear Sodium 138 (136-145) mEq/L Potassium 4.6 (3.5-5.1) mEq/L Chloride 105 (98-107) mEq/L Carbon Dioxide 23 (21-32) mEq/L Anion Gap 14.6 (5-15) BUN 82 H (7-18) mg/dL Creatinine 2.3 H (0.7-1.3) mg/dL Est Cr Clr Drug Dosing 17.52 mL/min Estimated GFR (MDRD) 27 (>60) mL/min BUN/Creatinine Ratio 35.7 H (14-18) Glucose 176 H (70-99) mg/dL Calcium 8.1 L (8.5-10.1) mg/dL Magnesium 2.8 H (1.8-2.4) mg/dL Total Bilirubin 0.4 (0.2-1.0) mg/dL AST 18 (15-37) U/L ALT 66 H (16-63) U/L Alkaline Phosphatase 83 (46-116) U/L Total Protein 6.1 L (6.4-8.2) g/dl Albumin 2.5 L (3.4-5.0) g/dl Globulin 3.6 gm/dL Albumin/Globulin Ratio 0.7 L (1-2) Result Diagrams: 04/10/21 06:00 04/10/21 06:00 Sepsis Event Note - Evaluation Sepsis Screening Result: No Definite Risk - Focused Exam Vital Signs: Vital Signs Temp Pulse Resp BP Pulse Ox Pulse Ox 04/10/21 11:27 36.4 C 72 16 135/91 H 100 04/10/21 07:39 36.4 C 73 18 113/76 100 04/10/21 06:17 97 - Problem List Review Problem List Initiated/Reviewed/Updated: Yes - My Orders Last 24 Hours: My Active Orders 04/10/21 Breakfast Regular Diet [DIET] Regular Diet [DIET] 04/10/21 11:21 Patient Status [ADT] Routine 04/10/21 16:00 Pantoprazole [ProTONIX] 40 mg PO BIDAC 04/10/21 17:00 CMP [COMPREHENSIVE METABOLIC PN,CMP] [CHEM] Routine MAGNESIUM [CHEM] Routine 04/10/21 18:00 Tamsulosin [Flomax] 0.4 mg PO DAILY@1800 04/10/21 21:00 Metoprolol Succinate [Toprol XL] 100 mg PO BID 04/11/21 05:00 CBC WITH AUTO DIFF [HEME] DAILY COMPREHENSIVE METABOLIC PN,CMP [CHEM] DAILY 04/11/21 09:00 predniSONE 30 mg PO ONETIME ONE 04/12/21 05:00 CBC WITH AUTO DIFF [HEME] DAILY COMPREHENSIVE METABOLIC PN,CMP [CHEM] DAILY 04/13/21 05:00 CBC WITH AUTO DIFF [HEME] DAILY COMPREHENSIVE METABOLIC PN,CMP [CHEM] DAILY - Plan Plan:: Patient is an 89-year-old male with a history of CHF, anemia, prostate cancer, gout, history of CVA and sleep apnea on CPAP who presented to the ER due black stool. Assessment: GI bleeding -possibly Lovenox and Eliquis induced -Hemoglobin 8.3 in the ER -No history of GI bleeding -BUN/creatinine ratio 33.8 on admission, possible upper GI bleeding -Vital signs are stable Acute blood loss on chronic anemia -Hb 9.1 today. 8.9 on 04/02/2021 -MCV 93.7, MCHC 35.0 on admission -Platelets 217 on admission Systolic CHF -LVEF approximately 28% on January 15, 2019 when he was admitted to the hospital for CHF exacerbation. -AICD in place -May have mild volume overload CAD, status post stenting -Continue statin -Aspirin is on hold due to GI bleeding ARCHANA or ARCHANA on CKD, -Creatinine 2.6 on admission -creatinine 1.3 on January 18, 2021 -Has been on Lasix 40mg dialy -Creatinine 2.3 today Prostate cancer -Follow with the PCP and oncologist/urologist Gout -Allopurinol is on hold due to poor renal function. It will be resumed when renal function improved Transaminitis -total bilirubin 0.3 and Alk phos 101 on admission -Could be due to cardiohepatic syndrome History of CVA Sleep apnea on CPAP -Continue statin -Continue CPAP Hypermagnesemia -2.6>2.7>2.8 -Etiology unknown. Not on mag supplement -Creatinine 2.3 today Plan: 1. Discussed with Dr. Key this morning who suggested to put pt on regular diet and send him to home today. Pantoprazole 40 mg twice daily Aspirin and Eliquis are on hold 2. Avoid nephrotoxic meds. benazepril is on hold. Repeat the renal function in morning. Gentle IV fluid normal saline 50 cc/h 3. Repeat liver function in morning 4. Continue home CPAP. 5. Lasix 20mg iv once and repeat mag DVT prophylaxis: SCD. No pharmacological DVT prophylaxis due to GI bleeding. CODE STATUS: Full Disposition: Considering patient's renal function -creatinine went up to 2.3 today,
[2021-04-10] MEDS: Pantoprazole 40 MG Tab.CR PO SCH (16:36)
[2021-04-10] MEDS: Tamsulosin 0.4 MG Cap.ER PO SCH (17:37)
[2021-04-10] MEDS: Metoprolol Succinate 50 MG Tab.ER PO SCH (20:34)
[2021-04-10] MEDS: atorvaSTATin 40 MG Tab PO SCH (20:34)
[2021-04-10] MEDS: Insulin Lispro 100 UNIT/ML 10 ML Vial SUBCUT SCH (21:53)
[2021-04-11] MEDS: Pantoprazole 40 MG Tab.CR PO SCH ×2 (06:15→20:02)
[2021-04-11] MEDS: Insulin Lispro 100 UNIT/ML 10 ML Vial SUBCUT SCH ×3 (06:26→20:02)
[2021-04-11] MEDS: Metoprolol Succinate 50 MG Tab.ER PO SCH (08:19)
[2021-04-11] MEDS ORDERED: predniSONE 10 MG Tab PO ONE (09:00)
[2021-04-11] MEDS: Furosemide 20 MG/2 ML VIAL IVPUSH ONE ×3 (11:06→11:11)
[2021-04-11] MEDS: Sodium Polystyrene Sulfonate 15 GM/60 ML Susp 60 ML Bot PO ONE ×3 (11:07→11:12)
[2021-04-11] MEDS ORDERED: Furosemide 20 MG/2 ML VIAL IVPUSH ONE (11:15)
[2021-04-11] MEDS ORDERED: Sodium Polystyrene Sulfonate 15 GM/60 ML Susp 60 ML Bot PO ONE (11:15)
[2021-04-11 15:50] VITALS: BP 125/83; PULSE 75
--- NOTE | 2021-04-11 16:31 | PCM.DCSUM1 ---
Discharge Summary - Hospital Course Free Text/Narrative:: Patient is an 89-year-old male with a history of CHF, anemia, prostate cancer, gout, history of CVA and sleep apnea on CPAP who presented to the ER due black stool. Assessment: GI bleeding -possibly Lovenox and Eliquis induced -Hemoglobin 8.3 in the ER -No history of GI bleeding -BUN/creatinine ratio 33.8 on admission, possible upper GI bleeding -Vital signs are stable Acute blood loss on chronic anemia -Hb 10.0 today. 8.9 on 04/02/2021 -MCV 93.7, MCHC 35.0 on admission -Platelets 217 on admission. 213 today. Systolic CHF -LVEF approximately 28% on January 15, 2019 when he was admitted to the hospital for CHF exacerbation. -AICD in place -May have mild volume overload CAD, status post stenting -Continue statin -Aspirin is on hold due to GI bleeding ARCHANA or ARCHANA on CKD, -Creatinine 2.6 on admission -creatinine 1.3 on January 18, 2021 -Has been on Lasix 40mg dialy -Creatinine 2.6 today Prostate cancer -Follow with the PCP and oncologist/urologist Gout -Allopurinol is on hold due to poor renal function. It will be resumed when renal function improved Transaminitis -total bilirubin 0.3 and Alk phos 101 on admission -Could be due to cardiohepatic syndrome History of CVA Sleep apnea on CPAP -Continue statin -Continue CPAP Hypermagnesemia -2.6>2.7>2.8>2.8 -Etiology unknown. Not on mag supplement -Creatinine 2.3 today Elevation of troponin -EKG - no ST elevation -troponin up to 0.088 -He has renal failure. Non-sustained VT -No chest pain -hemodynamic stable -Elevation of troponin -Has CAD and hx of CVA -Mag 2.8, K 4.4 Plan: 1. Discussed with Dr. Key this morning who cleared to discharge him to home and can have regular diet. Pantoprazole 40 mg twice daily Aspirin and Eliquis are on hold 2. Avoid nephrotoxic meds. benazepril is on hold. Repeat the renal function in morning. Gentle IV fluid normal saline 50 cc/h (discontinued) 3. Repeat liver function in morning 4. Continue home CPAP. 5. Lasix 20mg iv once and repeat mag 6. Continue lipitor 40mg daily. 7. Continue metoprolol succinate 100 mg twice daily 8. DVT prophylaxis: SCD. No pharmacological DVT prophylaxis due to GI bleeding. CODE STATUS: DNR/DNI. Patient initially would like to have full code on admission. Met the patient and in his room. I explained the CPR and intubation at length to patient and the this afternoon. Patient declined both CPR and intubation. was agreement with him. At this point, I feel patient needs cardiology and nephrology. Spoke to concrete mixer operator Dr. Cao and hospitalist Dr. Littlejohn at the [facility] in [place] who accepted the pt. discussed with the patient and who agreed with the plan. HPI Initial Comments: Patient is an 89-year-old male with a history of CHF, anemia, prostate cancer, gout, history of CVA and sleep apnea on CPAP who presented to the ER due black stool. Patient was admitted to our hospital on March 31, 2021 due to CHF exacerbation and possible pneumonia. In the hospital, he was found to have atrial fibrillation for which he was treated with therapeutic Lovenox. He was discharged from the hospital on April 02 (Friday). He saw his concrete mixer operator on (4 days ago) who initiated Eliquis for him. As per , he has been having black stool for 4 to 5 days. No history of GI bleeding. Otherwise he denies headache, dizziness, chest pain, abdominal pain, nausea, vomiting, or dysuria. In the ER, hemoglobin 8.3. General surgeon Dr. Key was consulted. Neck Diagnosis: Stroke: No - Discharge Data Discharge Date: 04/11/21 Discharge Disposition: DC/Tfer to Acute Hospital 02 Condition: Poor - Referral to Home Health Primary Care Physician: Johan Khan MD - Patient Instructions Diet: NPO Activity: Bedrest Driving: Do Not Drive - Discharge Plan Home Medications: Home Meds Benazepril HCl [Lotensin] 10 mg PO DAILY 05/19/14 [History] Tamsulosin [Flomax] 0.4 mg PO BEDTIME 02/26/15 [History] Allopurinol [Zyloprim] 300 mg PO DAILY 07/07/15 [History] Multivitamin [Multivitamins] 1 tab PO DAILY 08/30/15 [History] Pantoprazole Sodium [Protonix] 40 mg PO DAILY 30 Days suspdr.pkt 09/02/15 [Rx] Furosemide [Lasix] 40 mg PO DAILY 06/13/18 [History] predniSONE [Prednisone] 20 mg PO BID PRN 06/13/18 [History] Aspirin [Ecotrin EC] 81 mg PO DAILY 11/26/18 [History] C/Sourcherry/Celery/Grape Seed [Tart [place]] 1,200 mg PO DAILY 11/26/18 [History] Nitroglycerin [Nitrostat] 0.4 mg SL ASDIRECTED PRN 11/26/18 [History] Rosuvastatin [Crestor] 20 mg PO DAILY 03/31/21 [History] Metoprolol Succinate 100 mg PO BID #60 tab.er.24h 04/02/21 [Rx] Apixaban [Eliquis] 2.5 mg PO BID 04/08/21 [History] Patient Handouts: Rectal Bleeding, [id number] Referrals: Johan Khan MD [Primary Care Provider] - 04/18/21 11:30 am (Please come 15 monutes prior to the appointment to register.) - Discharge Summary/Plan Comment DC Time >30 min.: Yes - General Info Date of Service: 04/11/21 Admission Dx/Problem (Free Text: Admission Diagnosis/Problem Admission Diagnosis/Problem Hemorrhage of colon Subjective Update: Patient is an 89-year-old male with a history of CHF, anemia, prostate cancer, gout, history of CVA and sleep apnea on CPAP who presented to the ER due black stool. Patient feels fine. Patient does not have any black stool today. Denies chest pain, nausea, vomiting, or dizziness. He is on room air. Hemoglobin 10.0, platelets 213 Creatinine 2. 6 Mag 2.8 This afternoon patient had one episode of nonsustained V. tach. No chest pain. - Review of Systems Systems Review Comment: General: Reports: No Symptoms HEENT: Reports: No Symptoms Pulmonary: Reports: Shortness of Breath, Cough Cardiovascular: Reports: No Symptoms Gastrointestinal: Reports: Black Stool Genitourinary: Reports: No Symptoms Musculoskeletal: Reports: No Symptoms Skin: Reports: No Symptoms Psychiatric: Reports: No Symptoms Neurological: Reports: No Symptoms Hematologic/Lymphatic: Reports: No Symptoms Immunologic: Reports: No Symptoms - Patient Data Vitals - Most Recent: Last Vital Signs Temp 36.5 C 04/11/21 15:42 Pulse 75 04/11/21 15:42 Resp 16 04/11/21 15:42 BP 125/83 04/11/21 15:42 Pulse Ox 98 04/11/21 15:42 Weight - Most Recent: 81.511 kg I&O - Last 24 hours: Intake & Output 04/11/21 04/11/21 04/11/21 06:59 14:59 22:59 Intake Total 401 951 1529 Output Total 250 125 Balance 967 [id number] Lab Results - Last 24 hrs: Laboratory Results - last 24 hr 04/10/21 04/10/21 04/11/21 Range/Units 17:07 21:41 04:57 WBC 7.96 (4.23-9.07) K/mm3 RBC 3.32 L (4.63-6.08) M/mm3 Hgb 10.0 L (13.7-17.5) gm/dl Hct 31.4 L (40.1-51.0) % MCV 94.6 H (79.0-92.2) fl MCH 30.1 (25.7-32.2) pg MCHC 31.8 L (32.2-35.5) g/dl RDW Std Deviation 56.4 H (35.1-43.9) fL Plt Count 213 (163-337) K/mm3 MPV 11.9 (9.4-12.3) fl Neut % (Auto) 89.8 H (34.0-67.9) % Lymph % (Auto) 4.9 L (21.8-53.1) % [place] % (Auto) 5.3 (5.3-12.2) % Eos % (Auto) 0 L (0.8-7.0) Baso % (Auto) 0.0 L (0.1-1.2) % Neut # (Auto) 7.15 H (1.78-5.38) K/mm3 Lymph # (Auto) 0.39 L (1.32-3.57) K/mm3 [place] # (Auto) 0.42 (0.30-0.82) K/mm3 Eos # (Auto) 0.00 L (0.04-0.54) K/mm3 Baso # (Auto) 0.00 L (0.01-0.08) K/mm3 Manual Slide Review Abnormal smear Sodium 137 (136-145) mEq/L Potassium 4.4 (3.5-5.1) mEq/L Chloride 103 (98-107) mEq/L Carbon Dioxide 24 (21-32) mEq/L Anion Gap 14.4 (5-15) BUN 85 H (7-18) mg/dL Creatinine 2.5 H (0.7-1.3) mg/dL Est Cr Clr Drug Dosing 16.12 mL/min Estimated GFR (MDRD) 24 (>60) mL/min BUN/Creatinine Ratio 34.0 H (14-18) Glucose 224 H (70-99) mg/dL POC Glucose 172 H (70-99) mg/dL Calcium 8.1 L (8.5-10.1) mg/dL Magnesium 2.8 H (1.8-2.4) mg/dL Total Bilirubin 0.3 (0.2-1.0) mg/dL AST 29 (15-37) U/L ALT 68 H (16-63) U/L Alkaline Phosphatase 92 (46-116) U/L Total Protein 6.4 (6.4-8.2) g/dl Albumin 2.6 L (3.4-5.0) g/dl Globulin 3.8 gm/dL Albumin/Globulin Ratio 0.7 L (1-2) 04/11/21 04/11/21 04/11/21 Range/Units 04:57 06:17 11:17 WBC (4.23-9.07) K/mm3 RBC (4.63-6.08) M/mm3 Hgb (13.7-17.5) gm/dl Hct (40.1-51.0) % MCV (79.0-92.2) fl MCH (25.7-32.2) pg MCHC (32.2-35.5) g/dl RDW Std Deviation (35.1-43.9) fL Plt Count (163-337) K/mm3 MPV (9.4-12.3) fl Neut % (Auto) (34.0-67.9) % Lymph % (Auto) (21.8-53.1) % [place] % (Auto) (5.3-12.2) % Eos % (Auto) (0.8-7.0) Baso % (Auto) (0.1-1.2) % Neut # (Auto) (1.78-5.38) K/mm3 Lymph # (Auto) (1.32-3.57) K/mm3 [place] # (Auto) (0.30-0.82) K/mm3 Eos # (Auto) (0.04-0.54) K/mm3 Baso # (Auto) (0.01-0.08) K/mm3 Manual Slide Review Sodium 140 (136-145) mEq/L Potassium 5.1 (3.5-5.1) mEq/L Chloride 108 H (98-107) mEq/L Carbon Dioxide 22 (21-32) mEq/L Anion Gap 15.1 H (5-15) BUN 94 H (7-18) mg/dL Creatinine 2.5 H (0.7-1.3) mg/dL Est Cr Clr Drug Dosing 16.12 mL/min Estimated GFR (MDRD) 24 (>60) mL/min BUN/Creatinine Ratio 37.6 H (14-18) Glucose 155 H (70-99) mg/dL POC Glucose 145 H 144 H (70-99) mg/dL Calcium 7.9 L (8.5-10.1) mg/dL Magnesium (1.8-2.4) mg/dL Total Bilirubin 0.3 (0.2-1.0) mg/dL AST 51 H (15-37) U/L ALT 74 H (16-63) U/L Alkaline Phosphatase 85 (46-116) U/L Total Protein 5.9 L (6.4-8.2) g/dl Albumin 2.5 L (3.4-5.0) g/dl Globulin 3.4 gm/dL Albumin/Globulin Ratio 0.7 L (1-2) 04/11/21 Range/Units 14:20 WBC (4.23-9.07) K/mm3 RBC (4.63-6.08) M/mm3 Hgb (13.7-17.5) gm/dl Hct (40.1-51.0) % MCV (79.0-92.2) fl MCH (25.7-32.2) pg MCHC (32.2-35.5) g/dl RDW Std Deviation (35.1-43.9) fL Plt Count (163-337) K/mm3 MPV (9.4-12.3) fl Neut % (Auto) (34.0-67.9) % Lymph % (Auto) (21.8-53.1) % [place] % (Auto) (5.3-12.2) % Eos % (Auto) (0.8-7.0) Baso % (Auto) (0.1-1.2) % Neut # (Auto) (1.78-5.38) K/mm3 Lymph # (Auto) (1.32-3.57) K/mm3 [place] # (Auto) (0.30-0.82) K/mm3 Eos # (Auto) (0.04-0.54) K/mm3 Baso # (Auto) (0.01-0.08) K/mm3 Manual Slide Review Sodium 143 (136-145) mEq/L Potassium 4.4 (3.5-5.1) mEq/L Chloride 107 (98-107) mEq/L Carbon Dioxide 24 (21-32) mEq/L Anion Gap 16.4 H (5-15) BUN 95 H (7-18) mg/dL Creatinine 2.6 H (0.7-1.3) mg/dL Est Cr Clr Drug Dosing 15.50 mL/min Estimated GFR (MDRD) 23 (>60) mL/min BUN/Creatinine Ratio 36.5 H (14-18) Glucose 182 H (70-99) mg/dL POC Glucose (70-99) mg/dL Calcium 8.1 L (8.5-10.1) mg/dL Magnesium 2.8 H (1.8-2.4) mg/dL Total Bilirubin (0.2-1.0) mg/dL AST (15-37) U/L ALT (16-63) U/L Alkaline Phosphatase (46-116) U/L Total Protein (6.4-8.2) g/dl Albumin (3.4-5.0) g/dl Globulin gm/dL Albumin/Globulin Ratio (1-2) Med Orders - Current: Current Medications Acetaminophen (Acetaminophen 325 Mg Tab) 650 mg PO Q6H PRN PRN Reason: Pain (Mild 1-3)/fever Albuterol/Ipratropium (Albuterol/Ipratropium 3.0-0.5 Mg/3 Ml Neb Soln) 3 ml NEB Q4H PRN PRN Reason: Shortness Of Breath/wheezing Last Admin: 04/08/21 14:31 Dose: 3 ml Documented by: Atorvastatin Calcium (Atorvastatin 40 Mg Tab) 40 mg PO BEDTIME [facility] Last Admin: 04/10/21 20:34 Dose: 40 mg Documented by: Hydralazine HCl (Hydralazine 20 Mg/Ml Sdv) 10 mg IVPUSH Q4H PRN PRN Reason: Hypertension Promethazine HCl 12.5 mg/ (Sodium Chloride) 50.5 mls @ 100 mls/hr IV Q6H PRN PRN Reason: Nausea/Vomiting Insulin Human Lispro (Insulin Lispro 100 Unit/Ml 10 Ml Vial) 0 unit SUBCUT QIDACANDBED [facility]; Protocol Last Admin: 04/11/21 11:32 Dose: Not Given Documented by: Metoprolol Succinate (Metoprolol Succinate 50 Mg Tab.Er) 100 mg PO BID [facility] Last Admin: 04/11/21 08:19 Dose: 100 mg Documented by: Pantoprazole Sodium (Pantoprazole 40 Mg Tab.Cr) 40 mg PO BIDAC [facility] Last Admin: 04/11/21 06:15 Dose: 40 mg Documented by: Sodium Chloride (Sodium Chloride 0.9% 10 Ml Syringe) 10 ml FLUSH ASDIRECTED PRN PRN Reason: Keep Vein Open Last Admin: 04/08/21 08:33 Dose: 10 ml Documented by: Tamsulosin HCl (Tamsulosin 0.4 Mg Cap.Er) 0.4 mg PO DAILY@1800 [facility] Last Admin: 04/10/21 17:37 Dose: 0.4 mg Documented by: Tramadol HCl (Tramadol 50 Mg Tab) 50 mg PO Q6H PRN PRN Reason: Pain (moderate 4-6) Discontinued Medications Furosemide (Furosemide 20 Mg/2 Ml Vial) 20 mg IVPUSH ONETIME ONE Stop: 04/10/21 11:10 Last Admin: 04/10/21 12:11 Dose: 20 mg Documented by: Furosemide (Furosemide 20 Mg/2 Ml Vial) 20 mg IVPUSH NOW ONE Stop: 04/11/21 08:28 Last Admin: 04/11/21 11:11 Dose: Not Given Documented by: Furosemide (Furosemide 20 Mg/2 Ml Vial) 20 mg IVPUSH NOW ONE Stop: 04/11/21 11:16 Last Admin: 04/11/21 11:13 Dose: 20 mg Documented by: Lactated Ringer's (Ringers, Lactated) 1,000 mls @ 150 mls/hr IV ASDIRECTED [facility] Last Admin: 04/08/21 10:41 Dose: 150 mls/hr Documented by: Sodium Chloride (Normal Saline) 1,000 mls @ 50 mls/hr IV NOW STA Stop: 04/11/21 11:14 Last Admin: 04/10/21 16:36 Dose: 50 mls/hr Documented by: Methylprednisolone Sodium Succinate (Methylprednisolone Sodium Succinate 40 Mg/1 Ml Sdv) 40 mg IVPUSH Q8H [facility] Last Admin: 04/10/21 03:03 Dose: 40 mg Documented by: Morphine Sulfate (Morphine 2 Mg/Ml Syringe) 2 mg IVPUSH Q4H PRN PRN Reason: Pain (severe 7-10) Stop: 04/09/21 11:56 Pantoprazole Sodium (Pantoprazole 40 Mg Vial) 40 mg IVPUSH ONETIME ONE Stop: 04/08/21 08:40 Last Admin: 04/08/21 08:56 Dose: 40 mg Documented by: Metoprolol Succinate 100 Mg Tab.Er *Pt Own Med* 0 each PO BID [facility] Last Admin: 04/10/21 08:18 Dose: 1 each Documented by: Pantoprazole 40 Mg (Tab *Pt Own Med*) 0 each PO ACBREAKFAST [facility] Last Admin: 04/09/21 07:05 Dose: 1 each Documented by: Rosuvastatin 20 Mg (Tab *Pt Own Med*) 0 each PO DAILY@1800 [facility] Tamsulosin 0.4 Mg (Cap.Er *Pt Own Med*) 0 each PO DAILY@1800 [facility] Last Admin: 04/09/21 17:42 Dose: 1 each Documented by: Pantoprazole 40 Mg (Tab *Pt Own Med*) 0 each PO BIDAC [facility] Last Admin: 04/10/21 08:18 Dose: 1 each Documented by: Prednisone (Prednisone 10 Mg Tab) 30 mg PO ONETIME ONE Stop: 04/11/21 09:01 Last Admin: 04/11/21 08:19 Dose: 30 mg Documented by: Sodium Polystyrene Sulfonate (Sodium Polystyrene Sulfonate 15 Gm/60 Ml Susp 60 Ml Bot) 30 gm PO ONETIME ONE Stop: 04/11/21 08:27 Last Admin: 04/11/21 11:11 Dose: Not Given Documented by: Sodium Polystyrene Sulfonate (Sodium Polystyrene Sulfonate 15 Gm/60 Ml Susp 60 Ml Bot) 30 gm PO ONETIME ONE Stop: 04/11/21 11:16 Last Admin: 04/11/21 11:14 Dose: 30 gm Documented by: - Exam Physical Findings Comments:: General: Alert, Oriented, Cooperative HEENT: Conjunctiva Clear, EOMI, Pupils Equal, Pupils Reactive Neck: Supple, Trachea Midline, Full Range of Motion Lungs: Decreased Breath Sounds, Wheezing (Mild expiratory wheezing bilateral) Cardiovascular: Irregular Rhythm GI/Abdominal Exam: Normal Bowel Sounds, Soft, Non-Tender, No Organomegaly Extremities: Normal Inspection, Normal Range of Motion, Non-Tender, Pedal Edema (1+) Skin: Warm, Dry, Intact Neurological: Cranial Nerves Intact, Reflexes Equal Bilateral, Strength Equal Bilateral, Normal Speech, Normal Tone, Sensation Intact Neuro Extensive - Mental Status: Alert, Oriented x3, Normal Mood/Affect Psychiatric: Normal Mood
[2021-04-11] MEDS: Tamsulosin 0.4 MG Cap.ER PO SCH (20:02)
== END 2021-04-11 18:14 | DRG 813 ==
LOC: JD.ED 07:31 → JD.MS 11:44 → OBSVTOIN 04-10 11:21
PROVIDERS: ADMIT Internal Medicine; ATTEND Internal Medicine
DX: D68.32 Hemorrhagic disorder due to extrinsic circulating anticoagulants (principal); D62 Acute posthemorrhagic anemia; R19.7 Diarrhea, unspecified; I13.0 Hypertensive heart and chronic kidney disease with heart failure and stage 1 through stage 4 chronic kidney disease, or unspecified chronic kidney disease; H91.93 Unspecified hearing loss, bilateral; I50.22 Chronic systolic (congestive) heart failure; N17.9 Acute kidney failure, unspecified; I47.2 Ventricular tachycardia; H54.7 Unspecified visual loss; I25.10 Atherosclerotic heart disease of native coronary artery without angina pectoris; T45.515A Adverse effect of anticoagulants, initial encounter; Y92.89 Other specified places as the place of occurrence of the external cause; C61 Malignant neoplasm of prostate; Z95.810 Presence of automatic (implantable) cardiac defibrillator; N18.9 Chronic kidney disease, unspecified; G47.33 Obstructive sleep apnea (adult) (pediatric); E78.00 Pure hypercholesterolemia, unspecified; P04.18 Newborn affected by other maternal medication; Z66 Do not resuscitate; G47.30 Sleep apnea, unspecified; E78.5 Hyperlipidemia, unspecified; I25.2 Old myocardial infarction; K21.9 Gastro-esophageal reflux disease without esophagitis; N40.0 Benign prostatic hyperplasia without lower urinary tract symptoms; Z87.442 Personal history of urinary calculi; E11.22 Type 2 diabetes mellitus with diabetic chronic kidney disease; Z79.4 Long term (current) use of insulin; Z98.42 Cataract extraction status, left eye; M19.90 Unspecified osteoarthritis, unspecified site; Z98.41 Cataract extraction status, right eye; E11.9 Type 2 diabetes mellitus without complications; Z98.890 Other specified postprocedural states; Z85.46 Personal history of malignant neoplasm of prostate; Z79.01 Long term (current) use of anticoagulants; Z79.82 Long term (current) use of aspirin; Z79.52 Long term (current) use of systemic steroids; Z79.899 Other long term (current) drug therapy; D64.9 Anemia, unspecified; D50.0 Iron deficiency anemia secondary to blood loss (chronic); M10.9 Gout, unspecified; Z95.5 Presence of coronary angioplasty implant and graft; Z86.73 Personal history of transient ischemic attack (TIA), and cerebral infarction without residual deficits; Z20.822 Contact with and (suspected) exposure to COVID-19; E83.41 Hypermagnesemia
CPT/HCPCS: 36415 ×3; 80053 ×3; 83735 ×3; 84484 ×4; 85025 ×4; 85610; 85730 ×2; 86850; 86900; 86901; 87493 ×2; 93005; 94640; 94762; 96374; 96375; 96376 ×3; 99285; A9270 ×2; C9113; G0378 ×4; J2920 ×6; J7120; U0002; 36410; 80048; 82947; 99220; 99226; 99233; 99239; 99284; J1815-GY; J1940; J7030; J7512; J7620-GY

== ENCOUNTER 2021-05-03 08:33 | Emergency (ER) | payer MEDICARE, OTHER ==
[2021-05-03 08:48] VITALS: BP 125/54; PULSE 76
[2021-05-03] MEDS ORDERED: Albuterol/Ipratropium 3.0-0.5 MG/3 ML Neb Soln NEB ONE (08:55)
[2021-05-03] MEDS: Sodium Chloride 0.9% 10 ML Syringe FLUSH PRN ×2 (09:08→09:14)
--- NOTE | 2021-05-03 09:31 | CR ---
Chest: Portable view of the chest was obtained. Comparison: Prior chest x-ray of 03/31/21. Diffuse increased lung markings are noted on both sides of the chest having the appearance of mild pulmonary vascular congestion. AICD is present. Heart size is slightly enlarged. Upper mediastinum is normal. Impression: 1. Findings suspicious for mild CHF. 2. Evidence of interval AICD. Diagnostic code #3
--- NOTE | 2021-05-03 09:36 | EDM.PDOC ---
ED HPI GENERAL MEDICAL PROBLEM - General Chief Complaint: Respiratory Problem Stated Complaint: WHEEZING Time Seen by Provider: 05/03/21 08:38 Source of Information: Reports: Patient History Limitations: Reports: No Limitations - History of Present Illness INITIAL COMMENTS - FREE TEXT/NARRATIVE: The patient presents with his for rhonchi, cough and shortness of breath with exertion. This has been going on for over a week. He was admitted to the hospital here last month and then sent to [place]. He was switched from lasix to torsamide 20mg daily. He may not have taken that for a few days. He has a slight cough. He has no chest pain. He has some rattling in his chest. He has no fever or chills. He has no abdominal pain, nausea or vomiting. He has some mild swelling in his legs. Onset: Gradual Duration: Week(s): Severity: Moderate Improves with: Reports: None Worsens with: Reports: None Associated Symptoms: Reports: Cough, Shortness of Breath. Denies: Chest Pain, Fever/Chills, Headaches, Nausea/Vomiting - Related Data Allergies Allergy/AdvReac Type Severity Reaction Status Date / Time No Known Allergies Allergy Verified 04/08/21 18:42 Home Meds: Home Meds Benazepril HCl [Lotensin] 10 mg PO DAILY 05/19/14 [History] Tamsulosin [Flomax] 0.4 mg PO BEDTIME 02/26/15 [History] Allopurinol [Zyloprim] 300 mg PO DAILY 07/07/15 [History] Multivitamin [Multivitamins] 1 tab PO DAILY 08/30/15 [History] Pantoprazole Sodium [Protonix] 40 mg PO DAILY 30 Days suspdr.pkt 09/02/15 [Rx] Furosemide [Lasix] 40 mg PO DAILY 06/13/18 [History] predniSONE [Prednisone] 20 mg PO BID PRN 06/13/18 [History] Aspirin [Ecotrin EC] 81 mg PO DAILY 11/26/18 [History] C/Sourcherry/Celery/Grape Seed [Tart [place]] 1,200 mg PO DAILY 11/26/18 [Histor y] Nitroglycerin [Nitrostat] 0.4 mg SL ASDIRECTED PRN 11/26/18 [History] Rosuvastatin [Crestor] 20 mg PO DAILY 03/31/21 [History] Metoprolol Succinate 100 mg PO BID #60 tab.er.24h 04/02/21 [Rx] Apixaban [Eliquis] 2.5 mg PO BID 04/08/21 [History] Torsemide [Demadex] 20 mg PO BID #30 tab 05/03/21 [Rx] Past Medical History HEENT History: Reports: Hard of Hearing, Impaired Vision Other HEENT History: Bilateral hearing aids, glasses, upper/lower partial dentures Cardiovascular History: Reports: CAD, Heart Failure, High Cholesterol, Hypertension, [place] Respiratory History: Reports: Sleep Apnea Other Respiratory History: cpap used at home. Pneumonia March 2021 Gastrointestinal History: Reports: GERD, Hemorrhoids Genitourinary History: Reports: BPH, Chronic Renal Insuffiency, Renal Calculus Other Genitourinary History: Prostate cancer - seeds implanted. Musculoskeletal History: Reports: Gout, Osteoarthritis Neurological History: Reports: CVA Other Neuro History: no residual affect -improved with therapy Endocrine/Metabolic History: Reports: Diabetes, Type II Oncologic (Cancer) History: Reports: Prostate Other Oncologic History: seeds implanted - Infectious Disease History Infectious Disease History: Reports: None - Past Surgical History HEENT Surgical History: Reports: Cataract Surgery Other HEENT Surgeries/Procedures: bi-lat Cardiovascular Surgical History: Reports: Carotid Endarterectomy, Coronary Artery Stent GI Surgical History: Reports: Colonoscopy, Hernia, Inguinal Male Surgical History: Reports: Other (See Below) Other Male Surgeries/Procedures: prostate cancer - seeds Social & Family History - Family History Family Medical History: No Pertinent Family History - Tobacco Use Tobacco Use Status *Q: Never Tobacco User - Caffeine Use Caffeine Use: Reports: Coffee Other Caffeine Use: 3 cups/day - Recreational Drug Use Recreational Drug Use: No - Living Situation & Occupation Living situation: Reports: , with Spouse Occupation: Retired ED ROS GENERAL - Review of Systems Review Of Systems: See Below Constitutional: Reports: No Symptoms HEENT: Reports: No Symptoms Respiratory: Reports: Shortness of Breath, Cough Cardiovascular: Reports: No Symptoms Endocrine: Reports: No Symptoms GI/Abdominal: Reports: No Symptoms : Reports: No Symptoms ED EXAM, GENERAL - Physical Exam Exam: See Below Exam Limited By: No Limitations General Appearance: Alert, No Apparent Distress Ears: Normal External Exam Nose: Normal Inspection Head: Atraumatic, Normocephalic Neck: Normal Inspection Respiratory/Chest: No Respiratory Distress, Rhonchi Cardiovascular: Regular Rate, Rhythm, No Edema, No Murmur GI/Abdominal: Soft, Non-Tender, No Organomegaly, No Mass Back Exam: Normal Inspection Extremities: Normal Inspection #1 Interpretation EKG Date: 05/03/21 Time: 09:04 Rhythm: Other (atrial sensed ventricular paced rhythm) Course - Vital Signs Last Recorded V/S: Last Vital Signs Temp 96.9 F 05/03/21 08:44 Pulse 76 05/03/21 08:44 Resp 28 H 05/03/21 08:44 BP 125/54 L 05/03/21 08:44 Pulse Ox 96 05/03/21 08:44 - Orders/Labs/Meds Orders: Active Orders 24 hr Category Date Time Status Cardiac Monitoring [RC] . DIRECTED Care 05/03/21 08:53 Active EKG Documentation Completion [RC] STAT Care 05/03/21 08:54 Active Oxygen Therapy [RC] PRN Care 05/03/21 08:53 Active Peripheral IV Care [RC] . DIRECTED Care 05/03/21 08:54 Active RT Aerosol Therapy [RC] ASDIRECTED Care 05/03/21 08:55 Active Sodium Chloride 0.9% [Saline Flush] Med 05/03/21 08:53 Active 10 ml FLUSH ASDIRECTED PRN Peripheral IV Insertion Adult [OM.PC] Stat Oth 05/03/21 08:53 Ordered Medication Orders Sodium Chloride (Sodium Chloride 0.9% 10 Ml Syringe) 10 ml FLUSH ASDIRECTED PRN PRN Reason: Keep Vein Open Last Admin: 05/03/21 09:14 Dose: 10 ml Documented by: Admin: 05/03/21 09:08 Dose: 10 ml Documented by: ERROL Labs: Laboratory Tests 05/03/21 05/03/21 05/03/21 Range/Units 09:15 09:15 09:15 WBC 6.03 (4.23-9.07) K/mm3 RBC 3.46 L (4.63-6.08) M/mm3 Hgb 10.0 L (13.7-17.5) gm/dl Hct 33.3 L (40.1-51.0) % MCV 96.2 H (79.0-92.2) fl MCH 28.9 (25.7-32.2) pg MCHC 30.0 L (32.2-35.5) g/dl RDW Std Deviation 61.9 H (35.1-43.9) fL Plt Count 156 L (163-337) K/mm3 MPV 12.0 (9.4-12.3) fl Neut % (Auto) 73.9 H (34.0-67.9) % Lymph % (Auto) 7.0 L (21.8-53.1) % [place] % (Auto) 15.6 H (5.3-12.2) % Eos % (Auto) 3.3 (0.8-7.0) Baso % (Auto) 0.2 (0.1-1.2) % Neut # (Auto) 4.46 (1.78-5.38) K/mm3 Lymph # (Auto) 0.42 L (1.32-3.57) K/mm3 [place] # (Auto) 0.94 H (0.30-0.82) K/mm3 Eos # (Auto) 0.20 (0.04-0.54) K/mm3 Baso # (Auto) 0.01 (0.01-0.08) K/mm3 Manual Slide Review Abnormal smear Sodium 141 (136-145) mEq/L Potassium 3.8 (3.5-5.1) mEq/L Chloride 104 (98-107) mEq/L Carbon Dioxide 28 (21-32) mEq/L Anion Gap 12.8 (5-15) BUN 59 H D (7-18) mg/dL Creatinine 2.6 H (0.7-1.3) mg/dL Est Cr Clr Drug Dosing 17.38 mL/min Estimated GFR (MDRD) 23 (>60) mL/min BUN/Creatinine Ratio 22.7 H (14-18) Glucose 128 H (70-99) mg/dL Calcium 8.6 (8.5-10.1) mg/dL Total Bilirubin 0.6 (0.2-1.0) mg/dL AST 26 (15-37) U/L ALT 25 (16-63) U/L Alkaline Phosphatase 86 (46-116) U/L Troponin I 0.019 (0.00-0.056) ng/mL NT-Pro-B Natriuret Pep > 53493 H (0-450) pg/mL Total Protein 5.7 L (6.4-8.2) g/dl Albumin 2.9 L (3.4-5.0) g/dl Globulin 2.8 gm/dL Albumin/Globulin Ratio 1.0 (1-2) SARS-CoV-2 RNA (DONTE) (NEGATIVE) 05/03/21 Range/Units 09:34 WBC (4.23-9.07) K/mm3 RBC (4.63-6.08) M/mm3 Hgb (13.7-17.5) gm/dl Hct (40.1-51.0) % MCV (79.0-92.2) fl MCH (25.7-32.2) pg MCHC (32.2-35.5) g/dl RDW Std Deviation (35.1-43.9) fL Plt Count (163-337) K/mm3 MPV (9.4-12.3) fl Neut % (Auto) (34.0-67.9) % Lymph % (Auto) (21.8-53.1) % [place] % (Auto) (5.3-12.2) % Eos % (Auto) (0.8-7.0) Baso % (Auto) (0.1-1.2) % Neut # (Auto) (1.78-5.38) K/mm3 Lymph # (Auto) (1.32-3.57) K/mm3 [place] # (Auto) (0.30-0.82) K/mm3 Eos # (Auto) (0.04-0.54) K/mm3 Baso # (Auto) (0.01-0.08) K/mm3 Manual Slide Review Sodium (136-145) mEq/L Potassium (3.5-5.1) mEq/L Chloride (98-107) mEq/L Carbon Dioxide (21-32) mEq/L Anion Gap (5-15) BUN (7-18) mg/dL Creatinine (0.7-1.3) mg/dL Est Cr Clr Drug Dosing mL/min Estimated GFR (MDRD) (>60) mL/min BUN/Creatinine Ratio (14-18) Glucose (70-99) mg/dL Calcium (8.5-10.1) mg/dL Total Bilirubin (0.2-1.0) mg/dL AST (15-37) U/L ALT (16-63) U/L Alkaline Phosphatase (46-116) U/L Troponin I (0.00-0.056) ng/mL NT-Pro-B Natriuret Pep (0-450) pg/mL Total Protein (6.4-8.2) g/dl Albumin (3.4-5.0) g/dl Globulin gm/dL Albumin/Globulin Ratio (1-2) SARS-CoV-2 RNA (DONTE) Negative (NEGATIVE) Meds: Medications Generic Name Dose Route Start Last Admin Trade Name Freq PRN Reason Stop Dose Admin Sodium Chloride 10 ml 05/03/21 08:53 05/03/21 09:14 Sodium Chloride 0.9% 10 Ml Syringe FLUSH 10 ml ASDIRECTED PRN Administration Keep Vein Open Discontinued Medications Generic Name Dose Route Start Last Admin Trade Name Freq PRN Reason Stop Dose Admin Albuterol/Ipratropium 3 ml 05/03/21 08:55 05/03/21 09:34 Albuterol/Ipratropium 3.0-0.5 Mg/3 Ml Neb Soln NEB 05/03/21 08:56 3 ml ONETIME ONE Administration - Re-Assessments/Exams Free Text/Narrative Re-Assessment/Exam: 05/03/21 12:03 I ordered an IV saline lock, duoneb, EKG, CXR and labs. His EKG is paced. His CXR shows mild CHF. His Hgb is low at 10. His creatinine is elevated at 2.6. That is at baseline for him. His glucose is elevated at 128. His troponin is negative. His BNP is >35,000. He is COVID [address] Khan was out so I called [facility] in [place] and talked with Dr Gallegos and he wanted the patient on 20mg BID of torsamide until Friday and then down to once per day. Departure - Departure Time of Disposition: 12:10 Disposition: Home, Self-Care 01 Condition: Good Clinical Impression: CHF (congestive heart failure) Qualifiers: Heart failure type: systolic Heart failure chronicity: acute on chronic Qualified Code(s): I50.23 - Acute on chronic systolic (congestive) heart failure - Discharge Information *PRESCRIPTION DRUG MONITORING PROGRAM REVIEWED*: Not Applicable *COPY OF PRESCRIPTION DRUG MONITORING REPORT IN PATIENT MING: Not Applicable Prescriptions: Torsemide [Demadex] 20 mg PO BID #30 tab Referrals: Johan Khan MD [Primary Care Provider] - Forms: ED Department Discharge Additional Instructions: Take the torsemide 20mg 2 times per day until Friday and then on Friday take it once per day. Follow up with Dr Khan and the congestive heart failure clinic. Please return if you are worse. Sepsis Event Note (ED) - Evaluation Sepsis Screening Result: No Definite Risk - Focused Exam Vital Signs: Vital Signs Temp Pulse Resp BP Pulse Ox 05/03/21 08:44 96.9 F 76 28 H 125/54 L 96 - My Orders Last 24 Hours: My Active Orders 05/03/21 08:53 Cardiac Monitoring [RC] . DIRECTED Oxygen Therapy [RC] PRN Sodium Chloride 0.9% [Saline Flush] 10 ml FLUSH ASDIRECTED PRN Peripheral IV Insertion Adult [OM.PC] Stat 05/03/21 08:54 EKG Documentation Completion [RC] STAT Peripheral IV Care [RC] . DIRECTED 05/03/21 08:55 RT Aerosol Therapy [RC] ASDIRECTED - Assessment/Plan Last 24 Hours: My Active Orders 05/03/21 08:53 Cardiac Monitoring [RC] . DIRECTED Oxygen Therapy [RC] PRN Sodium Chloride 0.9% [Saline Flush] 10 ml FLUSH ASDIRECTED PRN Peripheral IV Insertion Adult [OM.PC] Stat 05/03/21 08:54 EKG Documentation Completion [RC] STAT Peripheral IV Care [RC] . DIRECTED 05/03/21 08:55 RT Aerosol Therapy [RC] ASDIRECTED
== END 2021-05-03 12:22 | disposition home or self-care (01) ==
LOC: JD.ED 08:33
DX: I13.0 Hypertensive heart and chronic kidney disease with heart failure and stage 1 through stage 4 chronic kidney disease, or unspecified chronic kidney disease (principal); I50.23 Acute on chronic systolic (congestive) heart failure; N18.9 Chronic kidney disease, unspecified; E11.22 Type 2 diabetes mellitus with diabetic chronic kidney disease; I25.10 Atherosclerotic heart disease of native coronary artery without angina pectoris; E78.00 Pure hypercholesterolemia, unspecified; K21.9 Gastro-esophageal reflux disease without esophagitis; E11.9 Type 2 diabetes mellitus without complications; M10.9 Gout, unspecified; N40.0 Benign prostatic hyperplasia without lower urinary tract symptoms; Z20.822 Contact with and (suspected) exposure to COVID-19; Z86.73 Personal history of transient ischemic attack (TIA), and cerebral infarction without residual deficits
CPT/HCPCS: 36415; 71045; 80053; 83880; 84484; 85025; 93005; 94640; 99285; U0002; 99284; J7620-GY